=== PATIENT | female | born 2000 | race Caucasian/White ===

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

== ENCOUNTER → 2021-01-04 07:51 | Outpatient (BNVA) | payer OTHER, SELFPAY | PROVIDERS: PCP Family Medicine; Visit Provider Physician Assistant ==

== ENCOUNTER → 2021-01-05 15:22 | Outpatient (BNVA) | payer OTHER, SELFPAY | PROVIDERS: PCP Family Medicine; Visit Provider Surgery | DX: K80.20 Calculus of gallbladder without cholecystitis without obstruction (principal) | CPT/HCPCS: 99202 ==

== ENCOUNTER 2021-01-23 07:25 | Day surgery (SDC) | payer OTHER, SELFPAY ==
[2021-01-17 10:58] VITALS: BMI 26.2
--- NOTE | 2021-01-18 15:05 | P.CONAN_ITS ---
Documented by User: Tati Suresh 01/18/21 15:12 HPI - Anesthesia Eval Consult details Narrative: 20yo F for Cholecystectomy Laparoscopic,poss open PMFSH Active Problems Active Problems: All Active Problems (Updated 01/17/21 @ 11:01 by Patricia Potts) Abdominal pain (Acute) Depression (Acute) Abnormal abdominal ultrasound (Acute) Symptomatic cholelithiasis (Acute) Gastroesophageal reflux disease (Acute) Past Medical History Medical History (Updated 01/23/21 @ 08:08 by Kyra Nunez RN) Anxiety Bilateral congenital whfrhg-zggdmig-kjjll reflux COVID-19 vaccine series completed Depression Gastroesophageal reflux disease TMJ dysfunction Family History Family History Maternal Grandfather Lymphoma Family/Other Lung cancer Family/Other History of kidney cancer Surgical History Surgical History H/O eye surgery [place] teeth removed Social History Social History Household Members: Family Household Members Other:: Patient lives with Grandmother Are you a primary animal care service worker to a significant other at home: No Do you presently have visiting nurse or other home services: No Alcohol intake: never Patient Tobacco Use Status: Never used Tobacco Use of substances other than those prescribed or required for medical reasons: No Have you been hit, kicked, punched, or otherwise hurt by someone within the past year? If so, by whom?: No Are you DNR?: No Advance Directives: No Advance Directives Information Provided: No Advance Directives on File: No Recently lost weight without trying: No Eating poorly because of decreased appetite: No Nutrition Risks: No Nutritional Risk Patient : No FDLMP: 01/16/21 : No Current occupational status: student Meds Allergies Allergy/AdvReac Type Severity Reaction Status Date / Time pantoprazole Allergy Hives Verified 01/23/21 08:03 Home Medications Medication Instructions Recorded Confirmed Last Taken Type clonidine HCl 0.2 mg tablet 0.2 mg PO BEDTIME 10/13/20 01/17/21 Unknown History hydroxyzine pamoate 25 mg capsule 25 mg PO TID PRN 10/13/20 01/17/21 Unknown History sertraline 100 mg tablet 100 mg PO BEDTIME 10/13/20 01/17/21 Unknown History venlafaxine 37.5 mg 37.5 mg PO BID 01/05/21 01/17/21 Unknown History capsule,extended release 24 hr Exam Exam Date and Time: January 18, 2021 1505 Height,Weight and Vital Signs: Height 5 ft 9 in Weight 80.739 kg Pertinent Lab Results Pertinent Lab Results: Laboratory Tests 10/14/20 10/14/20 09:49 09:49 WBC 8.3 Hgb 13.2 Hct 41.9 Plt Count 339 Sodium 140 Potassium 4.4 Chloride 104 Carbon Dioxide 27 BUN 8 L Creatinine 0.79 Assessment and Plan Assessment Anesthesia Assessment: Chart Reviewed Documented by User: Una Sadler 01/23/21 08:53 [facility] Past Medical History Medical History (Updated 01/23/21 @ 08:08 by Kyra Nunez RN) Anxiety Bilateral congenital beaqgi-jrmqvzd-vwpso reflux COVID-19 vaccine series completed Depression Gastroesophageal reflux disease TMJ dysfunction Family History Family History Maternal Grandfather Lymphoma Family/Other Lung cancer Family/Other History of kidney cancer Surgical History Surgical History H/O eye surgery [place] teeth removed Social History Social History Household Members: Family Household Members Other:: Patient lives with Grandmother Are you a primary animal care service worker to a significant other at home: No Do you presently have visiting nurse or other home services: No Alcohol intake: never Patient Tobacco Use Status: Never used Tobacco Use of substances other than those prescribed or required for medical reasons: No Have you been hit, kicked, punched, or otherwise hurt by someone within the past year? If so, by whom?: No Are you DNR?: No Advance Directives: No Advance Directives Information Provided: No Advance Directives on File: No Recently lost weight without trying: No Eating poorly because of decreased appetite: No Nutrition Risks: No Nutritional Risk Patient : No FDLMP: 01/16/21 : No Current occupational status: student Meds Allergies Allergy/AdvReac Type Severity Reaction Status Date / Time pantoprazole Allergy Hives Verified 01/23/21 08:03 Home Medications Medication Instructions Recorded Confirmed Last Taken Type clonidine HCl 0.2 mg tablet 0.2 mg PO BEDTIME 10/13/20 01/17/21 Unknown History hydroxyzine pamoate 25 mg capsule 25 mg PO TID PRN 10/13/20 01/17/21 Unknown History sertraline 100 mg tablet 100 mg PO BEDTIME 10/13/20 01/17/21 Unknown History venlafaxine 37.5 mg 37.5 mg PO BID 01/05/21 01/17/21 Unknown History capsule,extended release 24 hr Exam Airway Mallampati Class: II (Limited mouth open due to tmj) TM Dist: >3cm Neck ROM: Full Heart: rrr Lungs: cta Assessment and Plan Assessment Anesthesia Assessment: Anesthesia Plan Discussed and Chart Reviewed Final Anesthetic Review NPO: Yes ASA Class: II Final Preanesthetic Review: No Changes in Pt Med Stat and Consent Obtained/Reviewed Patient Risk: Intermediate Procedure Risk: Intermediate Anesthetic Plan Anesthetic Plan: GA Disposition: Standard PACU
[2021-01-23] VITALS (15 sets, daily range): BP systolic 97–120; BP diastolic 55–69; PULSE 73–100; RESP 14–18; TEMP 36.1–36.6; O2SAT 94–100
[2021-01-23 08:12] LABS: UPreg QC Valid YES; Urine Pregnancy NEGATIVE (NEGATIVE)
[2021-01-23] MEDS: Acetaminophen 325 MG TABLET 650 MG PO (08:32)
[2021-01-23] MEDS: Lactated Ringers 1,000 ML 100 ML IVCONT (08:42)
--- NOTE | 2021-01-23 09:06 | PC.NURSE ---
AFTER RECEIVING IV INSERTION PATIENT STARTED TO DRY HEAVE AND FELT NAUSEOUS. NO VOMITTING. APPLIED COOL CLOTHS TO HER FOREHEAD. OFFERRED NAUSEA MEDICATION AND REFUSED.
--- NOTE | 2021-01-23 09:11 | MHC.SHP ---
Pre-Procedural Eval Section A The patient is an INPATIENT: No Changes since office visit: Yes Patient answered all questions; No Cold of Flu in the past 2 weeks, No New Medical Problems and No Changes in Medication The History & Physical has been completed within 30 days and I have reviewed it.: Yes Section B Chief Complaint: calculus of gallbladder Allergies: Allergies Allergy/AdvReac Type Severity Reaction Status Date / Time pantoprazole Allergy Hives Verified 01/23/21 08:03 Plan Diagnosis/Plan: Unchanged I have reviewed the history and physical and performed a pertinent physical examination on my patient. No changes have occurred unless specified.
--- NOTE | 2021-01-23 11:06 | P.OP_ITS ---
Operative Note Operative Note Date of Service: 01/23/21 Narrative: Preoperative diagnosis: Symptomatic cholelithiasis Postoperative diagnosis: Same Procedure: Laparoscopic cholecystectomy Surgeon: Rodrick Garcia MD Final Finisher Forging Dies: No physician Anesthesia: General endotracheal Indications for procedure: 20-year-old female patient with complaints of abdominal pain in the epigastrium right upper quadrant associated with nausea and vomiting found to have gallstones within the gallbladder and tenderness palpation of the gallbladder with the ultrasound. Findings suggestive of symptomatic cholelithiasis Operative findings: Multiple adhesions to the gallbladder from the transverse mesocolon with inflamed gallbladder and stone at the neck of the gallbladder. Specimen: Gallbladder Estimated blood loss: 5 mL Complications: None Procedure details: Patient was brought to the OR and placed in a supine position. After administering general anesthesia the patient's abdomen was prepped with ChloraPrep and draped in a sterile fashion. Local anesthesia consisting of 0.25% Sensorcaine with epinephrine was infiltrated in a periumbilical region. A 5 mm incision was made above the umbilicus in a transverse fashion. The Veress needle was then inserted while elevating ab dominal cavity with towel clips. After positive drop test the abdomen was insufflated to a pressure of 15 mm of mercury. The Veress needle was then removed and a 5 mm trocar inserted. The camera was inserted in the abdomen explored. A 12 mm trocar was then placed in the epigastrium and two 5 mm trocars placed in the right upper quadrant. The patient was placed in reverse Trendelenburg positioning and rotated to the left. The gallbladder was grasped with the fundus and retracted cephalad. Adhesions were taken down using the Dolphin dye sector. The infundibulum was then grasped and retracted away from the liver bed. The Dolphin dissected was then used to dissect the peritoneum off the infundibulum to reveal the junction with the cystic duct. Cystic artery was noted slightly medial and posterior to the cystic duct. After obtaining a critical view the cystic duct was doubly clipped and divided. The cystic artery was then doubly clipped and divided. A posterior branch was also identified and doubly clipped and divided. The gallbladder was then dissected off the liver bed using electrocautery with an L hook. Hemostasis was assured all times using the electrocautery. When the gallbladder is completely dissected off the liver bed was placed in an Endo-Catch bag and brought out through the epigastric incision. The gallbladder was sent to pathology for further examination. The abdomen was then re-examined. The liver bed was irrigated and suctioned dry. No bleeding or bile leak could be identified. CO2 was then evacuated and all trocars removed. Fascia was closed at the epigastric incision using a [id number] 0 Polysorb suture. Skin was closed in all incisions using a subcuticular 4 0 Polysorb suture. Sterile dressings consisting of Steri-Strips, 2 x 2 gauze, and Tegaderm were then applied. The patient tolerated the procedure well. Sponge instrument and needle counts reported as correct. The patient was transferred to PACU in stable condition.
[2021-01-23] MEDS: fentaNYL citrate/PF 100 MCG/2 ML VIAL 50 MCG IVPUSH ×3 (11:25→12:35)
[2021-01-23] MEDS: oxyCODONE HCl Immed Release 5 MG TABLET PO (11:30)
== END 2021-01-23 13:45 | disposition home or self-care (01) ==
PROVIDERS: Nurse Practitioner; PCP Family Medicine; Visit Provider Surgery
PROC: 0FT44ZZ Resection of Gallbladder, Percutaneous Endoscopic Approach (ICD-10-PCS; CPT 47562; principal; 2021-01-23 09:30)
DX: K80.10 Calculus of gallbladder with chronic cholecystitis without obstruction (principal); K82.8 Other specified diseases of gallbladder; K21.9 Gastro-esophageal reflux disease without esophagitis; Q62.7 Congenital vesico-uretero-renal reflux; Z90.49 Acquired absence of other specified parts of digestive tract
CPT/HCPCS: 47562; 81025; 88304; J0330; J1100; J2250; J2405; J2765; J3010

== ENCOUNTER → 2021-01-31 09:09 | Outpatient (BNVA) | payer OTHER, SELFPAY | PROVIDERS: PCP Family Medicine; Visit Provider Surgery | DX: Z48.815 Encounter for surgical aftercare following surgery on the digestive system (principal); Z90.49 Acquired absence of other specified parts of digestive tract; Z87.19 Personal history of other diseases of the digestive system | CPT/HCPCS: 99212 ==

== ENCOUNTER → 2021-02-15 08:03 | Outpatient (BNVA) | payer OTHER, SELFPAY | PROVIDERS: PCP Family Medicine; Visit Provider Physician Assistant ==

== ENCOUNTER 2021-02-21 16:13 | Outpatient (REF) | payer OTHER, SELFPAY ==
[2021-02-21 17:22] LABS: MANUAL DIFF FLAG NO
[2021-02-21 17:26] LABS: Basophils Absolute Auto 0.1 X10*3/uL (0.0-0.2); Basophils Percent Auto 0.7 % (0-2); Eosinophils Absolute Auto 0.3 X10*3/uL (0.0-0.4); Eosinophils Percent Auto 3.2 % (0-4); Hematocrit 42.4 % (37-47); Hemoglobin 13.5 g/dl (12.0-16.0); Imm Gran Abs Auto 0.02 X10*3/uL (0.00-0.03); Imm Gran Pct Auto 0.2 % (0.0-0.4); Lymphocytes Absolute Auto 3.7 X10*3/uL (1.2-4.9); Lymphocytes Percent Auto 37.2 % (20-40); Mean Corpuscular HGB Conc 31.8 g/dl (31.0-35.0); Mean Corpuscular Hemoglobin 27.1 pg (27.0-33.0); Mean Corpuscular Volume 85.1 fL (80-98); Mean Platelet Volume 13.1 fL (9.4-12.3); Monocytes Absolute Auto 0.8 X10*3/uL (0.1-1.2); Monocytes Percent Auto 7.6 % (2-11); Neutrophils Absolute Auto 5.1 X10*3/uL (2.0-8.3); Neutrophils Percent Auto 51.1 % (45-73); Platelet Count 303 X10*3/uL (160-400); Red Blood Count 4.98 X10*6/uL (4.20-5.50); Red Cell Distribution Width 14.5 % (11.0-16.0); White Blood Count 9.9 X10*3/uL (4.8-10.8)
[2021-02-21 17:44] LABS: Alanine Aminotransferase 9 U/L (0-31); Albumin Level 4.4 g/dL (3.5-5.0); Alkaline Phosphatase 115 U/L (39-117); Anion Gap 13 (12-20); Aspartate Amino Transferase 17 U/L (5-31); Bilirubin Total 0.2 mg/dL (0.0-1.0); Blood Urea Nitrogen 10 mg/dL (9-16); Calcium 9.4 mg/dL (8.4-10.2); Carbon Dioxide 22 mmol/L (22-29); Chloride 108 mmol/L (96-108); Estimated Glomerular Filt Rate > 60; Glucose Random 96 mg/dL (60-115); Potassium 4.2 mmol/L (3.3-5.1); Sodium 139 mmol/L (135-145); Total Protein 7.7 g/dL (6.5-8.0)
[2021-02-21 18:03] LABS: Ferritin 66 ng/mL (10-122)
== END 2021-02-21 16:14 | disposition home or self-care (01) ==
LOC: HO.LAB 16:13
PROVIDERS: Physician Assistant; PCP Pediatrics; Visit Provider Pediatrics
DX: R10.11 Right upper quadrant pain (principal); R42 Dizziness and giddiness; R74.01 Elevation of levels of liver transaminase levels
CPT/HCPCS: 36415; 80053; 82728; 85025

== ENCOUNTER 2021-02-25 13:31 | Emergency (ER) | payer OTHER, SELFPAY ==
[2021-02-25 13:36] VITALS: BP 128/84; PULSE 103; RESP 18; TEMP 37.3; O2SAT 97; BMI 25.1
--- NOTE | 2021-02-25 14:25 | ED.ABDPAIN ---
HPI - Abdominal Pain General Chief Complaint: Abdominal Pain Stated Complaint: ABD PAIN Time Seen by Provider: 02/25/21 14:25 Source: patient Mode of arrival: ambulatory Limitations: no limitations History of Present Illness HPI narrative: patient with left sided abdominal pain for the past few months. patient with vomiting. patient had her gallbladder removed with no improvement. Patient is followed by GI and supposed to be scoped. Patient denies dysuria, no hematuria MD elicited complaint: abdominal pain Pertinent past history: none Onset (ago): month(s) Pain Consistency: intermittent Location: LUQ Severity: mild Quality: cramping Associated symptoms: nausea and vomiting Related Data Home Medications Medication Instructions Recorded Confirmed clonidine HCl 0.2 mg tablet 0.2 mg PO BEDTIME 10/13/20 02/21/21 hydroxyzine pamoate 25 mg capsule 25 mg PO TID PRN 10/13/20 02/21/21 sertraline 100 mg tablet 100 mg PO BEDTIME 10/13/20 02/21/21 venlafaxine 37.5 mg 37.5 mg PO BID 01/05/21 02/21/21 capsule,extended release 24 hr omeprazole 40 mg capsule,delayed 40 mg PO DAILY 02/15/21 02/21/21 release Previous Rx's Medication Instructions Recorded methylcellulose (laxative) 500 mg 500 mg PO BID #60 tab 11/30/20 tablet barium sulfate 2 % (w/v) oral 450 ml PO DIRECTED 1 Days #900 02/15/21 suspension ml hyoscyamine sulfate [Levsin] 0.25 mg PO QID PRN #20 tab 02/25/21 Allergies Allergy/AdvReac Type Severity Reaction Status Date / Time pantoprazole Allergy Hives Verified 02/15/21 08:04 Review of Systems Constitutional: Reports no additional constitutional complaints Eyes: Reports no additional eye complaints Denies dizziness Cardiovascular: Reports no additional cardiovascular complaints Respiratory: Reports as per HPI Gastrointestinal: Reports no additional gastrointestinal complaints Genitourinary: Reports no additional female genitourinary complaints Musculoskeletal: Reports no additional musculoskeletal complaints Skin/Breast: Denies rash Reports system reviewed and no additional complaints, except as documented, Denies dizziness and Denies Sensory deficit (Neuro) Psychiatric: Denies anxiety Physical Exam Vital Signs: Vital Signs: Last Vital Signs Temp 99.1 F 02/25/21 13:36 Pulse 103 H 02/25/21 13:36 Resp 18 02/25/21 13:36 BP 128/84 02/25/21 13:36 Pulse Ox 97 02/25/21 13:36 Body Mass Index 25.1 Const: Other: young female slightly anxious in no acute distress. Nutritional Appearance: average body habitus Orientation/consciousness: oriented to person and patient oriented x3 Limitations: no limitations HENMT: Head: Yes normal to inspection Ears: external ears normal General nose exam: Normal external nose present Mouth: Normal oral and palatal mucosa present and oropharynx normal Throat: Yes posterior oropharynx normal Eyes: General: appearance normal, both eyes and all related structures Neck: Other: supple Neck: Yes normal visual inspection Chest: Chest palpation & inspection: normal inspection of the chest Resp: Auscultation: clear to auscultation bilaterally Cardio: Jugular venous distension: no JVD Rate: regular rate Rhythm: regular rhythm Heart sounds: S1 normal heart sound present and S2 normal heart sound present GI: Inspection: Yes normal to inspection Palpation (GI): Soft to palpation, nontender and No hepatosplenomegaly present Auscultation: normal bowel sounds : General: Yes no CVA tenderness Back/Spine/Pelvis: Back: no CVA tenderness Skin: General skin exam: no rashes or lesions noted Neuro: General: oriented to person and patient oriented x3 Cranial nerves: Yes CN's II-XII intact bilaterally Motor exam (neuro): 5/5 motor strength present throughout Sensory Exam: No Sensory deficit (Neuro) Extrem: General: Yes normal to inspection Psych: Appearance: grossly normal Course Reevaluation(s) Reevaluation #1: I have reviewed the patients charts. In the past two weeks she has been seen by both her supervisor drying and GI. There appears to be some anxiety overlay to the situation but patient is scheduled for CT scan and scoping. Time: 14:38 Reevaluation #2: labs and urine are negative, patient not acutely ill at this time will dc home Time: 17:40 MDM - Abdominal Pain Lab Data Result diagrams: 02/25/21 14:54 02/25/21 14:54 Labs: Lab Results 02/25/21 02/25/21 02/25/21 Range/Units 14:54 14:54 16:35 WBC 8.7 (4.8-10.8) X10*3/uL RBC 4.61 (4.20-5.50) X10*6/uL Hgb 12.7 (12.0-16.0) g/dl Hct 39.1 (37-47) % MCV 84.8 (80-98) fL MCH 27.5 (27.0-33.0) pg MCHC 32.5 (31.0-35.0) g/dl RDW 14.3 (11.0-16.0) % Plt Count 274 (160-400) X10*3/uL MPV 11.7 (9.4-12.3) fL Immature Gran % (Auto) 0.2 (0.0-0.4) % Neut % (Auto) 66.5 (45-73) % Lymph % (Auto) 24.2 (20-40) % Iron % (Auto) 7.4 (2-11) % Eos % (Auto) 1.2 (0-4) % Baso % (Auto) 0.5 (0-2) % Lymph # (Auto) 2.1 (1.2-4.9) X10*3/uL Iron # (Auto) 0.6 (0.1-1.2) X10*3/uL Eos # (Auto) 0.1 (0.0-0.4) X10*3/uL Baso # (Auto) 0.0 (0.0-0.2) X10*3/uL Abs Immat Gran (auto) 0.02 (0.00-0.03) X10*3/uL Absolute Neuts (auto) 5.8 (2.0-8.3) X10*3/uL Absolute Nucleated RBC 0.000 (0.0-0.012) X10*3/uL Nucleated RBC % (auto) 0.0 (0.0-0.2) /100WBC Sodium 139 (135-145) mmol/L Potassium 4.2 (3.3-5.1) mmol/L Chloride 106 (96-108) mmol/L Carbon Dioxide 22 (22-29) mmol/L Anion Gap 15 (12-20) BUN 6 L (9-16) mg/dL Creatinine 0.74 (0.5-1.4) mg/dL Estim Creat Clear Calc 127.8 Estimated GFR > 60 Random Glucose 76 (60-115) mg/dL Calcium 9.5 (8.4-10.2) mg/dL Total Bilirubin 0.7 (0.0-1.0) mg/dL Direct Bilirubin 0.3 (0.0-0.5) mg/dL AST 17 (5-31) U/L ALT 13 (0-31) U/L Alkaline Phosphatase 104 (39-117) U/L Total Protein 7.3 (6.5-8.0) g/dL Albumin 4.3 (3.5-5.0) g/dL Lipase 12 (8-78) U/L Urine RBC 0 (0) /HPF Urine WBC 1-4 (0-4) /HPF Ur Squamous Epith Cells 4+ /LPF Ur Renal Epithelial Cell TRACE /LPF Urine Bacteria 3+ /LPF Urine Yeast 1+ /HPF Urine Test (NEGATIVE) 02/25/21 Range/Units 16:35 WBC (4.8-10.8) X10*3/uL RBC (4.20-5.50) X10*6/uL Hgb (12.0-16.0) g/dl Hct (37-47) % MCV (80-98) fL MCH (27.0-33.0) pg MCHC (31.0-35.0) g/dl RDW (11.0-16.0) % Plt Count (160-400) X10*3/uL MPV (9.4-12.3) fL Immature Gran % (Auto) (0.0-0.4) % Neut % (Auto) (45-73) % Lymph % (Auto) (20-40) % Iron % (Auto) (2-11) % Eos % (Auto) (0-4) % Baso % (Auto) (0-2) % Lymph # (Auto) (1.2-4.9) X10*3/uL Iron # (Auto) (0.1-1.2) X10*3/uL Eos # (Auto) (0.0-0.4) X10*3/uL Baso # (Auto) (0.0-0.2) X10*3/uL Abs Immat Gran (auto) (0.00-0.03) X10*3/uL Absolute Neuts (auto) (2.0-8.3) X10*3/uL Absolute Nucleated RBC (0.0-0.012) X10*3/uL Nucleated RBC % (auto) (0.0-0.2) /100WBC Sodium (135-145) mmol/L Potassium (3.3-5.1) mmol/L Chloride (96-108) mmol/L Carbon Dioxide (22-29) mmol/L Anion Gap (12-20) BUN (9-16) mg/dL Creatinine (0.5-1.4) mg/dL Estim Creat Clear Calc Estimated GFR Random Glucose (60-115) mg/dL Calcium (8.4-10.2) mg/dL Total Bilirubin (0.0-1.0) mg/dL Direct Bilirubin (0.0-0.5) mg/dL AST (5-31) U/L ALT (0-31) U/L Alkaline Phosphatase (39-117) U/L Total Protein (6.5-8.0) g/dL Albumin (3.5-5.0) g/dL Lipase (8-78) U/L Urine RBC (0) /HPF Urine WBC (0-4) /HPF Ur Squamous Epith Cells /LPF Ur Renal Epithelial Cell /LPF Urine Bacteria /LPF Urine Yeast /HPF Urine Test NEGATIVE (NEGATIVE) Discharge Plan Discharge Clinical Impression: Abdominal pain Qualifiers: Abdominal location: left lower quadrant Qualified Code(s): R10.32 - Left lower quadrant pain Patient Disposition: Home, Self-Care Instructions: Abdominal Pain (ED) Prescriptions: New hyoscyamine sulfate [Levsin] 0.125 mg tablet 0.25 mg PO QID PRN (Reason: dyspepsia) Qty: 20 RF: 0 No Action hydroxyzine pamoate 25 mg capsule 25 mg PO TID PRN (Reason: Anxiety) RF: 0 clonidine HCl 0.2 mg tablet 0.2 mg PO BEDTIME RF: 0 sertraline 100 mg tablet 100 mg PO BEDTIME RF: 0 Citrucel 500 mg tablet 500 mg PO BID Qty: 60 RF: 5 venlafaxine 37.5 mg capsule,extended release 24hr 37.5 mg PO BID RF: 0 omeprazole 40 mg capsule,delayed release(DR/EC) 40 mg PO DAILY RF: 0 Readi-Cat 2 2 % (w/v) suspension 450 ml PO DIRECTED 1 Days Qty: 900 RF: 0 Referrals: Emmanuelle Rosado MD [Primary Care Provider] - 5 days PMFSH Past Medical History Medical History Anxiety Bilateral congenital oqkmmv-anhmpst-ccyle reflux COVID-19 vaccine series completed Depression Gastroesophageal reflux disease TMJ dysfunction Surgical History H/O eye surgery S/P laparoscopic cholecystectomy (01/23/21) [place] teeth removed Family History Family History Maternal Grandfather Lymphoma Family/Other Lung cancer Family/Other History of kidney cancer Social History Social History Household Members: Family Household Members Other:: Patient lives with Grandmother Are you a primary healthcare liaison to a significant other at home: No Do you presently have visiting nurse or other home services: No Alcohol intake: never Patient Tobacco Use Status: Never used Tobacco Advance Directives: No Advance Directives Information Provided: Yes Patient : No Current occupational status: student
[2021-02-25 14:59] LABS: Basophils Percent Auto 0.5 % (0-2); Eosinophils Absolute Auto 0.1 X10*3/uL (0.0-0.4); Eosinophils Percent Auto 1.2 % (0-4); Hematocrit 39.1 % (37-47); Hemoglobin 12.7 g/dl (12.0-16.0); Imm Gran Abs Auto 0.02 X10*3/uL (0.00-0.03); Imm Gran Pct Auto 0.2 % (0.0-0.4); Lymphocytes Absolute Auto 2.1 X10*3/uL (1.2-4.9); Lymphocytes Percent Auto 24.2 % (20-40); Mean Corpuscular HGB Conc 32.5 g/dl (31.0-35.0); Mean Corpuscular Hemoglobin 27.5 pg (27.0-33.0); Mean Corpuscular Volume 84.8 fL (80-98); Mean Platelet Volume 11.7 fL (9.4-12.3); Monocytes Absolute Auto 0.6 X10*3/uL (0.1-1.2); Monocytes Percent Auto 7.4 % (2-11); Neutrophils Absolute Auto 5.8 X10*3/uL (2.0-8.3); Neutrophils Percent Auto 66.5 % (45-73); Platelet Count 274 X10*3/uL (160-400); Red Blood Count 4.61 X10*6/uL (4.20-5.50); Red Cell Distribution Width 14.3 % (11.0-16.0); White Blood Count 8.7 X10*3/uL (4.8-10.8)
[2021-02-25 15:00] LABS: MANUAL DIFF FLAG NO
[2021-02-25 15:41] LABS: Alanine Aminotransferase 13 U/L (0-31); Albumin Level 4.3 g/dL (3.5-5.0); Alkaline Phosphatase 104 U/L (39-117); Anion Gap 15 (12-20); Aspartate Amino Transferase 17 U/L (5-31); Bilirubin Direct 0.3 mg/dL (0.0-0.5); Bilirubin Total 0.7 mg/dL (0.0-1.0); Blood Urea Nitrogen 6 mg/dL (9-16); Calcium 9.5 mg/dL (8.4-10.2); Carbon Dioxide 22 mmol/L (22-29); Chloride 106 mmol/L (96-108); Creatinine Clr Calc Pharmacy 127.8; Estimated Glomerular Filt Rate > 60; Glucose Random 76 mg/dL (60-115); Lipase 12 U/L (8-78); Potassium 4.2 mmol/L (3.3-5.1); Sodium 139 mmol/L (135-145); Total Protein 7.3 g/dL (6.5-8.0)
[2021-02-25 16:58] LABS: Glucose Urine UA NEG (NEG); Leukocyte Esterase Urine TRACE (NEG); Nitrite Urine NEG (NEG); Specific Gravity - Urine >= 1.030 (1.005-1.025); UACC Culture Trigger YES; Urine Blood 2+ (NEG); Urine Ketones >=80 MG/DL (NEG); Urine Protein NEG (NEG-TRACE)
[2021-02-25 17:02] LABS: Appearance Urine HAZY; Color Urine YELLOW
[2021-02-25 17:03] LABS: UPreg QC Valid YES; Urine Pregnancy NEGATIVE (NEGATIVE)
[2021-02-25 17:26] LABS: Bacteria Urine 3+ /LPF; RBC Urine 0 /HPF (0); Renal Epithelial Cells Urine TRACE /LPF; Squamous Epithelial Cell Urine 4+ /LPF; UACC CULT YES
== END 2021-02-25 18:27 | disposition home or self-care (01) ==
PROVIDERS: Emergency Provider Emergency Medicine; PCP Pediatrics
DX: R10.32 Left lower quadrant pain (principal)
CPT/HCPCS: 36415; 80048; 80076; 81001; 81003; 81025; 83690; 85025; 87086; 99283

== ENCOUNTER 2021-03-01 14:08 | Outpatient (REF) | payer OTHER, SELFPAY ==
--- NOTE | ~2021-03-01 | CT_ITS ---
EXAMINATION: CT ABDOMEN AND PELVIS WITH CONTRAST CLINICAL INFORMATION: Abdominal pain. COMPARISON: Ultrasound abdomen 12/14/2020. TECHNIQUE: Multidetector volumetric images were obtained from the superior aspect of the liver through the pubic symphysis following administration 85 mL of Omnipaque 350 intravenous contrast. Sagittal and coronal reformatted images were obtained on the technologist's workstation. Oral contrast: No This CT examination was performed using dose optimization techniques as appropriate, variously including the following: *Automated exposure control *Adjustment of mA and/or kV according to patient size (this includes techniques or standardized protocols for targeted exams where dose is matched to indication/reason for exam; i.e. extremities or head) *Use of iterative reconstruction technique DLP: 396 mGy-cm FINDINGS: LUNG BASES: The visualized lung bases are unremarkable. LIVER, GALLBLADDER, AND BILIARY TREE: The liver is normal in size, shape, and attenuation. No focal hepatic lesion or biliary ductal dilatation is present. The gallbladder has been surgically removed. PANCREAS: Unremarkable. SPLEEN: Unremarkable. ADRENAL GLANDS: Unremarkable. KIDNEYS AND URETERS: The kidneys are normal in size, shape, and attenuation. No hydronephrosis, hydroureter, or calculi seen. No perinephric stranding. BLADDER: Unremarkable. GASTROINTESTINAL TRACT: The small and large bowel are unremarkable. The appendix is unremarkable. ABDOMINAL WALL: No significant hernia is appreciated. There is a linear scar seen in upper abdominal wall from previous intervention. LYMPH NODES: Normal. VASCULAR: Unremarkable. PELVIC VISCERA: The uterus is retroverted and appears unremarkable. No adnexal mass or free fluid seen. OSSEOUS STRUCTURES: There is punctate annular calcification at L5-S1 disc level. CT/CT abdomen pelvis w con IMPRESSION: No acute intra-abdominal process seen. Mild constipation. No obstruction seen. Normal appendix. Retroverted uterus appears unremarkable.
[2021-03-01] MEDS: iohexoL 350 MG/ML 100 ML INFUS..BTL 85 ML IV (14:44)
== END 2021-03-01 14:09 | disposition home or self-care (01) ==
LOC: HO.CT 14:08
PROVIDERS: PCP Physician Assistant; Visit Provider Physician Assistant
DX: R10.9 Unspecified abdominal pain (principal)
CPT/HCPCS: 74177; Q9967

== ENCOUNTER → 2021-03-08 13:52 | Outpatient (BNVA) | payer OTHER, SELFPAY | PROVIDERS: PCP Physician Assistant; Referring Provider Physician Assistant; Visit Provider Physician Assistant | DX: R10.9 Unspecified abdominal pain (principal); K21.9 Gastro-esophageal reflux disease without esophagitis; F32.9 Major depressive disorder, single episode, unspecified | CPT/HCPCS: 99212 ==

== ENCOUNTER 2023-08-07 10:00 | Outpatient (AMB) | payer OTHER, SELFPAY ==
[2023-08-07 11:00] VITALS: BP 118/70; PULSE 77; TEMP 36.7; O2SAT 99; BMI 24.8
--- NOTE | 2023-08-07 11:00 | MHC.OFFWIV ---
Intake Vital Signs 08/07/23 11:00 Height 5 ft 9 in Weight 168 lb BMI 24.8 BP 118/70 Blood Pressure Location Rt brachial Position Sitting Pulse 77 Pulse Source Pulse Oximeter Temp 98.1 F Temp Source Oral Pulse Oximetry (%) 99 Oxygen Delivery Method Room Air Intake Visit Reasons: EST/throwing up (lobby masked) Intake Note: pt is here for c.o throwing up 3x days Patient Tobacco Use Status: Never used Tobacco Allergies No Known Allergies Allergy (Verified 08/07/23 11:05) Do you need a note to return to daycare/school/sports/work: Yes HPI HPI Comments History of Present Illness Details Patient is a 23-year-old female in today for a sick visit. She is accompanied by her grandmother. She developed symptoms of nausea and vomiting x3 days. Denies recent fever, chest pain, diarrhea, constipation, dizziness, shortness of breath, blood in stool, or coffee-ground emesis. Patient has past medical history significant for vomiting and stomach discomfort with unknown etiology. She has a surgical history of cholecystectomy. Over the past 3 days the patient states that most the vomiting has occurred overnight. Has not tried taking any medication. She does also have anxiety which she believes contributes to the problem. Denies anyone else at home is sick. 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 COVID-19 vaccine series completed Anxiety Depression Gastroesophageal reflux disease Surgical History S/P laparoscopic cholecystectomy (01/23/21) [place] teeth removed H/O eye surgery Family History Maternal Grandfather Lymphoma Family/Other Lung cancer Family/Other History of kidney cancer Social History Household Members: Family Household Members Other:: Patient lives with Grandmother Are you a primary furnace caretaker to a significant other at home: No Do you presently have visiting nurse or other home services: No Alcohol intake: never Comment: medicated in pacu Patient Tobacco Use Status: Never used Tobacco Current occupational status: student Review of Systems Const Details: Constitutional : No Weight loss, No Fever, No Chills, No Fatigue, No Malaise ENT/Mouth : No sore throat, No Rhinorrhea Eyes: No Eye Pain, No Swelling, No Redness Cardiovascular : No Chest Pain, No SOB, No Dyspnea on Exertion, No Orthopnea, No Edema, No Palpitations Respiratory : No Cough, No Sputum, No Wheezing Gastrointestinal : Admits Nausea, Admits Vomiting, No Diarrhea, No Constipation, No abdominal Pain, No Hematochezia, No Melena Genitourinary : No Dysuria, No Urinary Frequency, No Hematuria, Musculoskeletal : No joint pain, No Myalgias, No Joint Swelling Skin : No Skin Lesions, No rash Neuro : No Weakness, No Numbness, No Dizziness, No Headache Psych : Admits some Anxiety/Panic Heme/Lymph: No Bruising, No Bleeding,No Lymphadenopathy Endocrine : No Polyuria, No Polydipsia All other systems reviewed and are negative Physical Exam Vital Signs: Last Vital Signs Temp 98.1 F 08/07/23 11:00 Pulse 77 08/07/23 11:00 BP 118/70 08/07/23 11:00 Pulse Ox 99 08/07/23 11:00 Oxygen Delivery Method Room Air 08/07/23 11:00 BMI result Body Mass Index 24.8 Vital signs have been reviewed and are stable Const Other: Appearance: Alert.? Oriented X3.? No acute distress.? ENT: Pharynx normal.? CVS: Normal heart rate and rhythm.? Pulses normal.? Respiratory: No respiratory distress.? Breath sounds normal.? Abdomen: Soft and nontender.?Hypoactive bowel sounds. Skin: Skin warm and dry.? Normal skin color.? Normal skin turgor.? Neuro: Oriented X 3.? No motor deficit.? No sensory deficit. CN 2-12 intact Patient can tolerate liquids. Results Reviewed Results Reviewed: Will call patient with lab results. Assessment & Plan Assessment & Plan (1) Nausea & vomiting: Comment: Patient will be given ondansetron, omeprazole, to be taken as directed. Patient has been educated on side effects of these medications and how to take them properly. The patient has also been educated on the need to drink plenty of fluids especially those with electrolyte, and to try to eat bland foods. She has been educated on signs of worsening symptoms and when to report back to the walk-in or when to report to the emergency room. Code(s): R11.2 - Nausea with vomiting, unspecified Qualifiers: Vomiting type: unspecified Qualified Code(s): R11.2 - Nausea with vomiting, unspecified Plan: Follow-up with PCP Plan Take your medications as prescribed. If you were prescribed antibiotics today, it is important that you take your medication to their entirety, do not skip any doses, do not finish them early. Follow-up with your primary care provider this week. Return to the emergency department with new or worsening symptoms. Such as fevers, chills, chest pain, shortness of breath, nausea, vomiting, dizziness, headache, vision changes, lethargy In case of emergency call 911 Orders: Orders Complete Blood Count Auto Diff Today R11.2 - Nausea with vomiting, unspecified Lipase Today R11.2 - Nausea with vomiting, unspecified Amylase Today R11.2 - Nausea with vomiting, unspecified Erythrocyte Sedimentation Rate Today R11.2 - Nausea with vomiting, unspecified Ur Preg Test Today R11.2 - Nausea with vomiting, unspecified Comprehensive Met. Panel Today R11.2 - Nausea with vomiting, unspecified UA CC w/rflx Micro + Cult Today R11.2 - Nausea with vomiting, unspecified CRP High Sensitivity Today R11.2 - Nausea with vomiting, unspecified Medications: New ondansetron 4 mg PO Q8H PRN 10 tabs 0RF nausea and vomiting omeprazole 20 mg PO DAILY 60 caps 0RF Coding Level of Care Code Est Pt Level 3 (50020) Diagnoses Nausea and vomiting, unspecified vomiting type R11.2 Vomiting type: unspecified Time Spent (min) 25
== END 2023-08-07 11:53 | disposition home or self-care (01) ==
PROVIDERS: PCP Physician Assistant; Visit Provider Nurse Practitioner Primary Care
DX: R11.2 Nausea with vomiting, unspecified (principal)
CPT/HCPCS: 99213

== ENCOUNTER 2023-08-07 11:46 | Outpatient (REF) | payer OTHER, SELFPAY | END 2023-08-07 11:47 | disposition home or self-care (01) | LOC: HO.HMGCLDS 11:46 | PROVIDERS: Visit Provider Nurse Practitioner Primary Care | DX: R11.2 Nausea with vomiting, unspecified (principal) | CPT/HCPCS: 36415; 80053; 82150; 83690; 85025; 85652; 86141 ==

== ENCOUNTER 2023-09-09 09:15 | Outpatient (AMB) | payer OTHER, SELFPAY ==
[2023-09-09 09:16] VITALS: BP 114/66; PULSE 89; O2SAT 99; BMI 24.2
--- NOTE | 2023-09-09 09:16 | MHC.PC.OV ---
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 Intake Note: Patient is a new patient here to establish care Lehr Operator Required: No Allergies No Known Allergies Allergy (Verified 09/09/23 09:34) Medication List - Last Reconciled 09/09/23 by AMANDA Mata clonidine HCl 0.1 mg PO BID escitalopram oxalate 10 mg PO DAILY hydroxyzine pamoate 25 mg PO TID PRN lamotrigine 100 mg PO BID omeprazole 20 mg PO DAILY ondansetron 4 mg PO Q8H PRN Tobacco use date assessed: 09/09/23 Dental Screening Dental Screen Date: 09/09/23 Did you have a dental visit in the last 12 months?: Yes Did you have a dental problem in the last 6 months where you did not have access to dental care?: No Was dental information given to patient?: Patient has dentist HPI HPI Comments History of Present Illness Details 23-year-old female with major depressive disorder, chronic abdominal pain, GERD, bilateral congenital aasbho-ojmcvjg-gdjap reflux, bilat TMJ disorder Status post cholecystectomy Specialists [facility] GI [facility]iat[facility] [place] Wears glasses Health maintenance Pap Immunizations - will get Flu vaccine today Here today for CPE: Really bad periods lately, was on OCP in the past but ran out of refills. Thinks this was helpful for her in the past. Does not smoke, no personal or family hx of bleeding or clotting disorders. Has not had a pap yet. LMP 08/26/2023, denies chance of . Bothered by TMJ on the L side. Went to PT in the past. Would like new referral to ENT for further eval and tx. Was waiting on surgery; referral to plastics or other surgeon group but this did not happen. Also mentions trouble swallowing from time to time. [facility] Medical History Bilateral congenital vduyyi-nnppecq-zpjgh reflux TMJ dysfunction COVID-19 vaccine series completed Anxiety Depression Gastroesophageal reflux disease Surgical History S/P laparoscopic cholecystectomy (01/23/21) [place] teeth removed H/O eye surgery Family History Maternal Grandfather Lymphoma Family/Other Lung cancer Family/Other History of kidney cancer Social History Household Members: Family Household Members Other:: Patient lives with Grandmother Housing: House Are you a primary care team coordinator scheduler to a significant other at home: No Do you presently have visiting nurse or other home services: No Alcohol intake: never Comment: medicated in pacu Patient Tobacco Use Status: Never used Tobacco service: No Current occupational status: student Cognitive needs: No Hearing needs: No Vision needs: No Questionnaire PHQ-9 Over the last 2 weeks, how often have you been bothered by any of the following problems? 1. Little interest or pleasure in doing things: nearly every day 2. Feeling down, depressed, or hopeless: more than half the days 3. Trouble falling or staying asleep, or sleeping too much: several days 4. Feeling tired or having little energy: several days 5. Poor appetite or overeating: several days 6. Feeling bad about yourself - or that you are a failure or have let yourself or your family down: not at all 7. Trouble concentrating on things, such as reading the newspaper or watching television: not at all 8. Moving or speaking so slowly that other people could have noticed. Or the opposite - being so fidgety or restless that you have been moving around a lot more than usual: not at all 9. Thoughts that you would be better off or of hurting yourself in some way: not at all Total score: 8 Depression Screening Interpretation: Positive Depression Screening Follow-up: Existing condition and In treatment Depression Screening Done: Yes 39934 - PHQ-9 Billing: Yes Source: Developed by Drs. Benjamin Villavicencio, Halley Bridges, Roney Thomas and colleagues, with an educational erika from [employer]. Thrive Questionnaire Date Thrive assessed: 09/09/23 I am a: Patient What is your living situation today?: I have a steady place to live Within the past 12 months, did the food you bought not last and you didn't have the money to get more?: Never true Within the past 12 months, did you worry whether your food would run out before you got money to buy more?: Never true Do you have trouble paying for medicines?: No Do you have trouble getting transportation to medical appointments?: No Do you have trouble paying your heating and electricity bill?: No Do you have trouble taking care of your child, family member or friend?: No Do you have trouble with day-to-day activities such as bathing, preparing meals, shopping, managing finances, etc.?: No Are you currently unemployed and looking for a job?: No Are you interested in more education?: No Please select the resources that you would like help with: None THRIVE Score: 0 AUDIT C Alcohol Use Questionnaire (AUDIT-C) 1. How often do you have a drink containing alcohol?: Never 3. How often do you have six or more drinks on one occasion?: Never Total Score: 0 Score Reviewed/Action Taken: Yes SEBASTIEN-7 AMB Questionnaire SEBASTIEN-7 Date SEBASTIEN - 7 assessed: 09/09/23 Feeling nervous, anxious, or on edge: 2 = More than half the days Not being able to stop or control worryin = More than half the days Worrying too much about different things: 2 = More than half the days Trouble relaxin = Not at all Being so restless that it is hard to sit still: 0 = Not at all Becoming easily annoyed or irritable: 0 = Not at all Feeling afraid as if something awful might happen: 0 = Not at all Total SEBASTIEN-7 score (0-4 normal; 5-9 mild; 10-14 moderate; 15-21 severe): 6 Source: Developed by Drs. Benjamin Villavicencio, Halley Bridges, Roney Thomas and colleagues, with an educational erika from [employer]. SEBASTIEN-7 Assessment Billing SEBASTIEN-7 Assessment Tool: SEBASTIEN-7 Assessment 13777 Review of Systems Const Details: Constitutional: Denies fever. Skin: Denies rash. Fungal toenails on the right foot previous treatment without relief Eye: Denies eye pain. ENMT: Denies sore throat and nasal congestion. Complains of occasional trouble swallowing Respiratory: Denies shortness of breath and cough. Gastrointestinal: Denies nausea, vomiting or abdominal pain. Cardiovascular: Denies chest pain and syncope. Genitourinary: Denies dysuria. Musculoskeletal: Denies back pain and extremity pain. Neurologic: Denies headaches, confusion, and weakness. Psychiatric: Denies suicidal thoughts and substance abuse. Allergy/ Immunologic: Denies impaired immunity. All systems reviewed & are unremarkable except as noted in HPI and below Physical exam (Primary Care) Vital Signs: Last Vital Signs Pulse 89 09/09/23 09:16 BP 114/66 09/09/23 09:16 Pulse Ox 99 09/09/23 09:16 Oxygen Delivery Method Room Air 09/09/23 09:16 BMI result Body Mass Index 24.2 Tobacco/Smoking Status: Tobacco use Status Tobacco use date assessed 09/09/23 09/09/23 09:18 Patient Tobacco Use Status Never used Tobacco 09/09/23 09:18 PHQ-9: PHQ-9 Score PHQ-9: Total score 8 09/09/23 10:03 Depression Screening Interpretation: Positive Depression Screening Follow-up: Existing condition and In treatment Thrive Assessment: Date of Thrive Assessment Date Thrive assessed 09/09/23 09/09/23 09:30 Const Other: General: Well developed, well nourished, in no acute distress. Appears stated age. Head: Normocephalic, atraumatic. Eyes: Pupils are equal, round and reactive to light and accommodation. Conjunctivae are clear. Vision grossly normal. Amblyopia affecting the right eye Ears: TMs clear AU, EACS WNL Nose: Patent, without discharge. Mouth: There are no ulcers or lesions noted. No inflammation, no post nasal drip, no plaques nor exudates. Tonsils grade 3 +, no exudate, uvula midline Neck: Supple,no thyromegaly. Shotty mobile anterior cervical adenopathy bilat Lungs: Clear to auscultation bilaterally. No rales, rhonchi or wheeze noted. Good air flow in all zhang. Heart: Regular rate and rhythm. No click, rubs or gallops are noted. Soft systolic murmur heard throughout 08/10 Abdomen: Bowel sounds present in all quadrants. The abdomen is soft, nontender, with no masses or organomegaly noted. No hernias are noted. Musculoskeletal: Joints are nontender, without swelling, redness, or effusions. Range of motion is observed to be normal. Pulses: Peripheral pulses are equal and palpable bilaterally. Extremities: No clubbing, cyanosis nor edema is noted. Neurologic: Gait and station normal. Cranial Nerves 2-12 intact. Motor strength grossly symmetrical and intact. No sensory loss. Balance normal. Skin: No rashes, ulcers, or lesions noted. Turgor is good. Skin color is good. Hair without abnormalities. Psych: Normal eye contact, affect and mood appropriate, and normal interactions. Patient is alert and appropriate to context. Extremities: No clubbing, cyanosis or edema. Office Procedures Flu Questionnaire Does the patient have a severe egg allergy?: No Does the patient have severe life threatening allergies?: No Does the patient have a fever or illness today?: No Has the patient ever had Guillain-[place] Syndrome?: No Has the patient ever had any past reaction to a flu shot?: No Immunizations flu vacc [id number] 6mos up(PF) 60 mcg(15 mcgx4)/0.5 mL IM syringe Performing Provider: ZHAO Mata Performing Location: [facility] Administered by: KAILEY Candelaria on 09/09/23 10:05 Dose Route Admin Location Dispensed Lot Number Expiration Date NDC Wool Hat Flanger 0.5 mL IM Left Deltoid 0.5 mL [id number] 02/02/24 [id number] Zarfo VIS Given Date VIS Provided VIS Publication Date 09/09/23 Single Vaccine 21 Eligibility Eligibility Date Funding Source Not [facility] Eligible 09/09/23 Private Assessment and Plan Assessment & Plan (1) TMJ dysfunction: Comment: Benefited from physical therapy in the past. Refer to ENT Code(s): M26.609 - Unspecified temporomandibular joint disorder, unspecified side (2) Screening for cervical cancer: Code(s): Z12.4 - Encounter for screening for malignant neoplasm of cervix Plan: refer to FOREST SCIENCE PROFESSOR (3) Dysmenorrhea: Code(s): N94.6 - Dysmenorrhea, unspecified Plan: Start OCP. (4) Heart murmur: Comment: echo ordered today Code(s): R01.1 - Cardiac murmur, unspecified (5) Onychomycosis: Code(s): B35.1 - Tinea unguium Plan: topical antifungal RX vinegar and h20 soaks made aware this is a long process to cure (6) Tonsillar enlargement: Code(s): J35.1 - Hypertrophy of tonsils Plan: will have ENT eval this when she goes for TMJ Orders: Orders CA echo transthoracic complete Today R01.1 - Cardiac murmur, unspecified Influenza [id number] Immunization Today Z23 - Encounter for immunization Referrals MENTAL HEALTH CLINICIAN Referral N94.6 - Dysmenorrhea, unspecified, Z12.4 - Encounter for screening for malignant neoplasm of cervix Ear/Nose/Throat Referral J35.1 - Hypertrophy of tonsils, M26.609 - Unspecified temporomandibular joint disorder, unspecified side Medications: New norethindrone ac-eth estradiol 1-20 mg-mcg () 1 tab PO DAILY 63 tabs 2RF clotrimazole 1% (Lotrimin AF (clotrimazole)) apply to toe nails until healed 1 appl topical BID 45 grams 2RF 4 weeks Coding Level of Care Code Est Pt Prev Care 18-39y(55621) Diagnoses TMJ dysfunction M26.609 Screening for cervical cancer Z12.4 Dysmenorrhea N94.6 Heart murmur R01.1 Onychomycosis B35.1 Tonsillar enlargement J35.1 Additional Codes SEBASTIEN-7 Assessment Billing - SEBASTIEN-7 Assessment Tool: SEBASTIEN-7 Assessment 21358 ([id number])
== END 2023-09-09 10:04 | disposition home or self-care (01) ==
PROVIDERS: Visit Provider Nurse Practitioner Family
DX: Z00.00 Encounter for general adult medical examination without abnormal findings (principal); M26.609 Unspecified temporomandibular joint disorder, unspecified side; N94.6 Dysmenorrhea, unspecified; Z23 Encounter for immunization; R01.1 Cardiac murmur, unspecified; B35.1 Tinea unguium; J35.1 Hypertrophy of tonsils
CPT/HCPCS: 90471; 90686; 99395

== ENCOUNTER → 2023-10-15 08:58 | Outpatient (REF) | payer OTHER, SELFPAY ==
--- NOTE | 2023-10-15 09:00 | CA_ITS ---
Transthoracic Echocardiogram Patient (Last, First, Middle): Halle Rg, Gender: Female Date of : 2000 Age: 23 Procedure Date: 10/15/2023 Procedure Type: Transthoracic Echocardiogram Location: OP Height: 175.26 cm Weight: 72.58 kg BSA: 1.88 m2 Heart Rate: 67 bpm BP: 95 / 65 mmHg Compensation/Benefits Specialist: ANJEL Referring MD: Jia Lane [facility] [place] Marker: Craig Matthews MD Symptoms: R01.1 - Cardiac murmur, unspecified Study Quality: Fair ECG Rhythm: Sinus Conclusions: - Normal study Findings Left Ventricle Normal left ventricular size, thickness, and systolic function. The visually estimated ejection fraction is between 60-65%. Diastolic function is normal for age. Peak GLS is -19.5%, within normal limits. Right Ventricle Normal right ventricular cavity size and systolic function. Atria Both atria are normal in size. There is a mobile atrial septum noted. There is no evidence of interatrial shunt. Aortic Valve Normal aortic valve structure and function. There is no aortic valve stenosis. There is no aortic valve regurgitation. Mitral Valve Normal mitral valve structure and function. There is trace mitral valve regurgitation. There is no mitral valve stenosis. Pulmonic Valve The pulmonic valve is likely normal. Tricuspid Valve Normal tricuspid valve structure. There is trace tricuspid valve regurgitation. The right ventricular systolic pressure is normal. The right ventricular systolic pressure is 21 mmHg. Normal right atrial pressure. There is no evidence of pulmonary hypertension. Great Vessels All visible segments of the aorta are normal in size. The visualized portions of the pulmonary artery and branches are normal. Venous The inferior vena cava is normal in size and collapses greater than 50% with inspiration. Pericardium/Pleural There is no evidence of pericardial effusion. Prior Study Comparison No prior study available for comparison. Measurements 2D Linear Measurements IVSd: 0.58 0.6-0.9/0.6-1.0 cm LVIDd: 4.40 3.9-5.3/4.2-5.9 cm LVIDd Index: 2.34 2.4-3.2/2.2-3.1 cm/m2 LVIDs: 2.66 2.0-3.6 cm LVPWd: 0.69 0.7-1.1 cm LA Diam: 2.70 2.7-3.8/3.0-4.0 cm LAIDs Index: 1.44 1.5-2.3 cm/m2 LV Mass: 100.58 67-162/88-224 g LV Mass Index: 53.50 43-95/49-115 g/m2 LVOT Diam: 1.80 3.0+(-)1.3 cm 2D Systolic Function EF 4C: 61.10 >55% EF 2C: 65.50 >55% EF BiP: 64.20 >55% Mitral Valve MV Pk E: 0.99 MV PK A: 0.65 MV Decel Time: 227.00 E/A: 1.50 E'Lateral: 16.80 E'Medial: 12.50 E/E' Med: 7.90 E/E' Lat: 5.90 PHT: 67.00 MVA PHT: 3.28 Decel Gilchrist: 4.35 Aortic Valve AoV Pk Mauricio: 1.18 AoV Mn Mauricio: 0.87 AoV VTI: 0.28 AoV Pk Grad: 6.00 Aov Mn Grad: 3.00 DUANE Cont.VTI: 1.84 LVOT LVOT Pk Mauricio: 0.93 LVOT Mn Mauricio: 0.66 LVOT VTI: 0.20 LVOT Pk Grad: 3.00 LVOT Mn Grad: 2.00 LVOT Diam: 1.80 LVOT Area: 2.54 Diastolic Function MV Pk E: 0.99 MV Pk A: 0.65 E/A: 1.50 E'Medial: 12.50 E/E' Med: 7.90 E' Laterial: 16.80 E/E' Lat: 5.90 Right Ventricle TAPSE (mm): 23.20 TVS' Mauricio: 12.60 Tricuspid Valve TR Pk Mauricio: 2.15 TR Pk Grad: 18.00 RA Press: 3.00 RVSP: 21.00 Great Vessels Aorta Sinus of Valsalva: 3.00 2.0-3.5 cm Ao Asc: 2.80 2.1-3.4 cm Pulmonary Valve PV Pk Mauricio: 0.77 Peak PV Grad: 2.00 Updated in Other Vendor System with Status of Final Craig Matthews MD electronically signed on 10/16/2023 3:42:39 PM with status of Final
== END ==
LOC: HO.CARD 08:58
PROVIDERS: Visit Provider Nurse Practitioner Family
DX: R01.1 Cardiac murmur, unspecified (principal)
CPT/HCPCS: 93306; 93356

== ENCOUNTER → 2023-10-15 09:00 | Outpatient (BNV) | payer OTHER, SELFPAY | PROVIDERS: Visit Provider Internal Medicine Cardiovascular Disease | DX: R01.1 Cardiac murmur, unspecified (principal) | CPT/HCPCS: 93306; 93356 ==

== ENCOUNTER 2023-10-24 13:54 | Outpatient (AMB) | payer OTHER, SELFPAY ==
--- NOTE | 2023-10-24 09:22 | MHC.PC.OV ---
Intake Visit Reasons: follow up echo results Intake Note: Patient is ready for telehealth for echo results Check Totaler Required: No Accompanied by: Self / Same As Patient Allergies No Known Allergies Allergy (Verified 10/24/23 13:53) Tobacco use date assessed: 09/09/23 HPI HPI Comments History of Present Illness Details 23-year-old female with major depressive disorder, chronic abdominal pain, GERD, bilateral congenital vfhmbb-uluzwgq-jrgjq reflux, bilat TMJ disorder Status post cholecystectomy Specialists [facility] GI Psychiatry ENT Health maintenance Pap Immunizations Telehealth visit today to discuss her echo findings: Echo 10/2023 ejection fraction is between 60-65%, There is a mobile atrial septum noted. There is trace tricuspid valve regurgitation. [facility] Medical History Bilateral congenital xasvuv-qmxpnkf-lhvix reflux TMJ dysfunction COVID-19 vaccine series completed Anxiety Depression Gastroesophageal reflux disease Surgical History S/P laparoscopic cholecystectomy (01/23/21) [place] teeth removed H/O eye surgery Family History Maternal Grandfather Lymphoma Family/Other Lung cancer Family/Other History of kidney cancer Social History Household Members: Family Household Members Other:: Patient lives with Grandmother Housing: House Are you a primary youth career specialist to a significant other at home: No Do you presently have visiting nurse or other home services: No Alcohol intake: never Comment: medicated in pacu Patient Tobacco Use Status: Never used Tobacco service: No Current occupational status: student Cognitive needs: No Hearing needs: No Vision needs: No Questionnaire Thrive Questionnaire Date Thrive assessed: 09/09/23 SEBASTIEN-7 AMB Questionnaire SEBASTIEN-7 Date SEBASTIEN - 7 assessed: 09/09/23 Source: Developed by Drs. Benjamin Villavicencio, Halley Bridges, Roney Thomas and colleagues, with an educational erika from [employer]. Physical exam (Primary Care) Tobacco/Smoking Status: Tobacco use Status Tobacco use date assessed 09/09/23 10/24/23 09:22 Patient Tobacco Use Status Never used Tobacco 10/24/23 09:22 Thrive Assessment: Date of Thrive Assessment Date Thrive assessed 09/09/23 10/24/23 09:22 Telehealth Telehealth Location of provider rendering services: practice address Location of patient: address on file Patient Identification confirmed using: Name, : Yes Telehealth method: voice only Patient verbally consented to treatment: Yes Patient verbally consented to billing insurance company: Yes Patient informed of any privacy concerns related to visit: Yes Minutes spent on Phone/Video with Pt.: 7 Assessment and Plan Assessment & Plan (1) Heart murmur: Comment: Echo 10/2023 ejection fraction is between 60-65%, There is a mobile atrial septum noted. There is trace tricuspid valve regurgitation. Bubble study ordered. Will f/u once results are back Code(s): R01.1 - Cardiac murmur, unspecified (2) Tricuspid valve regurgitation: Comment: trace noted on echo 10/2023 Code(s): I07.1 - Rheumatic tricuspid insufficiency Qualifiers: Cardiac valve disease etiology: nonrheumatic Qualified Code(s): I36.1 - Nonrheumatic tricuspid (valve) insufficiency Orders: Orders CA echo limited Today I07.1 - Rheumatic tricuspid insufficiency, R01.1 - Cardiac murmur, unspecified Coding Level of Care Code Tele Est Pt Level 1 (18936) Diagnoses Heart murmur R01.1 Nonrheumatic tricuspid valve regurgitation I36.1 Cardiac valve disease etiology: nonrheumatic
== END 2023-10-24 14:12 | disposition home or self-care (01) ==
LOC: HO.HMGFM 13:55
PROVIDERS: PCP Nurse Practitioner Family; Visit Provider Nurse Practitioner Family
DX: R01.1 Cardiac murmur, unspecified (principal); I36.1 Nonrheumatic tricuspid (valve) insufficiency
CPT/HCPCS: 99211

== ENCOUNTER → 2023-10-30 09:58 | Outpatient (REF) | payer OTHER, SELFPAY ==
--- NOTE | 2023-10-30 10:01 | CA_ITS ---
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 There is no evidence of a patent foramen ovale. Negative bubble study. Prior Study Comparison No significant change compared to prior study dated: 10/15/2023. Updated in Other Vendor System with Status of Final Craig Matthews MD electronically signed on 10/30/2023 2:25:52 PM with status of Final
== END ==
LOC: HO.CARD 09:58
PROVIDERS: Visit Provider Nurse Practitioner Family
DX: I07.1 Rheumatic tricuspid insufficiency (principal); R01.1 Cardiac murmur, unspecified
CPT/HCPCS: 93308

== ENCOUNTER → 2023-10-30 10:01 | Outpatient (BNV) | payer OTHER, SELFPAY | PROVIDERS: Visit Provider Internal Medicine Cardiovascular Disease | DX: I07.1 Rheumatic tricuspid insufficiency (principal) | CPT/HCPCS: 93308 ==

== ENCOUNTER 2023-12-13 10:20 | Outpatient (AMB) | payer OTHER, SELFPAY ==
[2023-12-13 10:25] VITALS: BP 100/60; BMI 24.7
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
== END 2023-12-13 11:01 | disposition home or self-care (01) ==
PROVIDERS: Visit Provider Advanced Practice Midwife
DX: Z30.09 Encounter for other general counseling and advice on contraception (principal)
CPT/HCPCS: 99203

== ENCOUNTER → 2023-12-13 10:20 | Outpatient (BNVA) | payer OTHER, SELFPAY | PROVIDERS: Visit Provider Advanced Practice Midwife | DX: Z30.09 Encounter for other general counseling and advice on contraception (principal) | CPT/HCPCS: 99202 ==

== ENCOUNTER 2024-01-04 06:54 | Emergency (ER) | payer OTHER, SELFPAY ==
[2024-01-04] VITALS (7 sets, daily range): BP systolic 89–105; BP diastolic 49–66; PULSE 53–70; RESP 16–18; TEMP 36.6–36.9; O2SAT 98–99; BMI 24.4
--- NOTE | 2024-01-04 07:35 | ECG_ITS ---
Test Reason : DIZZINESS Blood Pressure : / mmHG Vent. Rate : 058 BPM Atrial Rate : 058 BPM P-R Int : 132 ms QRS Dur : 076 ms QT Int : 446 ms P-R-T Axes : 043 -04 018 degrees QTc Int : 437 ms Sinus bradycardia Otherwise normal ECG When compared with ECG of 14-MAY-2018 11:04, No significant change was found Referred By: Kaya Antoine Electronically Signed By:JULISSA KWONG
--- NOTE | 2024-01-04 07:52 | ED.GENADULT ---
HPI - General Adult General Chief complaint: Nausea/Vomiting/Diarrhea Stated complaint: vomiting Time Seen by Provider: 01/04/24 07:29 Source: patient, family (mom), RN notes reviewed and old records reviewed Mode of arrival: ambulatory Limitations: no limitations History of Present Illness ED Provider: JUVENAL LOYA PA-C HPI narrative: 23 year old female with pmhx significant for tricuspid valve regurgitation, GERD, anxiety, depression presents to the ED today with grandma for evaluation of nausea, vomiting, and dizziness which began acutely at midnight (8 hours ago). States that upon lying down to go to bed, she suddenly felt dizzy which made her feel naseous. Reports 3 episodes of vomiting. Her dizziness if exacerbated by head movements and on lying down. She states she was seen by her PCP for these same symptoms 2 years ago with unremarkable work up. Admits to recent diagnosis of heart murmur found incidentally. Following with PCP for this. Grandmother at bedside does state that the patient has had numerous episodes of nausea/ dizziness similar to this with unremarkable work ups. Reports history of low blood pressure. Currently on menstrual period. Denies fever, chills, vision changes, neck pain, chest pain, sob, syncope, dyspnea, hemoptysis. Admits she was ill with COVID 2 weeks ago. Currently on control patch however used to take OCPs. Onset (ago): hour(s) Location: head Radiation: non-radiation Severity: moderate Relieving factors: immobilization Exacerbating factors: movement Associated symptoms: nausea/vomiting Treatments prior to arrival: none Related Data Home Medications ?Medication ?Instructions ?Recorded ?Confirmed clonidine HCl 0.1 mg tablet 0.1 mg PO BID PRN Sleep 09/09/23 01/05/24 lamotrigine 100 mg tablet 100 mg PO BID 09/09/23 01/05/24 acetaminophen 325 mg tablet 650 mg PO Q6H PRN Pain 01/05/24 01/05/24 (Tylenol) bismuth subsalicylate 525 mg/15 mL 525 mg PO Q30M PRN Stomach Upset 01/05/24 01/05/24 oral suspension norelgestromin 150 mcg-e.estradiol 1 patch transdermal MO@0900 01/05/24 01/05/24 35 mcg/24 hr weekly transderm patch (Xulanradha) Previous Rx's ?Medication ?Instructions ?Recorded ondansetron 4 mg disintegrating 4 mg PO Q8H PRN nausea and 08/07/23 tablet vomiting #10 tabs clotrimazole 1 % topical cream 1 appl topical BID 4 weeks #45 09/09/23 (Lotrimin AF (clotrimazole)) grams meclizine 25 mg tablet 25 mg PO BID PRN dizziness #14 tabs 01/04/24 ondansetron HCl 4 mg tablet 4 mg PO Q8H PRN nausea and 01/06/24 vomiting #10 tabs Allergies Allergy/AdvReac Type Severity Reaction Status Date / Time No Known Allergies Allergy Verified 01/05/24 01:24 Review of Systems Review of Systems: Constitutional: No fever, chills, fatigue, night sweats, weight changes ENT/Mouth: No ear pain, hearing loss, nasal congestion, sinus pain, rhinorrhea, sore throat Eyes: No eye pain, swelling, redness, vision changes, discharge Cardio: No chest pain, palpitations, HERNANDEZ, orthopnea, peripheral edema Pulm: No SOB, cough, sputum, wheezing, dyspnea, hemoptysis GI: No hematemesis, abdominal pain, diarrhea, constipation, hematochezia, melena, +nausea, +vomiting : No irregular bleeding, dysuria, frequency, urgency, hesitancy, hematuria, flank pain, urinary flow changes, urinary incontinence or retention MSK: No back pain, neck pain, joint pain, myalgias Skin: No lesions, rashes Neuro: No weakness, numbness, paresthesias, LOC, headache, +dizziness Psych: No anxiety/panic, depression, SI/HI, AH/VH All other systems reviewed and are negative. [facility] Past Medical History Attestation statement: The following information was validated with the patient. Source: old records reviewed and nursing notes reviewed Medical History Bilateral congenital jymjbk-zeotaoc-ejthh reflux TMJ dysfunction COVID-19 vaccine series completed Anxiety Depression Gastroesophageal reflux disease Surgical History S/P laparoscopic cholecystectomy (01/23/21) [place] teeth removed H/O eye surgery Family History Family History Maternal Grandfather Lymphoma Family/Other Lung cancer Family/Other History of kidney cancer Social History Social History Household Members: Family Household Members Other:: Patient lives with Grandmother Housing: House Are you a primary care support representative to a significant other at home: No Do you presently have visiting nurse or other home services: No Alcohol intake: never Comment: medicated in pacu Patient Tobacco Use Status: Never used Tobacco service: No Cognitive needs: No Hearing needs: No Vision needs: No Physical Exam ED Vital Signs: Vital Signs - 24 hr 01/04/24 06:55 01/04/24 07:50 01/04/24 07:50 Temperature 98 F Pulse Rate 69 53 59 Respiratory Rate 16 Blood Pressure 100/54 L 90/49 L 101/55 L Pulse Oximetry 99 Oxygen Delivery Method Room Air 01/04/24 07:51 01/04/24 10:40 01/04/24 12:32 Temperature 98.5 F Pulse Rate 70 60 64 Respiratory Rate 18 16 Blood Pressure 98/59 L 93/55 L 105/55 L Pulse Oximetry 99 99 Oxygen Delivery Method Room Air Room Air 01/04/24 14:11 Temperature 98.1 F Pulse Rate 54 Respiratory Rate 16 Blood Pressure 89/50 L Pulse Oximetry 99 Oxygen Delivery Method Room Air BMI result Body Mass Index 24.4 vital signs stable Const General: cooperative, healthy appearing, comfortable and no acute distress Orientation/consciousness: patient oriented x3 Limitations: no limitations HENMT Head: Yes normal to inspection, Yes No palpable skull fracture present, Yes normocephalic and Yes atraumatic Mouth: Normal oral and palatal mucosa present Eyes General: appearance normal, both eyes and all related structures Conjunctivae: conjunctivae normal Sclerae: sclerae normal Pupils: Equal, round and reactive pupils present Neck Neck: Yes normal visual inspection, Yes full ROM, Yes no lymphadenopathy, Yes no meningeal signs and Yes no JVD Chest Chest palpation & inspection: normal inspection of the chest and normal palpation of entire chest wall Resp Effort & Inspection: normal respiratory effort and able to speak in complete sentences Auscultation: clear to auscultation bilaterally Cardio Other: + soft systolic heart murmur Jugular venous distension: no JVD Rate: regular rate Rhythm: regular rhythm GI Inspection: Yes normal to inspection Palpation (GI): Soft to palpation and nontender General: Yes no CVA tenderness Back/Spine/Pelvis Back: no CVA tenderness Skin General skin exam: no rashes or lesions noted Neuro General: patient oriented x3, gait normal, tone normal, no meningeal signs and no focal motor deficits Cranial nerves: Yes Equal, round and reactive pupils present Coordination: [id number] test normal, [id number] test normal and Normal rapid alternating movements of the distal upper extremity present (Neuro) Pupils: Normal pupillary reactivity/response: bilateral Extrem General: Yes normal to inspection Course Course Course Narrative: 0916-- CBC with leukocytosis to 14.2 with left shift. This may be due to recent vomiting. H&H stable. No anemia. There is thrombocytosis to 443. EKG showing sinus bradycardia with a rate of 58 beats per minute, QT 446, QTC 437, no acute ischemic changes or ST elevations. EKG compared to EKG performed on 05/14/2018 without significant change. > given PERC score of 1 with OCP use along with thrombocytosis, D-dimer ordered to rule out PE. 0959-- ddimer negative - no VTE. 1040-- repeat BP 93/55. patient continues to report dizziness and nausea without active vomiting, although improved since meclazine and zofran administration. discussed with my attending Dr. Diez who recommends one more liter of fluids and re-evaluation. > On review of chart, patient's blood pressure tends to run soft. SBP anywhere between 100-110. She was evaluated by her OBGYN one week ago when she had BC patch placed. She was noted to have soft blood pressure at that appointment as well and has followed up visit scheduled to continue following BP. orthostatic vitals negative. patient also on clonidine which may be causing her dizziness. 1535-- UA without infection. It does show blood consistent with current menstrual period. > After 3L of fluid, patient reports improvement in symptoms. She is ambulating with steady gait to the bathroom and tolerating PO intake in ED. I did reach out to hospitalist Dr. Hawley regarding. Hospitalist THERESA then came down to the ED to discuss observation/ admisson with patient however patient is declining admission at this time and states she would like to be discharged home which I feel is reasonable. She has follow up appointments scheduled with PCP, psychiatrist, and OBGYN this week. symptoms today consistent with vertigo vs medication SE. I have discussed worrisome signs and symptoms and when to return to the ED. All questions answered at this time. Patient is agreeable with disposition and stable for discharge. Medications Administered Discontinued Medications Generic Name Dose Route Start Last Admin Trade Name Freq PRN Reason Stop Dose Admin Sodium Chloride 1,000 mls @ 999 mls/hr 01/04/24 07:45 01/04/24 09:16 Ns IV 01/04/24 08:45 Infused .Q1H1M FRANCISCO Infusion Sodium Chloride 1,000 mls @ 999 mls/hr 01/04/24 09:15 01/04/24 09:26 Ns IV 01/04/24 10:15 999 mls/hr .Q1H1M FRANCISCO Administration Sodium Chloride 1,000 mls @ 999 mls/hr 01/04/24 11:00 01/04/24 11:10 Ns IV 01/04/24 12:00 999 mls/hr .Q1H1M RFANCISCO Administration Meclizine HCl 25 mg 01/04/24 08:02 01/04/24 09:26 Meclizine Hcl 25 Mg Tablet PO 01/04/24 08:03 25 mg ONCE ONE Administration Ondansetron HCl 4 mg 01/04/24 07:35 01/04/24 08:14 Ondansetron Hcl 4 Mg/2 Ml Vial IVPUSH 01/04/24 07:36 4 mg ONCE ONE Administration Ondansetron HCl 4 mg 01/04/24 10:49 01/04/24 11:10 Ondansetron Odt 4 Mg Tab.Rapdis TRANSLINGU 01/04/24 10:50 4 mg ONCE ONE Administration Medical Decision Making Medical Decision Making MDM Narrative: 23 year old female with pmhx significant for tricuspid valve regurgitation, GERD, anxiety, depression presents to the ED today with grandut for evaluation of nausea, vomiting, and dizziness which began acutely at midnight (8 hours ago). BP soft at 100/54. She has well-appearing. no acute distress. Regular rate and rhythm with soft systolic murmur. Lungs are CTA bilaterally. No JVD or peripheral edema. No calf tenderness or swelling. Ambulating with steady gait. cerebellum intact. exam nonfocal. aox3. abd soft, ND/NT. Differential diagnosis includes anemia, electrolyte abnormality, dehydration, orthostatic hypotension, cardiac murmur, arrhythmia, UTI, IUP. Unlikely ACS, pulmonary embolism, pleural effusion CVA/TIA, cerebellar stroke. Plan for labs, EKG, orthostatic vital signs, IV fluids, antiemetic, re-evaluation. Differential Diagnosis Differential Diagnoses: The differential diagnosis associated with the presentation includes as above. Admission/Observation not indicated. Lab Data MDM Lab Attestation statement: I reviewed the patient's lab results. As above 01/04/24 08:11 01/04/24 08:11 Labs: Lab Results 01/04/24 01/04/24 Range/Units 08:11 13:24 WBC 14.2 H (4.8-10.8) X10*3/uL RBC 4.58 (4.20-5.50) X10*6/uL Hgb 12.9 (12.0-16.0) g/dl Hct 39.8 (37.0-47.0) % MCV 86.9 (80.0-98.0) fL MCH 28.2 (27.0-33.0) pg MCHC 32.4 (31.0-35.0) g/dl RDW 11.9 (11.0-16.0) % Plt Count 443 H D (160-400) X10*3/uL MPV 10.8 (9.4-12.3) fL Immature Gran % (Auto) 0.4 (0.0-0.4) % Neut % (Auto) 87.4 H (45-73) % Lymph % (Auto) 9.7 L (20-40) % [place] % (Auto) 2.3 (2-11) % Eos % (Auto) 0.0 (0-4) % Baso % (Auto) 0.2 (0-2) % Lymph # (Auto) 1.4 (1.2-4.9) X10*3/uL [place] # (Auto) 0.3 (0.1-1.2) X10*3/uL Eos # (Auto) 0.0 (0.0-0.4) X10*3/uL Baso # (Auto) 0.0 (0.0-0.2) X10*3/uL Abs Immat Gran (auto) 0.05 H (0.00-0.03) X10*3/uL Absolute Neuts (auto) 12.4 H (2.0-8.3) x10*3/uL Absolute Nucleated RBC 0.000 (0.0-0.012) X10*3/uL Nucleated RBC % (auto) 0.0 (0.0-0.2) /100WBC PT 12.3 (11.1-13.3) SEC INR 1.0 (0.9-1.1) D-Dimer High Sensitivty < 150 NG/ML Sodium 138 (135-145) mmol/L Potassium 4.5 (3.3-5.1) mmol/L Chloride 104 (96-108) mmol/L Carbon Dioxide 25 (22-29) mmol/L Anion Gap 14 (12-20) BUN 10 (9-16) mg/dL Creatinine 0.76 (0.5-1.4) mg/dL Estim Creat Clear Calc 121.3 Estimated GFR > 60 Random Glucose 117 H (60-115) mg/dL Calcium 9.6 (8.4-10.2) mg/dL Magnesium 2.4 (1.6-2.6) mg/dL Total Bilirubin 0.5 (0.0-1.0) mg/dL AST 17 (5-31) U/L ALT 13 (0-31) U/L Alkaline Phosphatase 94 (39-117) U/L Troponin I High Sens < 2.7 (<3.5-17.0) ng/L Total Protein 7.8 (6.5-8.0) g/dL Albumin 4.2 (3.5-5.0) g/dL Lipase 13 (8-78) U/L Beta HCG, Quant < 2 mIU/mL Urine Color [place] A Urine Appearance Hazy Urine pH 6.5 (5.0-9.0) Ur Specific [place] 1.020 (1.005-1.025) Urine Protein 30 (1+) H (Neg-Trace) mg/dL Urine Glucose (UA) Negative (Negative) mg/dL Urine Ketones 40 (Negative) mg/dL Urine Blood Large (3+) H (Negative) Urine Nitrite Negative (Negative) Ur Leukocyte Esterase Small (1+) H (Negative) Urine RBC >20 H (0-2) /HPF Urine WBC 0-5 (0-5) /HPF Ur Squamous Epith Cells 0-2 (0-2) /HPF Urine Bacteria None Seen (None Seen) Hyaline Casts 0-2 (0-2) /LPF Independent Interpretation I performed an independent interpretation of an: EKG Interpretation: EKG showing sinus bradycardia with a rate of 58 beats per minute, QT 446, QTC 437, no acute ischemic changes or ST elevations. EKG compared to EKG performed on 05/14/2018 without significant change. Independent Historian Clinical information obtained from an independent historian. History obtained from or confirmed by: Other (grandparent) External Record Review External record reviewed: Inpatient record, Office record, Outpatient record, Prior outpatient labs, Prior outpatient radiology, Primary care record and Outside ED record Prescription Management I considered prescription management with: Other (meclizine) Social Determinants Patient?s care significantly limited by Social Determinants of Health including: Other Social Determinant of Health Critical Care Time Critical Care Time Critical Care Time: No Discharge Plan Discharge Clinical Impression: Dizziness, Hypotension Patient Disposition: Home, Self-Care Instructions: Vertigo (ED), Hypotension (ED), Dizziness (ED) Additional Instructions: Your labs today are reassuring. Your blood is negative for clots. Your urine is negative for infection. Your blood pressure was noted to be on the lower side. You were treated with 3L of IV fluids. As discussed, this may be a side affect of your medications. Keep your follow up appointments with OBGYN, PCP, and psychiatrist. They may need to make changes to your current medication regimen. Make sure you are staying hydrated during the day. vitamin b6 has been sent to your pharmacy for nausea. Meclizine has been sent to your pharmacy to help with dizziness. Return with new or worsening symptoms. In the case of an emergency call 911. Prescriptions: New meclizine 25 mg tablet 25 mg PO BID PRN (Reason: dizziness) Qty: 14 0RF No Action acetaminophen [Tylenol] 325 mg Tablet 650 mg PO Q6H PRN (Reason: Pain) bismuth subsalicylate 525 mg/15 mL Suspension 525 mg PO Q30M PRN (Reason: Stomach Upset) Rx Instructions: do not exceed 8 doses in a 24 hour period norelgestromin-ethin.estradiol [Xulane] 150-35 mcg/24 hr patch weekly 1 patch transdermal MO@0900 Rx Instructions: Start the patch in the first five days of the menstrual cycle, where one patch a week, then one week is patch free (off for one week). If discontinuing control may start as usual at the take same time frequent you would start a pill. control pill will be discontinued ondansetron HCl 4 mg tablet 4 mg PO Q8H PRN (Reason: nausea and vomiting) Qty: 10 0RF ondansetron 4 mg tablet,disintegrating 4 mg PO Q8H PRN (Reason: nausea and vomiting) Qty: 10 0RF lamotrigine 100 mg tablet 100 mg PO BID clonidine HCl 0.1 mg tablet 0.1 mg PO BID PRN (Reason: Sleep) clotrimazole [Lotrimin AF (clotrimazole)] 1 % cream 1 appl topical BID 28 Days Qty: 45 2RF Rx Instructions: apply to toe nails until healed Interventions: ED Discharge Assessment Last Done: 01/04/24 15:59 Discharge Date/Time: 01/04/24 16:02 Print Language: Irish
[2024-01-04] MEDS: ondansetron HCL 4 MG/2 ML VIAL IVPUSH (08:14)
[2024-01-04] MEDS: 0.9 % Sodium Chloride 1,000 ML 999 ML IV ×3 (08:15→11:10)
[2024-01-04 08:20] LABS: MANUAL DIFF FLAG NO
[2024-01-04 08:35] LABS: Basophils Percent Auto 0.2 % (0-2); Hematocrit 39.8 % (37.0-47.0); Hemoglobin 12.9 g/dl (12.0-16.0); Imm Gran Abs Auto 0.05 X10*3/uL (0.00-0.03); Imm Gran Pct Auto 0.4 % (0.0-0.4); Lymphocytes Absolute Auto 1.4 X10*3/uL (1.2-4.9); Lymphocytes Percent Auto 9.7 % (20-40); Mean Corpuscular HGB Conc 32.4 g/dl (31.0-35.0); Mean Corpuscular Hemoglobin 28.2 pg (27.0-33.0); Mean Corpuscular Volume 86.9 fL (80.0-98.0); Mean Platelet Volume 10.8 fL (9.4-12.3); Monocytes Absolute Auto 0.3 X10*3/uL (0.1-1.2); Monocytes Percent Auto 2.3 % (2-11); Neutrophils Absolute Auto 12.4 x10*3/uL (2.0-8.3); Neutrophils Percent Auto 87.4 % (45-73); Platelet Count 443 X10*3/uL (160-400); Red Blood Count 4.58 X10*6/uL (4.20-5.50); Red Cell Distribution Width 11.9 % (11.0-16.0); White Blood Count 14.2 X10*3/uL (4.8-10.8)
[2024-01-04 08:38] LABS: Prothrombin Time 12.3 SEC (11.1-13.3)
[2024-01-04 08:41] LABS: Alanine Aminotransferase 13 U/L (0-31); Albumin Level 4.2 g/dL (3.5-5.0); Alkaline Phosphatase 94 U/L (39-117); Anion Gap 14 (12-20); Aspartate Amino Transferase 17 U/L (5-31); Bilirubin Total 0.5 mg/dL (0.0-1.0); Blood Urea Nitrogen 10 mg/dL (9-16); Calcium 9.6 mg/dL (8.4-10.2); Carbon Dioxide 25 mmol/L (22-29); Chloride 104 mmol/L (96-108); Creatinine Clr Calc Pharmacy 121.3; Estimated Glomerular Filt Rate > 60; Glucose Random 117 mg/dL (60-115); Lipase 13 U/L (8-78); Magnesium 2.4 mg/dL (1.6-2.6); Potassium 4.5 mmol/L (3.3-5.1); Sodium 138 mmol/L (135-145); Total Protein 7.8 g/dL (6.5-8.0)
[2024-01-04 08:48] LABS: HCG Quantitative < 2 mIU/mL; Troponin-I High Sensitivity < 2.7 ng/L (<3.5-17.0)
[2024-01-04] MEDS: Meclizine HCl 25 MG TABLET PO (09:26)
[2024-01-04 09:54] LABS: D Dimer High Sensitivity < 150 NG/ML
[2024-01-04] MEDS: Ondansetron ODT 4 MG TAB.RAPDIS TRANSLINGU (11:10)
[2024-01-04 13:47] LABS: Appearance Urine Hazy; Color Urine Orange; PH 6.5 (5.0-9.0)
[2024-01-04 13:48] LABS: Glucose Urine UA Negative (Negative); Leukocyte Esterase Urine Small (1+) (Negative); Nitrite Urine Negative (Negative); UMIC TRIGGER UACC YES; Urine Blood Large (3+) (Negative); Urine Ketones 40 mg/dL (Negative); Urine Protein 30 (1+) mg/dL (Neg-Trace)
[2024-01-04 13:49] LABS: Bacteria Urine None Seen (None Seen); Hyaline Casts Urine 0-2 /LPF (0-2); RBC Urine >20 /HPF (0-2); Squamous Epithelial Cell Urine 0-2 /HPF (0-2); UACC Culture Trigger YES; WBC Urine 0-5 /HPF (0-5)
== END 2024-01-04 16:02 | disposition home or self-care (01) ==
PROVIDERS: Physician Assistant Medical; Emergency Provider Emergency Medicine
DX: R42 Dizziness and giddiness (principal); I95.9 Hypotension, unspecified; R11.2 Nausea with vomiting, unspecified; I07.1 Rheumatic tricuspid insufficiency; Z79.899 Other long term (current) drug therapy
CPT/HCPCS: 36415; 80053; 81001; 83690; 83735; 84484; 84702; 85025; 85379; 85610; 87086; 93005; 96361; 96374; 99284; J2405

== ENCOUNTER → 2024-01-04 07:35 | Outpatient (BNV) | payer OTHER, SELFPAY | PROVIDERS: Emergency Provider Emergency Medicine; Visit Provider Internal Medicine | DX: R00.1 Bradycardia, unspecified (principal) | CPT/HCPCS: 93010 ==

== ENCOUNTER 2024-01-05 01:05 | Observation (INO) | payer OTHER, SELFPAY ==
[2024-01-05] VITALS (9 sets, daily range): BP systolic 93–105; BP diastolic 52–68; PULSE 46–67; RESP 15–18; TEMP 36.4–36.7; O2SAT 95–99; BMI 23.6
--- NOTE | ~2024-01-05 | CT_ITS ---
EXAMINATION: CT HEAD WITHOUT CONTRAST CLINICAL INFORMATION: Vertigo and vomiting COMPARISON: None available. TECHNIQUE: Contiguous axial imaging was performed from the skull base to vertex without intravenous administration of contrast. This CT examination was performed using dose optimization techniques as appropriate, variously including the following: *Automated exposure control *Adjustment of mA and/or kV according to patient size (this includes techniques or standardized protocols for targeted exams where dose is matched to indication/reason for exam; i.e. extremities or head) *Use of iterative reconstruction technique DLP: 596 mGy-cm FINDINGS: There is no evidence for an extra-axial collection. There is no evidence for intra-or extra-axial hemorrhage. The ventricles and extra-axial CSF spaces are appropriate. Blount-white matter differentiation is normal. No mass, mass effect or infarct is seen. No skull fracture. Partial soft tissue opacification of the left frontal sinus. Visualized paranasal sinuses, mastoid air cells and middle ears are otherwise clear. CT/CT head/brain wo IV con Impression: Normal nonenhanced head CT IMPRESSION: Left frontal sinus disease otherwise unremarkable exam.
--- NOTE | ~2024-01-05 | CT_ITS ---
EXAMINATION: CT ABDOMEN AND PELVIS WITHOUT CONTRAST CLINICAL INFORMATION: Vomiting and abdominal pain COMPARISON: Previous CT of the abdomen and pelvis from 2020 TECHNIQUE: Multidetector volumetric imaging was performed from the superior aspect of the liver through the pubic symphysis. Sagittal and coronal reformatted images were obtained on the technologist's workstation. This CT examination was performed using dose optimization techniques as appropriate, variously including the following: *Automated exposure control *Adjustment of mA and/or kV according to patient size (this includes techniques or standardized protocols for targeted exams where dose is matched to indication/reason for exam; i.e. extremities or head) *Use of iterative reconstruction technique DLP: 591 mGy-cm FINDINGS: LUNG BASES: The visualized lung bases are unremarkable. LIVER, GALLBLADDER, AND BILIARY TREE: The liver is normal in size, shape, and attenuation. No focal hepatic lesion or biliary ductal dilatation is present. The gallbladder has been removed. PANCREAS: Unremarkable. SPLEEN: Unremarkable. ADRENAL GLANDS: Unremarkable. KIDNEYS AND URETERS: The kidneys are normal in size, shape, and attenuation. No hydronephrosis, hydroureter, or calculi seen. No perinephric stranding. Stable left pelvic calcification probably representing a calcified phlebolith. BLADDER: Unremarkable. GASTROINTESTINAL TRACT: The small and large bowel are unremarkable. The appendix is unremarkable. ABDOMINAL WALL: No significant hernia is appreciated. LYMPH NODES: Normal. VASCULAR: Unremarkable. PELVIC VISCERA: Trace fluid in the pelvis. Uterus and adnexa are unremarkable. OSSEOUS STRUCTURES: Unremarkable. CT/CT abdomen pelvis wo IV con IMPRESSION: No acute findings. Fleischner guidelines were followed.
[2024-01-05 01:44] LABS: MANUAL DIFF FLAG NO
[2024-01-05 01:48] LABS: Basophils Percent Auto 0.3 % (0-2); Eosinophils Percent Auto 0.3 % (0-4); Hemoglobin 11.8 g/dl (12.0-16.0); Imm Gran Abs Auto 0.04 X10*3/uL (0.00-0.03); Imm Gran Pct Auto 0.3 % (0.0-0.4); Lymphocytes Percent Auto 22.3 % (20-40); Mean Corpuscular HGB Conc 32.8 g/dl (31.0-35.0); Mean Corpuscular Hemoglobin 28.6 pg (27.0-33.0); Mean Corpuscular Volume 87.2 fL (80.0-98.0); Mean Platelet Volume 10.7 fL (9.4-12.3); Monocytes Absolute Auto 0.9 X10*3/uL (0.1-1.2); Monocytes Percent Auto 6.6 % (2-11); Neutrophils Absolute Auto 9.4 x10*3/uL (2.0-8.3); Neutrophils Percent Auto 70.2 % (45-73); Platelet Count 382 X10*3/uL (160-400); Red Blood Count 4.13 X10*6/uL (4.20-5.50); White Blood Count 13.4 X10*3/uL (4.8-10.8)
[2024-01-05 02:06] LABS: Alanine Aminotransferase 13 U/L (0-31); Albumin Level 3.8 g/dL (3.5-5.0); Alkaline Phosphatase 84 U/L (39-117); Anion Gap 12 (12-20); Aspartate Amino Transferase 15 U/L (5-31); Bilirubin Total 0.4 mg/dL (0.0-1.0); Blood Urea Nitrogen 8 mg/dL (9-16); Calcium 9.3 mg/dL (8.4-10.2); Carbon Dioxide 23 mmol/L (22-29); Chloride 108 mmol/L (96-108); Creatinine Clr Calc Pharmacy 113.8; Estimated Glomerular Filt Rate > 60; Glucose Random 110 mg/dL (60-115); Sodium 139 mmol/L (135-145)
--- NOTE | 2024-01-05 07:17 | PC.NURSE ---
pt is alert and oriented, skin pwd, respirations even and unlabored, pt reports that for the last few weeks having lower abd pain-abd soft and non-tender, and bowel sounds in all 4 quadrants, with dizziness- swaying worse with laying down and closing eyes and position changes and vomiting, pain at 6/10 at this time. pt reports being seen in the ed last yesterday but could not control the vomiting at home, bp slightly on the lower side and hr will vary on the monitor from mid 40's-60
--- NOTE | 2024-01-05 08:24 | ED_ITS ---
HPI - General Adult General Chief complaint: Abdominal Pain Stated complaint: n/v low blood pressure Time Seen by Provider: 01/05/24 08:13 Source: patient and family ( mother) Mode of arrival: ambulatory Limitations: no limitations History of Present Illness ED Provider: DR. Diez HPI narrative: 23-year-old female with past medical history significant for tricuspid valve regurgitation, GERD, anxiety, depression presented to the emergency department with dizziness and feeling of room spinning around her with nausea and vomiting, patient's symptoms is worsening by moving her head to any direction, no history of marijuana use or drug use. Patient was seen yesterday in our emergency department and patient declined hospitalization. No blood in the stool, no vomiting blood. Patient declined using any drugs in particular do not smoke marijuana. Declined pain currently having her menstrual cycle. Related Data Home Medications ?Medication ?Instructions ?Recorded ?Confirmed hydroxyzine pamoate 25 mg capsule 25 mg PO TID PRN Anxiety 10/13/20 09/09/23 clonidine HCl 0.1 mg tablet 0.1 mg PO BID 09/09/23 09/09/23 escitalopram oxalate 10 mg tablet 10 mg PO DAILY 09/09/23 09/09/23 lamotrigine 100 mg tablet 100 mg PO BID 09/09/23 09/09/23 Previous Rx's ?Medication ?Instructions ?Recorded omeprazole 20 mg capsule,delayed 20 mg PO DAILY #60 caps 08/07/23 release ondansetron 4 mg disintegrating 4 mg PO Q8H PRN nausea and 08/07/23 tablet vomiting #10 tabs clotrimazole 1 % topical cream 1 appl topical BID 4 weeks #45 09/09/23 (Lotrimin AF (clotrimazole)) grams norelgestromin 150 mcg-e.estradiol 1 patch transdermal Q7D 3 weeks #3 12/13/23 35 mcg/24 hr weekly transderm ea patch (Xulane) meclizine 25 mg tablet 25 mg PO BID PRN dizziness #14 tabs 01/04/24 pyridoxine (vitamin B6) 25 mg 25 mg PO TID PRN nausea and 01/04/24 tablet vomiting #20 tabs Allergies Allergy/AdvReac Type Severity Reaction Status Date / Time No Known Allergies Allergy Verified 01/05/24 01:24 Review of Systems 2 Review of Systems: All other systems are reviewed and are negative Constitutional: Reports as per HPI and Reports no additional constitutional complaints Eyes: Reports as per HPI and Reports no additional eye complaints Reports system reviewed and no additional complaints, except as documented Cardiovascular: Reports as per HPI and Reports no additional cardiovascular complaints Respiratory: Reports as per HPI and Reports no additional respiratory complaints Gastrointestinal: Reports as per HPI and Reports no additional gastrointestinal complaints Genitourinary: Reports no additional female genitourinary complaints Musculoskeletal: Reports no additional musculoskeletal complaints Skin/Breast: Reports system reviewed and no additional complaints, except as docu Psychiatric: Reports no additional psychiatric complaints Endocrine: Reports no additional endocrine complaints Hematologic/Lymphatic: Reports no additional hematologic/lymphatic complaints Allergic/Immunologic: Reports no additional allergic/immunologic complaints Reports system reviewed and no additional complaints, except as documented and Reports Abnormal speech present [facility] Past Medical History Medical History 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 COVID-19 vaccine series completed Anxiety Depression Gastroesophageal reflux disease Surgical History S/P laparoscopic cholecystectomy (01/23/21) [place] teeth removed H/O eye surgery Family History Family History Maternal Grandfather Lymphoma Family/Other Lung cancer Family/Other History of kidney cancer Social History Social History Household Members: Family Household Members Other:: Patient lives with Grandmother Housing: House Are you a primary palliative care coordinator to a significant other at home: No Do you presently have visiting nurse or other home services: No Alcohol intake: never Comment: medicated in pacu Patient Tobacco Use Status: Never used Tobacco Smoked in Last 30 Days: No Use of substances other than those prescribed or required for medical reasons: No Advance Directives: No Advance Directives Information Provided: Yes Do you have a plan to hurt others: No Plan Patient : No service: No Cognitive needs: No Hearing needs: No Vision needs: No Physical Exam ED Vital Signs: Vital Signs - 24 hr 01/05/24 01:23 01/05/24 07:07 01/05/24 08:30 Temperature 97.5 F 98.0 F Pulse Rate 64 59 50 Respiratory Rate 17 18 Blood Pressure 93/55 L 101/60 96/52 L Pulse Oximetry 99 99 Oxygen Delivery Method Room Air Room Air 01/05/24 08:31 01/05/24 08:31 01/05/24 09:23 Temperature Pulse Rate 57 61 46 L Respiratory Rate 18 Blood Pressure 102/63 102/64 102/66 Pulse Oximetry Oxygen Delivery Method 01/05/24 12:58 Temperature 97.6 F Pulse Rate 53 Respiratory Rate 15 Blood Pressure 102/64 Pulse Oximetry 97 Oxygen Delivery Method Room Air BMI result Body Mass Index 23.6 Vital signs have been reviewed and appear to be correct. Blood pressure elevated. Heart rate normal. Respiratory rate normal. Temperature normal. Oxygen saturation normal. Appearance: Alert. Oriented X3. No acute distress. Head: Normal external exam. Normocephalic. Atraumatic. No Baird signs noted. No raccoon eyes noted Eyes: PERRLA. EOMI. Conjunctiva and sclera normal. Eyelids normal. ENT: TM's Normal. Pharynx normal. Uvula midline. Moist mucous membranes. No trismus noted. No drooling noted. No muffled voice noted. Neck: Normal inspection. Neck supple. FROM. No adenopathy. Thyroid Normal. No meningeal signs. No neck mass noted. CVS: Normal heart rate and rhythm. Heart sound normal. No murmurs noted. Pulses normal throughout. Respiratory: No respiratory distress. Painless inspiration. Breath sounds normal. No wheezes/rales/rhonchi noted. Chest nontender. No accessory muscle usage noted or decreased air movement noted. Abdomen: Soft and nontender. Bowel sounds normal in all 4 quadrants. No distention noted. No organomegaly noted. No visible injury noted. Back: No CVA tenderness. Full range of motion noted. Skin: Skin warm and dry. Normal skin color. Normal skin turgor. No rashes/lesions/lacerations noted. Extremities: No lower extremity edema. Extremities exhibit normal range of motion. Extremities nontender. Neuro: Oriented X 3. Cranial nerve exam: II-XII are grossly intact No motor deficit. No sensory deficit. Reflexes normal. Course Reevaluation(s) Reevaluation #1: patient felt better while she has in the ED had a nap the patient woke up feeling dizzy and started to throw up again. CT head showing no acute intra cranial pathology, abdominal CT is unremarkable for acute pathology. Time: 14:23 Medications Administered Discontinued Medications Generic Name Dose Route Start Last Admin Trade Name Freq PRN Reason Stop Dose Admin Sodium Chloride 1,000 mls @ 999 mls/hr 01/05/24 08:18 01/05/24 10:15 Ns IV 01/05/24 09:18 Infused .Q1H1M ONE Infusion Lorazepam 1 mg 01/05/24 08:23 01/05/24 08:38 Lorazepam 2 Mg/Ml Vial IVPUSH 01/05/24 08:24 1 mg ONCE ONE Administration Meclizine HCl 50 mg 01/05/24 08:21 01/05/24 08:37 Meclizine Hcl 25 Mg Tablet PO 01/05/24 08:22 50 mg ONCE ONE Administration Ondansetron HCl 4 mg 01/05/24 08:21 01/05/24 08:37 Ondansetron Hcl 4 Mg/2 Ml Vial IVPUSH 01/05/24 08:22 4 mg ONCE ONE Administration Medical Decision Making Differential Diagnosis Differential Diagnoses: The differential diagnosis associated with the presentation includes ( Peripheral vertigo, central vertigo, intracranial bleed, small-bowel obstruction, acute appendicitis, acute cholecystitis, acute pancreatitis, acute diverticulitis, acute colitis, , electrolyte derangement, severe Anemia.) Admission/Observation Consideration of admission/observation: Escalation of care including admission/observation considered Consult Healthcare Provider Management of the patient was discussed with: Hospitalist ( Dr. Sainz) Lab Data MDM Lab Attestation statement: I reviewed the patient's lab results. 01/05/24 01:39 01/05/24 01:39 Labs: Lab Results 01/05/24 Range/Units 01:39 WBC 13.4 H (4.8-10.8) X10*3/uL RBC 4.13 L (4.20-5.50) X10*6/uL Hgb 11.8 L (12.0-16.0) g/dl Hct 36.0 L (37.0-47.0) % MCV 87.2 (80.0-98.0) fL MCH 28.6 (27.0-33.0) pg MCHC 32.8 (31.0-35.0) g/dl RDW 12.0 (11.0-16.0) % Plt Count 382 (160-400) X10*3/uL MPV 10.7 (9.4-12.3) fL Immature Gran % (Auto) 0.3 (0.0-0.4) % Neut % (Auto) 70.2 (45-73) % Lymph % (Auto) 22.3 (20-40) % [place] % (Auto) 6.6 (2-11) % Eos % (Auto) 0.3 (0-4) % Baso % (Auto) 0.3 (0-2) % Lymph # (Auto) 3.0 (1.2-4.9) X10*3/uL [place] # (Auto) 0.9 (0.1-1.2) X10*3/uL Eos # (Auto) 0.0 (0.0-0.4) X10*3/uL Baso # (Auto) 0.0 (0.0-0.2) X10*3/uL Abs Immat Gran (auto) 0.04 H (0.00-0.03) X10*3/uL Absolute Neuts (auto) 9.4 H (2.0-8.3) x10*3/uL Absolute Nucleated RBC 0.000 (0.0-0.012) X10*3/uL Nucleated RBC % (auto) 0.0 (0.0-0.2) /100WBC Sodium 139 (135-145) mmol/L Potassium 4.0 (3.3-5.1) mmol/L Chloride 108 (96-108) mmol/L Carbon Dioxide 23 (22-29) mmol/L Anion Gap 12 (12-20) BUN 8 L (9-16) mg/dL Creatinine 0.81 (0.5-1.4) mg/dL Estim Creat Clear Calc 113.8 Estimated GFR > 60 Random Glucose 110 (60-115) mg/dL Calcium 9.3 (8.4-10.2) mg/dL Total Bilirubin 0.4 (0.0-1.0) mg/dL AST 15 (5-31) U/L ALT 13 (0-31) U/L Alkaline Phosphatase 84 (39-117) U/L Total Protein 7.0 (6.5-8.0) g/dL Albumin 3.8 (3.5-5.0) g/dL Beta HCG, Quant < 2 mIU/mL Independent Interpretation I performed an independent interpretation of an: CT Scan ( head/abdomen / pelvis CT: No acute pathology.) Radiology Impression Discussion of test interpretation with radiology: I have reviewed the radiologist's reading. Discharge Plan Discharge Clinical Impression: Peripheral vertigo, Intractable vomiting Patient Disposition: Admitted As Inpatient Print Language: Omani
[2024-01-05] MEDS: ondansetron HCL 4 MG/2 ML VIAL IVPUSH ×2 (08:37→14:24)
[2024-01-05] MEDS: 0.9 % Sodium Chloride 1,000 ML 999 ML IV ×2 (08:37→14:30)
[2024-01-05] MEDS: Meclizine HCl 25 MG TABLET 50 MG PO (08:37)
[2024-01-05] MEDS: LORazepam 2 MG/ML VIAL 1 MG IVPUSH ×2 (08:38→14:24)
--- NOTE | 2024-01-05 09:24 | PC.NURSE ---
pt is resting with her eyes shut, pt reports not feeling much better after the medication, still having nausea and still feeling dizzy, pt appears quite pale at this time, sinus alessandro on the monitor 50-40's
--- NOTE | 2024-01-05 11:15 | PC.NURSE ---
pt is currently sleeping respirations even and unlabored
--- NOTE | 2024-01-05 13:23 | PC.NURSE ---
pt just woke up and started to vomit again
[2024-01-05 13:37] LABS: HCG Quantitative < 2 mIU/mL
[2024-01-05] MEDS: Pantoprazole Sodium 40 MG/10 ML VIAL IVPUSH (14:24)
--- NOTE | 2024-01-05 15:23 | PM.IMHP ---
History of Present Illness Date of Service: 01/05/24 Attending physician on admission: Soraya He Chief Complaint: Nausea, vomiting, abdominal pain Pt is a 23-year-old female with a PMH significant for?anxiety and depression who presents to the ED for evaluation of intractable nausea, vomiting, and dizziness. Patient initially presented to the ED yesterday evening. Patient has been experiencing dizziness that she describes as both the room and herself spinning, along with associated nausea and vomiting the past two days. Dizziness worsened with head movements. States she has been experiencing these dizzy spells for the past 2+ years. Episodes usually last a couple of days, occur roughly every 4-6 weeks, and render patient mostly bed-bound for the duration. Is unable to either go to school or work until symptoms subside. Has spoken to PCP about this but sees no specialist and has not undergone any significant workup evaluation. He has not on any home medications for symptoms. Patient presented to the ED yesterday as symptoms were worse than normal. Patient was treated IVF, meclizine, and ondansetron. Patient initially felt somewhat better and declined admission at that time. Went home and reports was feeling better until lays down to go to bed and dizziness, nausea, and vomiting returned. Patient does know she had COVID approximately 2 weeks ago. Has experienced some shortness of breath and my or abdominal pain with episodes. No acute hearing changes. No chest pain/pressure, palpitations. Denies fever or chills. No cough. Currently no headache or acute vision changes. In the ED pt was Labs were significant for leukocytosis 13.4 and H&H 11.8/36.0, otherwise grossly unremarkable. No significant electrolyte abnormalities. Renal function baseline. Hepatic function WNL. test negative. CT?of head negative for acute intracranial pathology, though did show left frontal sinus disease. CT of abdomen and pelvis with no acute findings. Pt was treated with IVF, meclizine 50 mg p.o., ondansetron, lorazepam, and pantoprazole. Pt will be admitted to the hospital under observation for treatment and further evaluation of intractable nausea, vomiting, dizziness. Review of Systems Review of Systems: Nausea, vomiting, dizziness x2 days Minor abdominal pain Shortness of breath Denies acute hearing changes No fever, chills Denies chest pain/pressure, palpitations No headache or acute vision changes [facility] Medical History Bilateral congenital gpgguh-hbrwqqm-dtban reflux TMJ dysfunction COVID-19 vaccine series completed Anxiety Depression Gastroesophageal reflux disease Family History Maternal Grandfather Lymphoma Family/Other Lung cancer Family/Other History of kidney cancer Surgical History S/P laparoscopic cholecystectomy (01/23/21) [place] teeth removed H/O eye surgery Social History Household Members: Family Household Members Other:: Patient lives with Grandmother Housing: House Are you a primary director of health care marketing to a significant other at home: No Do you presently have visiting nurse or other home services: No Alcohol intake: never Comment: medicated in pacu Patient Tobacco Use Status: Never used Tobacco Smoked in Last 30 Days: No Use of substances other than those prescribed or required for medical reasons: No Advance Directives: No Advance Directives Information Provided: Yes Do you have a plan to hurt others: No Plan Patient : No service: No Cognitive needs: No Hearing needs: No Vision needs: No Meds Allergies Allergy/AdvReac Type Severity Reaction Status Date / Time No Known Allergies Allergy Verified 01/05/24 01:24 Active Medications: Current Medications Sodium Chloride (Ns) 1,000 mls @ 999 mls/hr IV .Q1H1M ONE Stop: 01/05/24 15:29 Last Admin: 01/05/24 14:30 Dose: 999 mls/hr Home Medications ?Medication ?Instructions ?Recorded ?Confirmed ?Last Taken ?Type hydroxyzine pamoate 25 mg capsule 25 mg PO TID PRN Anxiety 10/13/20 09/09/23 Unknown History clonidine HCl 0.1 mg tablet 0.1 mg PO BID 09/09/23 09/09/23 Unknown History escitalopram oxalate 10 mg tablet 10 mg PO DAILY 09/09/23 09/09/23 Unknown History lamotrigine 100 mg tablet 100 mg PO BID 09/09/23 09/09/23 Unknown History Physical Exam Vital Signs and Narrative: Vital Signs: Last Vital Signs Temp 97.6 F 01/05/24 12:58 Pulse 63 01/05/24 14:26 Resp 18 01/05/24 14:26 BP 105/68 01/05/24 14:26 Pulse Ox 97 01/05/24 12:58 O2 Del Method Room Air 01/05/24 12:58 BMI result Body Mass Index 23.6 Constitutional: Alert but somnolent, in no acute distress. Mental Status: Oriented to person, place, and time. Eyes: Pupils are equal, round, and reactive to light. Ear, Nose, and Throat: Oropharynx clear, mucous membranes moist. Ears and nose without deformities. Trachea midline. Respiratory: Clear to auscultation bilaterally. No wheezing, rales, or rhonchi. Cardiovascular: S1, S2 regular. No murmurs, rubs, or gallops. Gastrointestinal: Abdomen soft, non-tender, non-distended. Normal bowel sounds. Neurologic: Cranial nerves II-XII are grossly intact bilaterally. No focal neurological deficits. Moves all extremities spontaneously. Skin: Warm, dry. Musculoskeletal: No cyanosis or clubbing. Extremities: No edema. Psychiatric: Normal mood and affect.. Results Labs 01/05/24 01:39 01/05/24 01:39 Labs: Laboratory Results - last 24 hr 01/05/24 01:39 MCV 87.2 MCH 28.6 MCHC 32.8 RDW 12.0 Plt Count 382 MPV 10.7 Immature Gran % (Auto) 0.3 Neut % (Auto) 70.2 Lymph % (Auto) 22.3 [place] % (Auto) 6.6 Eos % (Auto) 0.3 Baso % (Auto) 0.3 Lymph # (Auto) 3.0 [place] # (Auto) 0.9 Eos # (Auto) 0.0 Baso # (Auto) 0.0 Abs Immat Gran (auto) 0.04 H Absolute Neuts (auto) 9.4 H Absolute Nucleated RBC 0.000 Nucleated RBC % (auto) 0.0 Anion Gap 12 Estim Creat Clear Calc 113.8 Estimated GFR > 60 Random Glucose 110 Calcium 9.3 Total Bilirubin 0.4 AST 15 ALT 13 Alkaline Phosphatase 84 Total Protein 7.0 Albumin 3.8 Beta HCG, Quant < 2 Imaging Radiologist's Impressions: Impressions Abdomen/Pelvis CT 01/05/24 12:47 IMPRESSION: No acute findings. Fleischner guidelines were followed. Head CT 01/05/24 12:47 Impression: Normal nonenhanced head CT IMPRESSION: Left frontal sinus disease otherwise unremarkable exam. Assessment and Plan (1) Intractable vomiting: Status: Acute (2) Dizziness: Status: Acute Plan Pt is a 23-year-old female with a PMH significant for?anxiety and depression who presents to the ED for evaluation of intractable nausea, vomiting, and dizziness. Pt will be admitted to the hospital under observation for treatment and further evaluation of intractable nausea, vomiting, dizziness. Intractable nausea, vomiting, dizziness Ongoing x2 days, though pt reports similar episodes nearly monthly x2+ years Unclear etiology: BPPV vs Meniere disease, vestubluar neuritis less likely Will treat with compazine x1 dose, ondansetron prn, and scheduled meclizine 25mg p.o. q6 OT evaluation for possible Karen maneuver Follow BMP for lytes and kidney function Anxiety and depression Continue home mood stabilizers Full Code Attending:?Dr. He DVT [facility] Patient will be admitted to the hospital under observation for treatment and further evaluation of intractable nausea, vomiting, and dizziness. As this is the patient's 2nd presentation to the ED in as many days, she will require hospitalization due to intractable nature of her symptoms Quality Stroke Does the patient have a stroke diagnosis?: No VTE Prior VTE?: No VTE Risk Level:: Medical - moderate - high VTE Device Contraindication: Treatment Not Indicated VTE Drug Contraindication: N/A - Med Ordered
[2024-01-05] MEDS: Prochlorperazine Edisylate 10 MG/2 ML VIAL 5 MG IVPUSH (16:25)
--- NOTE | 2024-01-05 17:14 | PHA.MEDREC ---
Pharmacy Consult ? Medication Reconciliation Pharmacy has completed the medication reconciliation.
[2024-01-05] MEDS: Meclizine HCl 25 MG TABLET PO (18:19)
[2024-01-05] MEDS: Enoxaparin Sodium 40 MG/0.4 ML SYRINGE SUBCUT (18:19)
--- NOTE | 2024-01-05 18:20 | PC.NURSE ---
pt reports feeling a little better, nausea has improved slightly but still feeling dizzy
--- NOTE | 2024-01-05 20:00 | PC.NURSE ---
Assumed care of pt. Pt lying on stretcher, no acute distress at this time. Pending admission bed availability.
[2024-01-06] VITALS: BP 112/75; PULSE 66; RESP 18; TEMP 36.2; O2SAT 99
[2024-01-06] MEDS: 0.9 % Sodium Chloride Flush 3 ML SYRINGE IVFLUSH (01:07)
[2024-01-06] MEDS: Meclizine HCl 25 MG TABLET PO ×3 (01:07→11:46)
[2024-01-06 03:45] VITALS: BP 105/60; PULSE 77; RESP 20; TEMP 36.3; O2SAT 97
[2024-01-06 06:10] LABS: Hematocrit 35.4 % (37.0-47.0); Hemoglobin 11.7 g/dl (12.0-16.0); Mean Corpuscular HGB Conc 33.1 g/dl (31.0-35.0); Mean Corpuscular Hemoglobin 28.7 pg (27.0-33.0); Mean Platelet Volume 11.1 fL (9.4-12.3); Platelet Count 327 X10*3/uL (160-400); Red Blood Count 4.07 X10*6/uL (4.20-5.50); White Blood Count 8.8 X10*3/uL (4.8-10.8)
[2024-01-06 06:29] LABS: Anion Gap 13 (12-20); Blood Urea Nitrogen 5 mg/dL (9-16); Calcium 8.9 mg/dL (8.4-10.2); Carbon Dioxide 23 mmol/L (22-29); Chloride 108 mmol/L (96-108); Creatinine Clr Calc Pharmacy 121.3; Estimated Glomerular Filt Rate > 60; Glucose Random 90 mg/dL (60-115); Potassium 3.6 mmol/L (3.3-5.1); Sodium 140 mmol/L (135-145)
--- NOTE | 2024-01-06 06:43 | PC.NURSE ---
Patient in bathroom, made aware of need for urine specimen. Cup in bathroom. Patient prefers to give sample next time...
[2024-01-06 06:51] VITALS: BP 101/61; PULSE 76; RESP 16; TEMP 36.7; O2SAT 99
--- NOTE | 2024-01-06 10:30 | MHC.CM.PN ---
JAMISON 01/06/24, EMR REVIEWED, PT ADMITTED W/INTRACTABLE N/V & DIZZINESS, CM MET W/PT WHO REPORTS SHE LIVES W/HER GRANDPARENTS IS FULLY INDEP W/CARE, DENIES USE OF DME/SERVICES, PT VERIFIES PCP IS [facility] [place], PT REPORTS HER GRANDMOTHER IS HER HCP, DOES NOT KNOW WHERE SHE DID IT OR IF SHE HAS COPY HOWEVER DECLINES TO COMPLETE A NEW HCP.
[2024-01-06] MEDS: Clotrimazole 1 % Cream 15 GM TUBE 1 APPL TOPICAL (11:46)
[2024-01-06 12:07] LABS: Appearance Urine Cloudy; Color Urine Yellow; Glucose Urine UA Negative (Negative); Leukocyte Esterase Urine Small (1+) (Negative); Nitrite Urine Positive (Negative); UMIC TRIGGER UACC YES; Urine Blood Large (3+) (Negative); Urine Ketones 15 mg/dL (Negative); Urine Protein Negative (Neg-Trace)
[2024-01-06 12:10] LABS: Bacteria Urine 4+ (None Seen); Hyaline Casts Urine 0-2 /LPF (0-2); RBC Urine >20 /HPF (0-2); Squamous Epithelial Cell Urine 0-2 /HPF (0-2); UACC Culture Trigger YES; WBC Urine 21-50 /HPF (0-5)
[2024-01-06 12:18] LABS: Amphetamine Screen Urine Not Detected (Not Detect); Barbiturates, Urine Not Detected (Not Detect); Benzodiazepines Screen Urine Not Detected (Not Detect); Buprenorphine Scr Not Detected (Not Detect); Cannabinoid Screen Urine Not Detected (Not Detect); Cocaine Screen Urine Not Detected (Not Detect); Fentanyl, urine Not Detected (Not Detect); Methadone Screen, Urine Not Detected (Not Detect); Opiate Screen Urine Not Detected (Not Detect); Oxycodone Screen Urine Not Detected (Not Detect); Phencyclidine Screen Urine Not Detected (Not Detect)
[2024-01-06 13:58] LABS: Adenovirus PCR Not Detected (Not Detect.); Bordetella parapertussis PCR Not Detected (Not Detect.); Bordetella pertussis PCR Not Detected (Not Detect.); Chlamydia pneumoniae PCR Not Detected (Not Detect.); Coronavirus 229E PCR Not Detected (Not Detect.); Coronavirus HKU1 PCR Not Detected (Not Detect.); Coronavirus NL63 PCR Not Detected (Not Detect.); Coronavirus OC43 PCR Not Detected (Not Detect.); Human metapneumovirus PCR Not Detected (Not Detect.); Influenza A PCR Not Detected (Not Detect.); Influenza B PCR Not Detected (Not Detect.); Mycoplasma pneumoniae PCR Not Detected (Not Detect.); Parainfluenza 1 PCR Not Detected (Not Detect.); Parainfluenza 2 PCR Not Detected (Not Detect.); Parainfluenza 3 PCR Not Detected (Not Detect.); Parainfluenza 4 PCR Not Detected (Not Detect.); RSV PCR Not Detected (Not Detect.); Rhino/Enterovirus PCR Not Detected (Not Detect.)
[2024-01-06 14:02] LABS: SARS-CoV-2 PCR Detected (Not Detect.)
--- NOTE | 2024-01-06 15:17 | P.DS_ITS ---
DS: Providers Provider Date of Service: 01/06/24 Date of admission: 01/05/24 16:02 Date of discharge: 01/06/24 Primary care physician: Unknown Physician Attending physician on discharge: Soraya He Discharging clinician: Soraya He DS: Diagnosis Discharge Diagnosis (1) Intractable vomiting: Status: Acute (2) Dizziness: Status: Acute DS: Summary Hospital Course Hospital Course: 23-year-old female with a PMH significant for?anxiety and depression who presents to the ED for evaluation of intractable nausea, vomiting, and dizziness. Patient initially presented to the ED yesterday evening. Patient has been experiencing dizziness that she describes as both the room and herself spinning, along with associated nausea and vomiting the past two days. Dizziness worsened with head movements. States she has been experiencing these dizzy spells for the past 2+ years. Episodes usually last a couple of days, occur roughly every 4-6 weeks, and render patient mostly bed-bound for the duration. Is unable to either go to school or work until symptoms subside. Has spoken to PCP about this but sees no specialist and has not undergone any signi ficant workup evaluation. He has not on any home medications for symptoms. Patient presented to the ED yesterday as symptoms were worse than normal. Patient was treated IVF, meclizine, and ondansetron. Patient initially felt somewhat better and declined admission at that time. Went home and reports was feeling better until lays down to go to bed and dizziness, nausea, and vomiting returned. Patient does know she had COVID approximately 2 weeks ago. Has experienced some shortness of breath and my or abdominal pain with episodes. No acute hearing changes. No chest pain/pressure, palpitations. Denies fever or chills. No cough. Currently no headache or acute vision changes. In the ED pt was Labs were significant for leukocytosis 13.4 and H&H 11.8/36.0, otherwise grossly unremarkable. No significant electrolyte abnormalities. Renal function baseline. Hepatic function WNL. test negative. CT?of head negative for acute intracranial pathology, though did show left frontal sinus disease. CT of abdomen and pelvis with no acute findings. Pt was treated with IVF, meclizine 50 mg p.o., ondansetron, lorazepam, and pantoprazole. Pt will be admitted to the hospital under observation for treatment and further evaluation of intractable nausea, vomiting, dizziness. Hospital course: Patient came with intractable nausea vomiting, UR I would like symptoms, she also had some dizziness: Patient has background vertigo symptoms from 2-3 years-possible BPPV . started on meclizine, also hydration, her COVID testing positive for SARS 2 (COVID) , CT head and CT abdomen negative-which might also be contributed to above symptoms. Patient also seen by PT and [facility] for bppv done -patient's symptoms seems to be improved significantly. Patient will be going home with her meclizine, also Zofran ordered p.r.n.. Patient was strongly advised for hydration, also advise self isolation for 7 days as possible. Follow-up with PCP outpatient. Above management discussed with the patient detail length she understand and in agreement with the above plan, time spent 40 min. Time Attestation Total time managing care of this patient today: 40 mintues. Discharge Coordination Time (in mins): 40 min Quality: Safe Use of Opioids Does Pt have an Active Cancer Diagnosis on the Problem List?: No Quality: Stroke Does the patient have a stroke diagnosis?: No Physical Exam Vital Signs: Vital Signs: Last Vital Signs Temp 98.1 F 01/06/24 06:51 Pulse 76 01/06/24 06:51 Resp 16 01/06/24 06:51 BP 101/61 01/06/24 06:51 Pulse Ox 99 01/06/24 06:51 O2 Del Method Room Air 01/06/24 06:51 BMI result Body Mass Index 23.6 Appearance: Alert.? Oriented X3.? cvs: rrr, [id number] , no murmur res: clear to auscultation ,no rhonchii or wheezing abd: no rebound or guarding ,nt, bs present. ext pulses present , no cyanosis . neuro: axo3 , nonfocal. DS: Data Data Completed and Pending Labs on day of discharge: Laboratory Results - last 24 hr 01/05/24 01/06/24 01/06/24 16:32 05:34 11:50 WBC 8.8 RBC 4.07 L Hgb 11.7 L Hct 35.4 L MCV 87.0 MCH 28.7 MCHC 33.1 RDW 12.0 Plt Count 327 MPV 11.1 Absolute Nucleated RBC 0.000 Nucleated RBC % (auto) 0.0 Sodium 140 Potassium 3.6 Chloride 108 Carbon Dioxide 23 Anion Gap 13 BUN 5 L Creatinine 0.76 Estim Creat Clear Calc 121.3 Estimated GFR > 60 Random Glucose 90 Calcium 8.9 Urine Color Yellow Urine Appearance Cloudy Urine pH 6.0 Ur Specific Shushan 1.010 Urine Protein Negative Urine Glucose (UA) Negative Urine Ketones 15 Urine Blood Large (3+) H Urine Nitrite Positive H Ur Leukocyte Esterase Small (1+) H Urine RBC >20 H Urine WBC 21-50 H Ur Squamous Epith Cells 0-2 Urine Bacteria 4+ Hyaline Casts 0-2 Urine Opiates Screen Not Detected Ur Buprenorphine Scrn Not Detected Ur Oxycodone Screen Not Detected Urine Methadone Screen Not Detected Urine Fentanyl Screen Not Detected Ur Barbiturates Screen Not Detected Ur Phencyclidine Scrn Not Detected Ur Amphetamines Screen Not Detected U Benzodiazepines Scrn Not Detected Urine Cocaine Screen Not Detected U Marijuana (THC) Screen Not Detected Respiratory Panel Dobbs See Note Adenovirus (Rapid PCR) Not Detected B.pert (TEM-PCR) Not Detected B.parapertussis DNA PCR Not Detected C. pneumoniae DNA (PCR) Not Detected Coronavirus OC43 (PCR) Not Detected Coronavirus HKU1 (PCR) Not Detected Coronavirus 229E (PCR) Not Detected Coronavirus NL63 (PCR) Not Detected Human Metapneumovir PCR Not Detected Influenza A (RT-PCR) Not Detected Influenza B (RT-PCR) Not Detected M. pneumoniae (PCR) Not Detected Parainfluenza 1 (PCR) Not Detected Parainfluenza 2 (PCR) Not Detected Parainfluenza 3 (PCR) Not Detected Parainfluenza 4 (PCR) Not Detected RSV (PCR) Not Detected Entero/Rhino (PCR) Not Detected SARS-CoV-2 RNA (RT-PCR) Detected A Imaging Chest x-ray: Radiologist's impression: ITS Impressions Abdomen/Pelvis CT 01/05/24 12:47 IMPRESSION: No acute findings. Fleischner guidelines were followed. Head CT 01/05/24 12:47 Impression: Normal nonenhanced head CT IMPRESSION: Left frontal sinus disease otherwise unremarkable exam. Discharge Plan Discharge Anticipated Discharge Date/Time: 01/06/24 14:57 Patient Disposition: Home, Self-Care Discharge Diagnosis: possible bppv vs due to covid . Referrals: Physician,Unknown J [Primary Care Provider] - 1 Week Discharge Medications: New ondansetron HCl 4 mg tablet 4 mg PO Q8H PRN (Reason: nausea and vomiting) Qty: 10 0RF Continued acetaminophen [Tylenol] 325 mg Tablet 650 mg PO Q6H PRN (Reason: Pain) bismuth subsalicylate 525 mg/15 mL Suspension 525 mg PO Q30M PRN (Reason: Stomach Upset) Rx Instructions: do not exceed 8 doses in a 24 hour period norelgestromin-ethin.estradiol [Xulane] 150-35 mcg/24 hr patch weekly 1 patch transdermal MO@0900 Rx Instructions: Start the patch in the first five days of the menstrual cycle, where one patch a week, then one week is patch free (off for one week). If discontinuing control may start as usual at the take same time frequent you would start a pill. control pill will be discontinued meclizine 25 mg tablet 25 mg PO BID PRN (Reason: dizziness) Qty: 14 0RF ondansetron 4 mg tablet,disintegrating 4 mg PO Q8H PRN (Reason: nausea and vomiting) Qty: 10 0RF lamotrigine 100 mg tablet 100 mg PO BID clonidine HCl 0.1 mg tablet 0.1 mg PO BID PRN (Reason: Sleep) clotrimazole [Lotrimin AF (clotrimazole)] 1 % cream 1 appl topical BID 28 Days Qty: 45 2RF Rx Instructions: apply to toe nails until healed Discharge Orders: Discharge Order (Routine); Ordered 01/06/24 Ordered By: Soraya He Diet: Advance to usual diet Activity on Discharge: As tolerated Stand Alone Forms: Patient Portal Discharge page Print Language: Omani Care Plan Goals: Patient came with intractable nausea vomiting, UR I would like symptoms, she also had some dizziness: Patient has background vertigo symptoms from 2-3 years-possible BPPV . started on meclizine, also hydration, her COVID testing positive for SARS 2 (COVID) , CT head and CT abdomen negative-which might also be contributed to above symptoms. Patient also seen by PT and duy for bppv done -patient's symptoms seems to be improved significantly. Patient will be going home with her meclizine, also Zofran ordered p.r.n.. Patient was strongly advised for hydration, also advise self isolation for 7 days as possible. Follow-up with PCP outpatient. Health Concerns: As above. Plan of Treatment: As above. Assessment: As above.
--- NOTE | 2024-01-06 16:00 | MHC.CM.PN ---
PT MEDICALLY CLEARED FOR DC HOME SELF CARE, PT WILL ARRANGE TRANSPORT
== END 2024-01-06 16:23 | disposition home or self-care (01) ==
LOC: HO.ED 14:20 → HO.EDOVER 16:13 → HO.S3 01-06 00:15
PROVIDERS: Internal Medicine; Admitting Provider Student in an Organized Health Care Education/Training Program; Emergency Provider Emergency Medicine; Visit Provider Internal Medicine
DX: U07.1 COVID-19 (principal); R11.2 Nausea with vomiting, unspecified; R42 Dizziness and giddiness; D72.829 Elevated white blood cell count, unspecified
CPT/HCPCS: 36415; 70450; 74176; 80048; 80053; 80307; 81001; 84702; 85025; 85027; 87633; 96361; 96372; 96374; 96375; 96376; 97161; 99221; 99285; C9113; J0737; J1650; J2060; J2405

== ENCOUNTER → 2024-01-05 16:02 | Outpatient (BNV) | payer OTHER, SELFPAY | PROVIDERS: Admitting Provider Student in an Organized Health Care Education/Training Program; Emergency Provider Emergency Medicine; Visit Provider Student in an Organized Health Care Education/Training Program | DX: R11.10 Vomiting, unspecified (principal); R42 Dizziness and giddiness | CPT/HCPCS: 99222; 99239 ==

== ENCOUNTER 2024-03-03 15:26 | Outpatient (AMB) | payer OTHER, SELFPAY ==
--- NOTE | 2024-03-03 15:27 | A.OFFVIS_ITS ---
Vital Signs 03/03/24 15:30 BP 100/66 Intake Visit Reasons: BP Check/Patch follow up Cloth Mercerizing Supervisor: Cloth Mercerizing Supervisor Present Allergies No Known Allergies Allergy (Verified 03/03/24 15:29) Medication List - Last Reconciled 03/03/24 by Sofi Tadeo CNM acetaminophen (Tylenol) 650 mg PO Q6H PRN lamotrigine 100 mg PO BID meclizine 25 mg PO BID PRN norelgestromin-ethin.estradiol 150-35 mcg/24 hr (Xulane) 1 patch transdermal MO@0900 ondansetron 4 mg PO Q8H PRN trazodone 50 mg PO BEDTIME PRN Is last menstrual period known: Yes Last menstrual period: 02/18/24 HPI Comments Details: Patient is here today for a follow up on her control. She started Xulane 3 months ago. She was having some breakthrough bleeding in the last month, admi ts she was hospitalized briefly. She denies any other symptoms. She is currently never sexually active. She wishes to continue with the patch. She denies any contraindications to control such as: migraines with aura, history of DVT or pulmonary emboli, high blood pressure, liver disease, thrombolic disorders, Lupus, +SANDEEP, breast cancer, or smoking. 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 COVID-19 vaccine series completed Anxiety Depression Gastroesophageal reflux disease Surgical History S/P laparoscopic cholecystectomy (01/23/21) [place] teeth removed H/O eye surgery Family History Maternal Grandfather Lymphoma Family/Other Lung cancer Family/Other History of kidney cancer Social History Household Members: Family Household Members Other:: Patient lives with Grandmother Housing: House Are you a primary before and after school daycare worker to a significant other at home: No Do you presently have visiting nurse or other home services: No Alcohol intake: never Comment: medicated in pacu Patient Tobacco Use Status: Never used Tobacco service: No Cognitive needs: No Hearing needs: No Vision needs: No Female Reproductive History Menstrual Age of Menarche: 17 Duration of menses: 6-7 days Date of last menstrual period: 02/18/24 control method: patch Review of Systems Const All systems reviewed & are unremarkable except as noted in HPI and below Endo Reports no additional complaints Physical Exam Vital Signs: Last Vital Signs BP 100/66 03/03/24 15:30 Const General: cooperative, healthy appearing and no acute distress Psych Appearance: well kempt Attitude: cooperative Thought process: Normal thought process present Assessment & Plan Assessment & Plan (1) Contraceptive surveillance, unspecified: Code(s): Z30.40 - Encounter for surveillance of contraceptives, unspecified Qualifiers: Contraceptive type: transdermal patch Qualified Code(s): Z30.45 - Encounter for surveillance of transdermal patch hormonal contraceptive device Plan Reviewed the patch use. control hormone use warnings: go to ER if and loss of vision, blindness, severe headache, chest pain or difficulty breathing, severe abdominal pain, or any pain or swelling in an extremity. If breakthrough bleeding persists beyond 3-4 months then to follow up sooner than 6 month medication check appointment. All of her questions and concerns were addressed to the best of my ability and shared decision making. She is agreeable to the plan of care. This note is constructed using voice recognition software. While every effort has been made to ensure accuracy, pipeline systems operator errors may have been included. Medications: New norelgestromin-ethin.estradiol 150-35 mcg/24 hr (Xulane) wear one patch a week, for 3 weeks, then one week is patch free (off for one week). 1 patch transdermal QWEEK 3 weeks 9 ea 2RF Coding Level of Care Code Est Pt Level 3 (49601) Diagnoses Encounter for surveillance of transdermal patch hormonal contraceptive device Z30.45 Contraceptive type: transdermal patch
[2024-03-03 15:30] VITALS: BP 100/66
== END 2024-03-03 15:56 | disposition home or self-care (01) ==
PROVIDERS: Visit Provider Advanced Practice Midwife
DX: Z30.45 Encounter for surveillance of transdermal patch hormonal contraceptive device (principal)
CPT/HCPCS: 99213

== ENCOUNTER → 2024-03-03 15:26 | Outpatient (BNVA) | payer OTHER, SELFPAY | PROVIDERS: Visit Provider Advanced Practice Midwife | DX: Z30.45 Encounter for surveillance of transdermal patch hormonal contraceptive device (principal) | CPT/HCPCS: 99212 ==

== ENCOUNTER 2024-03-17 12:37 | Outpatient (AMB) | payer OTHER, SELFPAY ==
--- NOTE | 2024-03-17 12:58 | AM.OFFWIN_ITS ---
Intake Vital Signs 03/17/24 12:59 Height 5 ft 9 in Weight 163 lb BMI 24.1 BP 90/60 Blood Pressure Location Rt brachial Position Sitting Pulse 77 Pulse Source Pulse Oximeter Temp 98.5 F Temp Source Oral Pulse Oximetry (%) 98 Oxygen Delivery Method Room Air Intake Visit Reasons: EP- 4 days non stop throwing up Intake Note: pt c/o vomiting x 4 days, unable to keep food down Patient Tobacco Use Status: Never used Tobacco Allergies No Known Allergies Allergy (Verified 03/17/24 12:59) Do you need a note to return to daycare/school/sports/work: No HPI EP- 4 days non stop throwing up HPI Details This is a 23 year old female patient who presents to the [place] clinic today with c/o vomiting for the last 4 days. Denies any recent travel or consumption of undercooked or questionable foods. Denies any diarrhea. Denies abdominal pain, fever, or chills. History cholecystectomy with Dr. Box at [facility]. Reports vomiting started Saturday with around 4 episodes of vomiting Saturday and Saturday, 1 episode Saturday, and another 4 episodes today. Has tried an otc antacid without relief. Has taken PO zofran but feels she vomits it up prior to it being effective. Denies any chance of . Has period now. Denies any dizziness. Has been able to tolerate some food and fluids. [facility] Medical History Bilateral congenital uzeemj-uwcnruc-firgh reflux TMJ dysfunction COVID-19 vaccine series completed Anxiety Depression Gastroesophageal reflux disease Surgical History S/P laparoscopic cholecystectomy (01/23/21) [place] teeth removed H/O eye surgery Family History Maternal Grandfather Lymphoma Family/Other Lung cancer Family/Other History of kidney cancer Social History Household Members: Family Household Members Other:: Patient lives with Grandmother Housing: House Are you a primary career and guidance counselor to a significant other at home: No Do you presently have visiting nurse or other home services: No Alcohol intake: never Comment: medicated in pacu Patient Tobacco Use Status: Never used Tobacco service: No Cognitive needs: No Hearing needs: No Vision needs: No Female Reproductive History Menstrual Age of Menarche: 17 Review of Systems Const All systems reviewed & are unremarkable except as noted in HPI and below Physical Exam Vital Signs: Last Vital Signs Temp 98.5 F 03/17/24 12:59 Pulse 77 03/17/24 12:59 BP 88/60 L 03/17/24 12:59 Pulse Ox 98 03/17/24 12:59 Oxygen Delivery Method Room Air 03/17/24 12:59 BMI result Body Mass Index 24.1 Const General: cooperative and no acute distress Nutritional Appearance: average body habitus HEENT Head: Yes normal to inspection Neck Neck: Yes no lymphadenopathy Resp Effort & Inspection: normal respiratory effort Auscultation: clear to auscultation bilaterally Cardio Rate: regular rate Rhythm: regular rhythm GI Inspection: Yes normal to inspection Palpation (GI): Soft to palpation (non-tender, no guarding, no rebound ttp) and No hepatosplenomegaly present Auscultation: Hypoactive bowel sounds present General: Yes bladder normal to palpation and Yes no CVA tenderness Bimanual exam- vagina & uterus: bladder normal to palpation Back/Spine/Pelvis Back: no CVA tenderness Skin General skin exam: no rashes or lesions noted Extrem General: Yes capillary refill normal and Yes no clubbing, cyanosis or edema Psych Appearance: grossly normal Mental Status: mental status grossly normal Speech and movement: Normal speech and movement present Assessment & Plan Assessment & Plan (1) Vomiting alone: Code(s): R11.10 - Vomiting, unspecified Plan: Patient has had multiple episodes of vomiting for the last 4 days. She has been tolerating small amounts of food/fluids. She is not experiencing any weakness or dizziness. Abdominal assessment is normal. I have suggested she try to steadily increase food and fluid intake as tolerated, starting with bland foods. Advised she avoid anything harsh such as citrus, caffeine, spicy at this time. Patient states she has had several episodes of this vomiting over the last year, each of which last several days. She has seen Dr. Box at [facility] and I recommended she f/u with him. I am going to prescribe disintegrating Ondansetron as patient is fearful of vomiting up PO dose. We discussed at length that if she starts to not tolerate PO intake, or if she develops any dizziness, weakness, abdominal pain, fever/chills, she should go to the ED for evaluation and IVF. She and mother present at visit verbalize understanding and agree to plan. Medications: New ondansetron 4 mg PO Q8H PRN 14 tabs 0RF nausea and vomiting R11.10 - Vomiting, unspecified Coding Level of Care Code Est Pt Level 4 (36081) Diagnoses Vomiting alone R11.10
[2024-03-17 12:59] VITALS: BP 90/60; PULSE 77; TEMP 36.9; O2SAT 98; BMI 24.1
== END 2024-03-17 13:57 | disposition home or self-care (01) ==
PROVIDERS: Visit Provider Nurse Practitioner Family
DX: R11.10 Vomiting, unspecified (principal)
CPT/HCPCS: 99214

== ENCOUNTER 2024-05-09 09:48 | Emergency (ER) | payer OTHER, SELFPAY ==
[2024-05-09 09:56] VITALS: BP 111/59; PULSE 70; RESP 18; TEMP 36.6; O2SAT 98; BMI 24.2
[2024-05-09 10:31] LABS: MANUAL DIFF FLAG NO
[2024-05-09 10:33] LABS: Basophils Percent Auto 0.3 % (0-2); Hematocrit 37.4 % (37.0-47.0); Hemoglobin 12.3 g/dl (12.0-16.0); Imm Gran Abs Auto 0.04 X10*3/uL (0.00-0.03); Imm Gran Pct Auto 0.3 % (0.0-0.4); Lymphocytes Absolute Auto 1.3 X10*3/uL (1.2-4.9); Lymphocytes Percent Auto 11.1 % (20-40); Mean Corpuscular HGB Conc 32.9 g/dl (31.0-35.0); Mean Corpuscular Hemoglobin 28.4 pg (27.0-33.0); Mean Corpuscular Volume 86.4 fL (80.0-98.0); Monocytes Absolute Auto 0.4 X10*3/uL (0.1-1.2); Monocytes Percent Auto 3.5 % (2-11); Neutrophils Absolute Auto 9.8 x10*3/uL (2.0-8.3); Neutrophils Percent Auto 84.8 % (45-73); Platelet Count 330 X10*3/uL (160-400); Red Blood Count 4.33 X10*6/uL (4.20-5.50); Red Cell Distribution Width 11.9 % (11.0-16.0); White Blood Count 11.5 X10*3/uL (4.8-10.8)
[2024-05-09 10:54] LABS: Alanine Aminotransferase 11 U/L (0-31); Albumin Level 4.1 g/dL (3.5-5.0); Alkaline Phosphatase 84 U/L (39-117); Anion Gap 13 (12-20); Aspartate Amino Transferase 16 U/L (5-31); Bilirubin Direct 0.2 mg/dL (0.0-0.5); Bilirubin Total 0.4 mg/dL (0.0-1.0); Blood Urea Nitrogen 8 mg/dL (9-16); Calcium 9.3 mg/dL (8.4-10.2); Carbon Dioxide 24 mmol/L (22-29); Chloride 104 mmol/L (96-108); Creatinine Clr Calc Pharmacy 114.2; Estimated Glomerular Filt Rate > 60; Glucose Random 124 mg/dL (60-115); Lipase 10 U/L (8-78); Potassium 4.2 mmol/L (3.3-5.1); Sodium 137 mmol/L (135-145); Total Protein 7.6 g/dL (6.5-8.0)
[2024-05-09 10:57] LABS: Appearance Urine Clear; Color Urine Yellow; Glucose Urine UA Negative (Negative); Leukocyte Esterase Urine Trace (Negative); Nitrite Urine Negative (Negative); PH 7.5 (5.0-9.0); Specific Gravity - Urine >= 1.030 (1.005-1.025); UMIC TRIGGER UACC YES; Urine Blood Negative (Negative); Urine Ketones Trace mg/dL (Negative); Urine Protein 30 (1+) mg/dL (Neg-Trace)
[2024-05-09 11:03] LABS: UPreg QC Valid YES; Urine Pregnancy NEGATIVE (NEGATIVE)
--- NOTE | 2024-05-09 11:05 | ED_ITS ---
HPI - General Adult General Chief complaint: Abdominal Pain Stated complaint: vomiting Time Seen by Provider: 05/09/24 11:05 Source: patient and family (patient's mother) Mode of arrival: ambulatory Limitations: no limitations History of Present Illness ED Provider: Claudia Valenzuela PA-C HPI narrative: Patient is a 24 year old assigned female at with a history of anxiety, depression, tricuspid valve regurgitation, and GERD presenting to the emergency department today with nausea, vomiting, and epigastric pain. Patient states that at 11pm on 05/08/2024 she began having epigastric pain and vomiting. Patient's mother states that this has happened before and when the patient starts vomiting she is unable to stop. Patient denies any marijuana use. Patient states that she has never seen a GI doctor. Patient denies any dizziness, lightheadedness, fever, chills, blurry vision, double vision, loss of vision, chest pain, difficulty breathing, shortness of breath, back pain, night sweats, pain with urination, increased urinary frequency, increased urinary urgency, blood in her urine or stool, syncope or a near syncopal episode, recent trauma or falls, bowel incontinence, bladder incontinence, or any other complaints at this time. Onset (ago): hour(s) Relieving factors: none Exacerbating factors: none Associated symptoms: nausea/vomiting Treatments prior to arrival: none Related Data Home Medications ?Medication ?Instructions ?Recorded ?Confirmed acetaminophen 325 mg tablet 650 mg PO Q6H PRN Pain 01/05/24 03/03/24 (Tylenol) trazodone 50 mg tablet 50 mg PO BEDTIME PRN 03/03/24 03/03/24 lamotrigine 150 mg tablet 150 mg PO DAILY 03/17/24 pyridoxine (vitamin B6) 25 mg 25 mg PO TID PRN nausea/vomiting 03/17/24 tablet (Vitamin B-6) Previous Rx's ?Medication ?Instructions ?Recorded ondansetron 4 mg disintegrating 4 mg PO Q8H PRN nausea and 08/07/23 tablet vomiting #10 tabs meclizine 25 mg tablet 25 mg PO BID PRN dizziness #14 tabs 01/04/24 norelgestromin 150 mcg-e.estradiol 1 patch transdermal QWEEK 3 weeks 03/03/24 35 mcg/24 hr weekly transderm #9 ea patch (Xulane) ondansetron 4 mg disintegrating 4 mg PO Q8H PRN nausea and 03/17/24 tablet vomiting #14 tabs promethazine 12.5 mg rectal 12.5 mg LA Q6H PRN nausea and 05/09/24 suppository vomiting #12 ea Allergies Allergy/AdvReac Type Severity Reaction Status Date / Time No Known Allergies Allergy Verified 05/09/24 09:59 Review of Systems 2 Constitutional: Constitutional: Reports no additional constitutional complaints, Denies chills, Denies fever(s) and Denies night sweats Eyes: Eyes: Reports no additional eye complaints, Denies blurry vision, Denies change in vision, Denies diplopia, Denies eye discharge, Denies loss of vision and Denies eye pain ENT: Denies dizziness Cardiovascular: Cardiovascular: Reports no additional cardiovascular complaints, Denies chest pain, Denies lightheadedness, Denies Loss of Consciousness and Denies dyspnea Respiratory: Respiratory: Reports no additional respiratory complaints and Denies dyspnea Gastrointestinal: Gastrointestinal: Reports no additional gastrointestinal complaints, Reports abdominal pain, Denies melena, Denies hematochezia, Denies change in bowel habits, Denies change in stool character, Reports nausea and Reports vomiting Genitourinary: Genitourinary: Denies hematuria, Denies urinary frequency, Denies dysuria, Denies urinary incontinence, Denies urinary hesitancy and Denies urinary urgency Musculoskeletal: Musculoskeletal: Reports no additional musculoskeletal complaints, Denies numbness and Denies tingling Neurologic: Denies dizziness, Denies loss of vision, Denies numbness and Denies tingling Psychiatric: Psychiatric: Reports no additional psychiatric complaints Endocrine: Endocrine: Reports no additional endocrine complaints Hematologic/Lymphatic: Hematologic/Lymphatic: Reports no additional hematologic/lymphatic complaints Allergic/Immunologic: Allergic/Immunologic: Reports no additional allergic/immunologic complaints PMFSH Past Medical History Attestation statement: The following information was validated with the patient. 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 COVID-19 vaccine series completed Anxiety Depression Gastroesophageal reflux disease Surgical History S/P laparoscopic cholecystectomy (01/23/21) [place] teeth removed H/O eye surgery Family History Family History Maternal Grandfather Lymphoma Family/Other Lung cancer Family/Other History of kidney cancer Social History Social History Household Members: Family Household Members Other:: Patient lives with Grandmother Housing: House Are you a primary pediatric acute care unit nurse to a significant other at home: No Do you presently have visiting nurse or other home services: No Alcohol intake: never Comment: medicated in pacu Patient Tobacco Use Status: Never used Tobacco Advance Directives: No Do you have a plan to hurt others: No Plan service: No Cognitive needs: No Hearing needs: No Vision needs: No Physical Exam ED Vital Signs: Vital Signs - 24 hr 05/09/24 09:56 05/09/24 13:32 Temperature 97.8 F 97.8 F Pulse Rate 70 70 Respiratory Rate 18 18 Blood Pressure 111/59 L 111/59 L Pulse Oximetry 98 98 Oxygen Delivery Method Room Air Room Air BMI result Body Mass Index 24.2 Const General: cooperative, no acute distress, alert and awake Nutritional Appearance: well nourished Orientation/consciousness: patient oriented x3 Limitations: no limitations HENMT Head: Yes normal to inspection and Yes atraumatic Ears: hearing grossly normal bilaterally and external ears normal General nose exam: Normal external nose present, no nasal discharge noted and no epistaxis Face and sinus: Yes normal facial exam, No abrasion and No laceration Mouth: Normal oral and palatal mucosa present, no drooling and no muffled voice Eyes General: appearance normal, both eyes and all related structures Periorbital: periorbital findings normal Eyelids: Yes eyelids normal Conjunctivae: conjunctivae normal Pupils: Equal, round and reactive pupils present EOM: EOMs intact bilaterally Neck Neck: Yes normal visual inspection, Yes full ROM and Yes no lymphadenopathy Chest Chest palpation & inspection: normal inspection of the chest Resp Effort & Inspection: normal respiratory effort and able to speak in complete sentences GI Inspection: Yes normal to inspection Neuro General: patient oriented x3 and moves all extremities Cranial nerves: Yes Equal, round and reactive pupils present Cognition (Neuro): normal cognition Extrem General: Yes normal to inspection, Yes full ROM and Yes capillary refill normal Psych Appearance: grossly normal Mental Status: mental status grossly normal Affect: normal affect Attitude: cooperative Thought process: Normal thought process present Thought content: Normal thought content present Insight: Good insight present (Psych) Medications Administered Discontinued Medications Generic Name Dose Route Start Last Admin Trade Name Lamonte PRN Reason Stop Dose Admin Sodium Chloride 1,000 mls @ 999 mls/hr 05/09/24 11:15 05/09/24 12:21 Ns IV 05/09/24 12:15 Infused .Q1H1M FRANCISCO Infusion Metoclopramide HCl 10 mg 05/09/24 12:55 05/09/24 13:04 Metoclopramide Hcl 10 Mg/2 Ml Vial IVPUSH 05/09/24 12:56 10 mg ONCE ONE Administration Ondansetron HCl 4 mg 05/09/24 11:08 05/09/24 11:19 Ondansetron Hcl 4 Mg/2 Ml Vial IVPUSH 05/09/24 11:09 4 mg ONCE ONE Administration Pantoprazole Sodium 40 mg 05/09/24 11:09 05/09/24 11:19 Pantoprazole Sodium 40 Mg/10 Ml Vial IVPUSH 05/09/24 11:10 40 mg ONCE ONE Administration Medical Decision Making Medical Decision Making MDM Narrative: Patient is a 24 year old assigned female at with a history of anxiety, depression, tricuspid valve regurgitation, and GERD presenting to the emergency department today with nausea, vomiting, and epigastric pain. Patient's physical exam was unremarkable. Patient's blood work was unremarkable. Patient's urine showed no acute process. I explained my physical exam findings as well as all test results to the patient and the patient's mother. I answered all questions asked by the patient and the patient's mother. Patient received IV fluids, Zofran, and Reglan which upon re-evaluation she stated it helped her symptoms significantly. I stressed the importance of the patient taking her medication as directed (either prescribed or as the over the counter packaging recommends). I stressed the importance of the patient following up with her primary care provider and a GI specialist. I stressed the importance of the patient returning to the emergency department immediately if her symptoms were to worsen or if she were to develop any dizziness, shortness of breath, difficulty breathing, chest pain, blurry vision, loss of vision, nausea, vomiting, abdominal pain, fever, chills, back pain, or any other complaints. Patient and the patient's mother verbalized agreement and understanding with this treatment plan and discharge. Differential Diagnosis Differential Diagnoses: The differential diagnosis associated with the presentation includes GERD Nausea Vomiting Cyclic vomiting Anxiety Admission/Observation Consideration of admission/observation: Escalation of care including admission/observation considered Patient would have been admitted to the hospital had her work up had any findings where hospital admission was appropriate and her clinical presentation warranted hospital admission. Lab Data [facility] Lab Attestation statement: I reviewed the patient's lab results. My interpretation of these results are in the [facility] Rationale portion of this note. 05/09/24 10:24 05/09/24 10:24 Labs: Lab Results 05/09/24 05/09/24 Range/Units 10:24 11:28 WBC 11.5 H (4.8-10.8) X10*3/uL RBC 4.33 (4.20-5.50) X10*6/uL Hgb 12.3 (12.0-16.0) g/dl Hct 37.4 (37.0-47.0) % MCV 86.4 (80.0-98.0) fL MCH 28.4 (27.0-33.0) pg MCHC 32.9 (31.0-35.0) g/dl RDW 11.9 (11.0-16.0) % Plt Count 330 (160-400) X10*3/uL MPV 11.0 (9.4-12.3) fL Immature Gran % (Auto) 0.3 (0.0-0.4) % Neut % (Auto) 84.8 H (45-73) % Lymph % (Auto) 11.1 L (20-40) % Blair % (Auto) 3.5 (2-11) % Eos % (Auto) 0.0 (0-4) % Baso % (Auto) 0.3 (0-2) % Lymph # (Auto) 1.3 (1.2-4.9) X10*3/uL Blair # (Auto) 0.4 (0.1-1.2) X10*3/uL Eos # (Auto) 0.0 (0.0-0.4) X10*3/uL Baso # (Auto) 0.0 (0.0-0.2) X10*3/uL Abs Immat Gran (auto) 0.04 H (0.00-0.03) X10*3/uL Absolute Neuts (auto) 9.8 H (2.0-8.3) x10*3/uL Absolute Nucleated RBC 0.000 (0.0-0.012) X10*3/uL Nucleated RBC % (auto) 0.0 (0.0-0.2) /100WBC Sodium 137 (135-145) mmol/L Potassium 4.2 (3.3-5.1) mmol/L Chloride 104 (96-108) mmol/L Carbon Dioxide 24 (22-29) mmol/L Anion Gap 13 (12-20) BUN 8 L (9-16) mg/dL Creatinine 0.80 (0.5-1.4) mg/dL Estim Creat Clear Calc 114.2 Estimated GFR > 60 Random Glucose 124 H (60-115) mg/dL Calcium 9.3 (8.4-10.2) mg/dL Total Bilirubin 0.4 (0.0-1.0) mg/dL Direct Bilirubin 0.2 (0.0-0.5) mg/dL AST 16 (5-31) U/L ALT 11 (0-31) U/L Alkaline Phosphatase 84 (39-117) U/L Total Protein 7.6 (6.5-8.0) g/dL Albumin 4.1 (3.5-5.0) g/dL Lipase 10 (8-78) U/L Urine Color Yellow Urine Appearance Clear Urine pH 7.5 (5.0-9.0) Ur Specific [place] >= 1.030 H (1.005-1.025) Urine Protein 30 (1+) H (Neg-Trace) mg/dL Urine Glucose (UA) Negative (Negative) mg/dL Urine Ketones Trace (Negative) mg/dL Urine Blood Negative (Negative) Urine Nitrite Negative (Negative) Ur Leukocyte Esterase Trace H (Negative) Urine RBC 0-2 (0-2) /HPF Urine WBC 0-5 (0-5) /HPF Ur Squamous Epith Cells 3-5 (0-2) /HPF Urine Bacteria None Seen (None Seen) Hyaline Casts 0-2 (0-2) /LPF Urine Test NEGATIVE (NEGATIVE) Influenza Type A (PCR) NEGATIVE (Negative) Influenza Type B (PCR) NEGATIVE (Negative) RSV RNA Qual (PCR) NEGATIVE (Negative) SARS-CoV-2 RNA (RT-PCR) NEGATIVE (Negative) Independent Historian Clinical information obtained from an independent historian. History obtained from or confirmed by: Parent (patient's mother provided additional history and confirmed the history provided by the patient.) Tests considered The following testing was considered but not selected: I considered obtaining a CT scan of the abdomen/pelvis however, the patient's current clinical presentation and work up did not warrant this. I discussed this with the patient and her mother who verbalized understanding and agreement. Discharge Plan Discharge Clinical Impression: Nausea & vomiting, Abdominal pain Patient Disposition: Home, Self-Care Instructions: Acute Nausea and Vomiting (ED), Abdominal Pain (ED) Additional Instructions: Follow up with your primary care provider. Return to the emergency department immediately if your symptoms worsen or if you develop any dizziness, shortness of breath, difficulty breathing, chest pain, blurry vision, loss of vision, nausea, vomiting, abdominal pain, fever, chills, back pain, or any other complaints. Prescriptions: New promethazine 12.5 mg suppository 12.5 mg LA Q6H PRN (Reason: nausea and vomiting) Qty: 12 0RF No Action acetaminophen [Tylenol] 325 mg Tablet 650 mg PO Q6H PRN (Reason: Pain) meclizine 25 mg tablet 25 mg PO BID PRN (Reason: dizziness) Qty: 14 0RF lamotrigine 150 mg tablet 150 mg PO DAILY pyridoxine (vitamin B6) [Vitamin B-6] 25 mg tablet 25 mg PO TID PRN (Reason: nausea/vomiting) ondansetron 4 mg tablet,disintegrating 4 mg PO Q8H PRN (Reason: nausea and vomiting) Qty: 14 0RF ondansetron 4 mg tablet,disintegrating 4 mg PO Q8H PRN (Reason: nausea and vomiting) Qty: 10 0RF trazodone 50 mg tablet 50 mg PO BEDTIME PRN norelgestromin-ethin.estradiol [Xulane] 150-35 mcg/24 hr patch weekly 1 patch transdermal QWEEK 21 Days Qty: 9 2RF Rx Instructions: wear one patch a week, for 3 weeks, then one week is patch free (off for one week). Referrals: [facility] Gastroenterology Services [Provider Group] (Call to establish and follow up with a GI specialist. ) Jia Lane, T[facility] ACQUISITION SPECIALIST-BC [Primary Care Provider] - Interventions: ED Discharge Assessment Last Done: 05/09/24 13:32 Discharge Date/Time: 05/09/24 13:33 Print Language: Stateless
[2024-05-09] MEDS: ondansetron HCL 4 MG/2 ML VIAL IVPUSH (11:19)
[2024-05-09] MEDS: Pantoprazole Sodium 40 MG/10 ML VIAL IVPUSH (11:19)
[2024-05-09] MEDS: 0.9 % Sodium Chloride 1,000 ML 999 ML IV (11:20)
[2024-05-09 11:36] LABS: Bacteria Urine None Seen (None Seen); Hyaline Casts Urine 0-2 /LPF (0-2); RBC Urine 0-2 /HPF (0-2); WBC Urine 0-5 /HPF (0-5)
[2024-05-09 12:49] LABS: Influenza A PCR NEGATIVE (Negative); Influenza B PCR NEGATIVE (Negative); Resp Syncy Virus RNA Qual PCR NEGATIVE (Negative); SARS COV2 PCR INHOUSE NEGATIVE (Negative)
--- NOTE | 2024-05-09 12:57 | PC.NURSE ---
per THERESA Valenzuela, admin reglan 10mg in 50ml NS
[2024-05-09] MEDS: Metoclopramide HCl 10 MG/2 ML VIAL IVPUSH (13:04)
[2024-05-09 13:32] VITALS: BP 111/59; PULSE 70; RESP 18; TEMP 36.6; O2SAT 98
== END 2024-05-09 13:33 | disposition home or self-care (01) ==
PROVIDERS: Physician Assistant Medical; Emergency Provider Internal Medicine; PCP Nurse Practitioner Family
DX: R11.2 Nausea with vomiting, unspecified (principal); R10.9 Unspecified abdominal pain; Z03.818 Encounter for observation for suspected exposure to other biological agents ruled out; K21.9 Gastro-esophageal reflux disease without esophagitis; Z79.899 Other long term (current) drug therapy
CPT/HCPCS: 0241U; 36415; 80048; 80076; 81001; 81003; 81025; 83690; 85025; 96361; 96374; 96375; 99283; 99284; J2405; J2470; J2765

== ENCOUNTER 2024-05-18 16:02 | Outpatient (AMB) | payer OTHER, SELFPAY ==
--- NOTE | 2024-05-18 16:19 | MHC.PC.OV ---
Intake Visit Reasons: ED Follow up Allergies No Known Allergies Allergy (Verified 05/18/24 16:20) Medication List - Last Reconciled 05/18/[address], [facility]- acetaminophen (Tylenol) 650 mg PO Q6H PRN lamotrigine 150 mg PO DAILY meclizine 25 mg PO BID PRN norelgestromin-ethin.estradiol 150-35 mcg/24 hr (Xulane) 1 patch transdermal QWEEK 3 weeks ondansetron 4 mg PO Q8H PRN promethazine 12.5 mg LA Q6H PRN pyridoxine (vitamin B6) (Vitamin B-6) 25 mg PO TID PRN trazodone 50 mg PO BEDTIME PRN Tobacco use date assessed: 09/09/23 Dental Screening Dental Screen Date: 09/09/23 HPI HPI Comments History of Present Illness Details Telehealth visit today: Emergency room f/u, 05/08/24, [facility] Patient is a 24 year old assigned female at with a history of anxiety, depression, tricuspid valve regurgitation, and GERD presenting to the emergency department with nausea, vomiting, and epigastric pain. Patient's physical exam was unremarkable. Patient's blood work was unremarkable. Patient's urine showed no acute process. I explained my physical exam findings as well as all test results to the patient and the patient's mother. I answered all questions asked by the patient and the patient's mother. Patient received IV fluids, Zofran, and Reglan which upon re-evaluation she stated it helped her symptoms significantly. I stressed the importance of the patient taking her medication as directed (either prescribed or as the over the counter packaging recommends). New promethazine 12.5 mg suppository 12.5 mg LA Q6H PRN (Reason: nausea and vomiting) Qty: 12 0RF Referrals: [facility] [Provider Group] (Call to establish and follow up with a GI specialist. Since this time, denies any n/v/d. Admits this happened 1 month ago and in January 2024. Denies any anxiety, told it could be related to this. Does not correlate sx with her period. Has not had to use the Supps. but does have on hand As of this time eating, drinking, elimination normal. First appt w/ GI 08/19/24 Plan advised to use the promethazine supps immediatley as needed for future sx w a goal of reducing ED visits FU with GI as scheduled FU with me as scheduled for routine visits, sooner PRN This note is constructed using voice recognition software. While every effort has been made to ensure accuracy in life skills trainer, still errors may have been included Sometimes, these errors may affect the content or meaning of the given sentence . Total time spent caring for the patient today was 22minutes. This includes time spent before the visit reviewing the chart, time spent during the visit, and time spent after the visit on documentation [facility] Medical History Bilateral congenital iawtaw-hhfzsqj-jnfom reflux TMJ dysfunction COVID-19 vaccine series completed Anxiety Depression Gastroesophageal reflux disease Surgical History S/P laparoscopic cholecystectomy (01/23/21) [place] teeth removed H/O eye surgery Family History Maternal Grandfather Lymphoma Family/Other Lung cancer Family/Other History of kidney cancer Social History Household Members: Family Household Members Other:: Patient lives with Grandmother Housing: House Are you a primary wild animal caretaker to a significant other at home: No Do you presently have visiting nurse or other home services: No Alcohol intake: never Comment: medicated in pacu Patient Tobacco Use Status: Never used Tobacco service: No Cognitive needs: No Hearing needs: No Vision needs: No Female Reproductive History Menstrual Age of Menarche: 17 Questionnaire Thrive Questionnaire Date Thrive assessed: 01/06/24 SEBASTIEN-7 AMB Questionnaire SEBASTIEN-7 Date SEBASTIEN - 7 assessed: 09/09/23 Source: Developed by Drs. Benjamin Villavicencio, Halley Bridges, Roney Thomas and colleagues, with an educational erika from [employer]. Physical exam (Primary Care) Tobacco/Smoking Status: Tobacco use Status Tobacco use date assessed 09/09/23 03/17/24 12:34 Patient Tobacco Use Status Never used Tobacco 03/17/24 13:00 Thrive Assessment: Date of Thrive Assessment Date Thrive assessed 01/06/24 03/17/24 12:34 Telehealth Telehealth Telehealth Platform: Telephone Location of provider rendering services: practice address Location of patient: address on file Patient Identification confirmed using: Name, : Yes Telehealth method: voice only Patient verbally consented to treatment: Yes Patient verbally consented to billing insurance company: Yes Patient informed of any privacy concerns related to visit: Yes Minutes spent on Phone/Video with Pt.: 15 Coding Level of Care Code Tele Est Pt Level 3 (19692) Complex EM visit Add On G2211 Diagnoses Hospital discharge follow-up Z09 Intractable vomiting R11.10 Gastroesophageal reflux disease without esophagitis K21.9 Esophagitis presence: without esophagitis Generalized abdominal pain R10.84 Abdominal location: generalized Assessment & Plan Assessment & Plan (1) Hospital discharge follow-up: Code(s): Z09 - Encounter for follow-up examination after completed treatment for conditions other than malignant neoplasm Plan: . (2) Intractable vomiting: Code(s): R11.10 - Vomiting, unspecified Category: Medical Plan: . (3) Gastroesophageal reflux disease: Comment: Continue ppi- avoid culprits had declined EGD Has consult with GI in place Code(s): K21.9 - Gastro-esophageal reflux disease without esophagitis Category: Medical Qualifiers: Esophagitis presence: without esophagitis Qualified Code(s): K21.9 - Gastro-esophageal reflux disease without esophagitis Plan: . (4) Abdominal pain: Comment: e s/p nichole-, abdominal pain, depression Likely functional component playing a role however -must be further evaluated. CT abdomen pelvis IV and oral contrast- no findings to account for symptoms in the past Code(s): R10.9 - Unspecified abdominal pain Category: Medical Qualifiers: Abdominal location: generalized Qualified Code(s): R10.84 - Generalized abdominal pain Plan: .
== END 2024-05-18 16:31 | disposition home or self-care (01) ==
LOC: HO.HMCFM 16:02
PROVIDERS: PCP Nurse Practitioner Family; Visit Provider Nurse Practitioner Family
DX: Z09 Encounter for follow-up examination after completed treatment for conditions other than malignant neoplasm (principal); R11.10 Vomiting, unspecified; K21.9 Gastro-esophageal reflux disease without esophagitis; R10.84 Generalized abdominal pain

== ENCOUNTER → 2024-05-18 16:02 | Outpatient (BNVA) | payer OTHER, SELFPAY | PROVIDERS: PCP Nurse Practitioner Family; Visit Provider Nurse Practitioner Family ==

== ENCOUNTER 2024-09-03 15:30 | Outpatient (AMB) | payer OTHER, SELFPAY ==
--- NOTE | 2024-09-03 15:37 | A.OFFVIS_ITS ---
Vital Signs 09/03/24 15:44 Height 5 ft 9 in Weight 163 lb BMI 24.1 BP 100/62 Intake Visit Reasons: 6 month control follow up Cane Flume Feeding Machine Operator: Cane Flume Feeding Machine Operator Present Allergies No Known Allergies Allergy (Verified 09/03/24 15:37) Is last menstrual period known: Yes Last menstrual period: 08/07/24 HPI Comments Details: Patient is here today for a follow up control. Previously on OCPs ordered by her primary care and entered care here to telephone exchange operator to the patch method. She has declined physical exam due to trauma history. She is currently using the Xulane patch and doing well needs a refill. She denies any contraindications to control such as: migraines with aura, history of DVT or pulmonary emboli, high blood pressure, liver disease, thrombolic disorders, Lupus, +SANDEEP, breast cancer, or smoking. [facility] Medical History Bilateral congenital mibdxe-skinost-zvnyy reflux TMJ dysfunction COVID-19 vaccine series completed Anxiety Depression Gastroesophageal reflux disease Surgical History S/P laparoscopic cholecystectomy (01/23/21) [place] teeth removed H/O eye surgery Family History Maternal Grandfather Lymphoma Family/Other Lung cancer Family/Other History of kidney cancer Social History Household Members: Family Household Members Other:: Patient lives with Grandmother Housing: House Are you a primary wound care rn to a significant other at home: No Do you presently have visiting nurse or other home services: No Alcohol intake: never Comment: medicated in pacu Patient Tobacco Use Status: Never used Tobacco service: No Cognitive needs: No Hearing needs: No Vision needs: No Female Reproductive History Menstrual Age of Menarche: 17 Date of last menstrual period: 08/07/24 Review of Systems Const All systems reviewed & are unremarkable except as noted in HPI and below Endo Reports no additional complaints Physical Exam Vital Signs: Last Vital Signs BP 100/62 09/03/24 15:44 BMI result Body Mass Index 24.1 Const General: cooperative, healthy appearing and no acute distress Psych Appearance: well kempt Attitude: cooperative Thought process: Normal thought process present Assessment & Plan Assessment & Plan (1) Contraceptive surveillance: Code(s): Z30.40 - Encounter for surveillance of contraceptives, unspecified Qualifiers: Contraceptive type: transdermal patch Qualified Code(s): Z30.45 - Encounter for surveillance of transdermal patch hormonal contraceptive device Plan Discussed: Continuing with the patch, refills sent in. control hormone use warnings: go to ER if and loss of vision, blindness, severe headache, chest pain or difficulty breathing, severe abdominal pain, or any pain or swelling in an extremity. Schedule annual exam and Pap-patient has history of trauma is unable to complete a pelvic exam in the past, reviewed possibly doing a transabdominal ultrasound if unable to complete at next visit. To be discussed at next visit. The patient expressed understanding and agreement with the plan of care. All of her questions and concerns were addressed to the best of my ability. Send request for medical records for cardiology results. This note is constructed using voice recognition software. While every effort has been made to ensure accuracy, entrepreneurship program director errors may have been included. Medications: Refilled norelgestromin-ethin.estradiol 150-35 mcg/24 hr (Xulane) wear one patch a week, for 3 weeks, then one week is patch free (off for one week). 1 patch transdermal QWEEK 3 weeks 9 ea 2RF Coding Level of Care Code Est Pt Level 3 (91592) Diagnoses Encounter for surveillance of transdermal patch hormonal contraceptive device Z30.45 Contraceptive type: transdermal patch
[2024-09-03 15:44] VITALS: BP 100/62; BMI 24.1
== END 2024-09-03 15:55 | disposition home or self-care (01) ==
PROVIDERS: Visit Provider Advanced Practice Midwife
DX: Z30.45 Encounter for surveillance of transdermal patch hormonal contraceptive device (principal)
CPT/HCPCS: 99213

== ENCOUNTER → 2024-09-03 15:30 | Outpatient (BNVA) | payer OTHER, SELFPAY | PROVIDERS: Visit Provider Advanced Practice Midwife | DX: Z30.45 Encounter for surveillance of transdermal patch hormonal contraceptive device (principal) | CPT/HCPCS: 99212 ==

== ENCOUNTER 2024-11-04 11:55 | Outpatient (AMB) | payer OTHER, SELFPAY ==
--- NOTE | 2024-11-04 11:59 | A.OFFPC_ITS ---
Vital Signs 3 11/04/24 12:11 Height 5 ft 9 in Weight 160 lb 4 oz BMI 23.7 BP 108/72 Blood Pressure Location Rt brachial Position Sitting Respiration 16 Pulse 86 Pulse Source Pulse Oximeter Temp 98.6 F Temp Source Oral Pulse Oximetry (%) 96 Oxygen Delivery Method Room Air Intake Visit Reasons: CPE Intake Note: patient here for CPE [employer] Sales Assistant Required: No Is last menstrual period known: Yes Last menstrual period: 11/04/24 Post menopausal: No Patient : No Allergies No Known Allergies Allergy (Verified 11/04/24 12:23) Medication List - Last Reconciled 11/04/[address], GEOSPATIAL SYSTEMS INTEGRATOR- lamotrigine 150 mg PO DAILY norelgestromin-ethin.estradiol 150-35 mcg/24 hr (Xulane) 1 patch transdermal QWEEK 3 weeks trazodone 50 mg PO BEDTIME PRN Tobacco use date assessed: 11/04/24 Dental Screening Dental Screen Date: 11/04/24 Did you have a dental visit in the last 12 months?: Yes Did you have a dental problem in the last 6 months where you did not have access to dental care?: No Was dental information given to patient?: Patient has dentist HPI HPI Comments 2 History of Present Illness0 Details 24-year-old female with major depressive disorder, chronic abdominal pain, GERD, bilateral congenital pldbsh-tcmmytc-zqoct reflux, bilat TMJ disorder, mild tricuspid regurg, mobile atrial septum noted w/o interarterial shunting (echo and bubble study 10/2023) Status post cholecystectomy Family medical hx: no changes Social: lives w/ Grandparents, sister & cat. Drives. In [employer] Specialists [facility] GI Psychiatry ENT BALANCE TRUING INSPECTOR Health maintenance Pap hx of trauma, unable to complete; managed by BALANCE TRUING INSPECTOR 08/2024 Immunizations Flu and Tdap today Here today for CPE & chronic mgmt Needs letter sent to [facility] client services director that it is ok for her to use Xulane patch Still has some vertigo and dizziness. Recommended Vestibular therapy in the past; referral was not accepted. Interested in update referral. Cont to have chronic GI sx. [facility] GI appt from Aug to January. sx are not as often. Last time Sep 2024. Left sided abd pain; general; nonspecific. Chronic. Wonders about EGD and Colon. R TMJ did not go to ENT, as could not remember what she was being referred for. Palpitations: occasional. Feels SOB when it occurs. Wonders if anxiety is contributing. But unsure. Denies pain in chest. Denies swelling in legs. Echo 10/2023 ejection fraction is between 60-65%, There is a mobile atrial septum noted. There is trace tricuspid valve regurgitation. Optho - wears glasses, next exam on Saturday Skin: No issues Plan: Message sent to BALANCE TRUING INSPECTOR ok to use Xulane Refer to [facility] CORE for vestibular therapy Referral to ENT updated; info provided at time of visit. She should call Check labs to eval palpitations, could consider Holter. ? anxiety. Tdap and flu today. She will be sent lab results on the portal. If any abnormal will set up telehealth to review RTO 1 year CPE sooner PRN An additional 30 minutes was spent addressing the problem(s) noted at todays visit. This includes time spent before the visit reviewing the chart, time spent during the visit, and time spent after the visit on documentation reviewing laboratory results, diagnostic imaging, medications, performing a medically necessary evaluation, counseling on diagnoses, care coordination, ordering appropriate tests, ordering appropriate medications, review of tests performed by other providers, reporting test results with the patient, communication with other healthcare providers. After the visit I was called to the lab by the project executive, the patient syncopized in the lab chair. The laboratory assistant states that she asked for a glass of water took 1 sip and then fainted. She was seated and did not hit her head. I responded immediately she was pale and diaphoretic however she was able to speak. She reports that she did not feel well. An ice pack was placed on the back of her neck. She was sat forward to increase her blood pressure. She was alert and oriented. Her grandmother Dee was asked to come inside from her car to come and sit with her while we continued to monitor her. The patient was given a sip of water per her request and then started to vomit a small amount of bilious fluid. Santino garcia reports that she has severe anxiety and that she has been worried about this appointment since last night. The patient reports that she does not like needles or blood work and that she received her flu and tetanus shot prior to getting the labs and this was just too much for her. She wishes to defer the labs. She was given a sublingual dose of Zofran to help with the nausea and she was laid down in an exam room on a table until she fully recovered and was able to leave accompanied by her Grandmother This took an additional 35 minutes COUNT INCLUDES THE [facility] Medical History Bilateral congenital ajzvpc-tbxkldt-fghsh reflux TMJ dysfunction COVID-19 vaccine series completed Anxiety Depression Gastroesophageal reflux disease Surgical History S/P laparoscopic cholecystectomy (01/23/21) [place] teeth removed H/O eye surgery Family History Maternal Grandfather Lymphoma Family/Other Lung cancer Family/Other History of kidney cancer Sister Anxiety Depression Maternal Grandmother Depression Social History Household Members: Family Household Members Other:: Patient lives with Grandmother Housing: House Are you a primary acute care nursing assistant to a significant other at home: No Do you presently have visiting nurse or other home services: No Alcohol intake: never Comment: medicated in pacu Patient Tobacco Use Status: Never used Tobacco e-Cigarette/Vaping Use: Never Used Second Hand Smoke Exposure: No service: No Current occupational status: unemployed Current occupational exposures/hazards: No Cognitive needs: No Hearing needs: No Vision needs: No Female Reproductive History Menstrual Age of Menarche: 17 Date of last menstrual period: 11/04/24 Questionnaire PHQ-9 Over the last 2 weeks, how often have you been bothered by any of the following problems? 1. Little interest or pleasure in doing things: several days 2. Feeling down, depressed, or hopeless: several days 3. Trouble falling or staying asleep, or sleeping too much: not at all 4. Feeling tired or having little energy: several days 5. Poor appetite or overeating: not at all 6. Feeling bad about yourself - or that you are a failure or have let yourself or your family down: not at all 7. Trouble concentrating on things, such as reading the newspaper or watching television: not at all 8. Moving or speaking so slowly that other people could have noticed. Or the opposite - being so fidgety or restless that you have been moving around a lot more than usual: not at all 9. Thoughts that you would be better off or of hurting yourself in some way: not at all Total score: 3 Depression Screening Interpretation: Negative Depression Screening Done: Yes 89583 - PHQ-9 Billing: Yes Source: Developed by Drs. Benjamin Villavicencio, Halley Bridges, Roney Thomas and colleagues, with an educational erika from [employer]. Thrive Questionnaire Date Thrive assessed: 11/04/24 I am a: Patient What is your living situation today?: I have a steady place to live Within the past 12 months, did the food you bought not last and you didn't have the money to get more?: Sometimes True Within the past 12 months, did you worry whether your food would run out before you got money to buy more?: Never true Do you have trouble paying for medicines?: No Do you have trouble getting transportation to medical appointments?: No Do you have trouble paying your heating and electricity bill?: I choose not to answer this question Do you have trouble taking care of your child, family member or friend?: I choose not to answer this question Do you have trouble with day-to-day activities such as bathing, preparing meals, shopping, managing finances, etc.?: No Are you currently unemployed and looking for a job?: Yes Are you interested in more education?: I choose not to answer this question Please select the resources that you would like help with: None Currently or been in a relationship where the following occur: No concerns reported THRIVE Score: 1 AUDIT C Alcohol Use Questionnaire (AUDIT-C) 1. How often do you have a drink containing alcohol?: Never Total Score: 0 Score Reviewed/Action Taken: Yes SEBASTIEN-7 AMB Questionnaire SEBASTIEN-7 Date SEBASTIEN - 7 assessed: 11/04/24 Feeling nervous, anxious, or on edge: 1 = Several days Not being able to stop or control worryin = Several days Worrying too much about different things: 1 = Several days Trouble relaxin = Several days Being so restless that it is hard to sit still: 0 = Not at all Becoming easily annoyed or irritable: 1 = Several days Feeling afraid as if something awful might happen: 0 = Not at all Total SEBASTIEN-7 score (0-4 normal; 5-9 mild; 10-14 moderate; 15-21 severe): 5 Source: Developed by Drs. Benjamin Villavicencio, Halley Bridges, Roney Thomas and colleagues, with an educational erika from [employer]. SEBASTIEN-7 Assessment Billing SEBASTIEN-7 Assessment Tool: SEBASTIEN-7 Assessment 81937 Review of Systems Const Details: Cardiovascular: - Reports palpitations. - Reports accompanying mild shortness of breath with palpitations. Respiratory: - Denies any chest pain. Gastrointestinal: - Reports less frequent vomiting episodes compared to last year. Neurological: - Reports dizziness persisting since hospitalization for vertigo. Physical exam (Primary Care) Vital Signs: Last Vital Signs Temp 98.6 F 11/04/24 12:11 Pulse 86 11/04/24 12:11 Resp 16 11/04/24 12:11 BP 108/72 11/04/24 12:11 Pulse Ox 96 11/04/24 12:11 Oxygen Delivery Method Room Air 11/04/24 12:11 BMI result Body Mass Index 23.7 Tobacco/Smoking Status: Tobacco use Status Tobacco use date assessed 11/04/24 11/04/24 12:06 Patient Tobacco Use Status Never used Tobacco 11/04/24 12:03 e-Cigarette/Vaping Use Never Used 11/04/24 12:06 PHQ-9: PHQ-9 Score PHQ-9: Total score 3 11/04/24 13:11 Depression Screening Interpretation: Negative Thrive Assessment: Date of Thrive Assessment Date Thrive assessed 11/04/24 11/04/24 12:03 Currently or been in a relationship where the following occur: No concerns reported Const Other: General: Well developed, well nourished, in no acute distress. Appears stated age. Head: Normocephalic, atraumatic. Eyes: Pupils are equal, round and reactive to light and accommodation. Conjunctivae are clear. Vision grossly normal. Amblyopia affecting the right eye Ears: TMs clear AU, EACS WNL Nose: Patent, without discharge. Mouth: There are no ulcers or lesions noted. No inflammation, no post nasal drip, no plaques nor exudates. Tonsils grade 3 +, no exudate, uvula midline Neck: Supple,no thyromegaly. Shotty mobile anterior cervical adenopathy bilat Lungs: Clear to auscultation bilaterally. No rales, rhonchi or wheeze noted. Good air flow in all zhang. Heart: Regular rate and rhythm. No click, rubs or gallops are noted. Soft systolic murmur heard throughout 08/10 Abdomen: Bowel sounds present in all quadrants. The abdomen is soft, nontender, with no masses or organomegaly noted. No hernias are noted. Musculoskeletal: Joints are nontender, without swelling, redness, or effusions. Range of motion is observed to be normal. Pulses: Peripheral pulses are equal and palpable bilaterally. Extremities: No clubbing, cyanosis nor edema is noted. Neurologic: Gait and station normal. Cranial Nerves 2-12 intact. Motor strength grossly symmetrical and intact. No sensory loss. Balance normal. Skin: No rashes, ulcers, or lesions noted. Turgor is good. Skin color is good. Hair without abnormalities. Psych: Normal eye contact, affect and mood appropriate, and normal interactions. Patient is alert and appropriate to context. Extremities: No clubbing, cyanosis or edema. Office Procedures Flu Questionnaire Does the patient have a severe egg allergy?: No Does the patient have severe life threatening allergies?: No Does the patient have a fever or illness today?: No Has the patient ever had Guillain-[place] Syndrome?: No Has the patient ever had any past reaction to a flu shot?: No Office Meds ondansetron 4 mg disintegrating tablet Performing Provider: AMANDA Mata Performing Location: [facility] Family [facility] Administered by: AMANDA Mata on 11/04/24 13:16 2 Dose Route Admin Location Dispensed Lot Number Expiration Date [facility] Senior Media Buyer 4 mg translingual LAB 4 mg 03/05/25 31098-926-73 [facility] Immunizations Fluarix Triv [id number] (PF) 45 mcg (15 mcg x 3)/0.5 mL IM syringe Performing Provider: AMANDA Mata Performing Location: [facility] Family [facility] Administered by: Rodrick Arambula RN on 11/04/24 13:11 2 Dose Route Admin Location Dispensed Lot Number Expiration Date [facility] Senior Media Buyer 0.5 mL IM Left Deltoid 0.5 mL [id number] 02/01/25 [id number] [employer] 2 VIS Given Date VIS Provided VIS Publication Date 11/04/24 Single Vaccine 21 Eligibility Eligibility Date Funding Source Not VFC Eligible 11/04/24 Private Boostrix Tdap 2.5 Lf unit-8 mcg-5 Lf/0.5 mL intramuscular syringe Performing Provider: AMANDA Mata Performing Location: [facility] Family Medicine Administered by: Rodrick Arambula RN on 11/04/24 13:11 2 Dose Route Admin Location Dispensed Lot Number Expiration Date [facility] Senior [employer] Buy[employer] 0.5 mL IM Left Deltoid 0.5 mL [id number] 08/14/26 [id number] [employer] 2 VIS Given Date VIS Provided VIS Publication Date 11/04/24 Single Vaccine 21 Eligibility Eligibility Date Funding Source Not VFC Eligible 11/04/24 Private Coding Level of Care Code Est Pt Level 5 (62581) Est Pt Prev Care 18-39y(01850) Diagnoses Encounter for general adult medical examination with abnormal findings Z00.01 Mild episode of recurrent major depressive disorder F33.0 Active/Remission status: currently active Depression Type: major depressive disorder Major depression episode severity: mild Major depression recurrence: recurrent Gastroesophageal reflux disease without esophagitis K21.9 Esophagitis presence: without esophagitis Heart murmur R01.1 Nonrheumatic tricuspid valve regurgitation I36.1 Cardiac valve disease etiology: nonrheumatic Dizziness R42 Peripheral vertigo of both ears H81.393 Laterality: bilateral Palpitations R00.2 Influenza vaccination administered at current visit Z23 Need for Tdap vaccination Z23 Nausea and vomiting, unspecified vomiting type R11.2 Vomiting type: unspecified CPT Codes PROLONG OUTPT/OFFICE VIS - G2212 syncope Additional Codes SEBASTIEN-7 Assessment Billing - SEBASTIEN-7 Assessment Tool: SEBASTIEN-7 Assessment 84862 ([id number]) PHQ-9 - 60797 - PHQ-9 Billing: Yes ([id number]) Assessment & Plan Assessment & Plan (1) Encounter for general adult medical examination with abnormal findings: Code(s): Z00.01 - Encounter for general adult medical examination with abnormal findings (2) Depression: Code(s): F32.9 - Major depressive disorder, single episode, unspecified Category: Medical Qualifiers: Active/Remission status: currently active Depression Type: major depressive disorder Major depression episode severity: mild Major depression recurrence: recurrent Qualified Code(s): F33.0 - Major depressive disorder, recurrent, mild (3) Gastroesophageal reflux disease: Code(s): K21.9 - Gastro-esophageal reflux disease without esophagitis Category: Medical Qualifiers: Esophagitis presence: without esophagitis Qualified Code(s): K21.9 - Gastro-esophageal reflux disease without esophagitis (4) Heart murmur: Comment: Echo 10/2023 ejection fraction is between 60-65%, There is a mobile atrial septum noted. There is trace tricuspid valve regurgitation. Bubble study 10/2023 WNL Code(s): R01.1 - Cardiac murmur, unspecified Category: Medical (5) Tricuspid valve regurgitation: Comment: trace noted on echo 10/2023 Code(s): I07.1 - Rheumatic tricuspid insufficiency Category: Medical Qualifiers: Cardiac valve disease etiology: nonrheumatic Qualified Code(s): I36.1 - Nonrheumatic tricuspid (valve) insufficiency (6) Dizziness: Code(s): R42 - Dizziness and giddiness Category: Medical (7) Peripheral vertigo: Code(s): H81.399 - Other peripheral vertigo, unspecified ear Category: Medical Qualifiers: Laterality: bilateral Qualified Code(s): H81.393 - Other peripheral vertigo, bilateral (8) Palpitations: Code(s): R00.2 - Palpitations Category: Medical (9) Influenza vaccination administered at current visit: Code(s): Z23 - Encounter for immunization Category: Medical (10) Need for Tdap vaccination: Code(s): Z23 - Encounter for immunization Category: Medical (11) Nausea & vomiting: Code(s): R11.2 - Nausea with vomiting, unspecified Category: Medical Qualifiers: Vomiting type: unspecified Qualified Code(s): R11.2 - Nausea with vomiting, unspecified Plan . Orders: Orders 2 PT Evaluation and Treatment Today H81.399 - Other peripheral vertigo, unspecified ear, R42 - Dizziness and giddiness Complete Blood Count no Diff Today R00.2 - Palpitations Comprehensive Met. Panel Today R00.2 - Palpitations Lipid Panel Today R00.2 - Palpitations Microalbumin, Random (w Creat) Today R00.2 - Palpitations TSH reflex Free T4 Today R00.2 - Palpitations Vitamin D 25-OH Total Today R00.2 - Palpitations Ferritin Today R00.2 - Palpitations Magnesium Today R00.2 - Palpitations Influenza [id number] Immunization Today Z23 - Encounter for immunization AMB Ondansetron Adult Dose Today R11.2 - Nausea with vomiting, unspecified Hemoglobin A1c Today R00.2 - Palpitations IRON PROFILE Today R00.2 - Palpitations Vitamin B12 and Folate Today R00.2 - Palpitations Phosphorus Today R00.2 - Palpitations TDaP Immunization Today Z23 - Encounter for immunization Medications: New 2 ondansetron 4 mg translingual ONCE 1 tab 0RF R11.2 - Nausea with vomiting, unspecified Patient Instructions: Health screenings for women You should visit your health care provider from time to time, even if you are healthy. The purpose of these visits is to: Screen for medical issues Assess your risk for future medical problems Encourage a healthy lifestyle Update vaccinations and other preventive care services Help you get to know your provider in case of an illness Information Even if you feel fine, you should still see your provider for regular checkups. These visits can help you avoid problems in the future. For example, the only way to find out if you have high blood pressure is to have it checked regularly. High blood sugar and high cholesterol levels also may not have any symptoms in the early stages. A simple blood test can check for these conditions. There are specific times when you should see your provider or receive specific health screenings. The [place] Preventive Services Task Force publishes a list of recommended screenings. Below are screening guidelines for women ages 18 to 39. BLOOD PRESSURE SCREENING Your blood pressure should be checked at least once every 3 to 5 years if: Your blood pressure is in the normal range (top number less than 120 mm Hg and bottom number less than 80 mm Hg) You don't have risk factors for high blood pressure Ask your provider if you need your blood pressure checked more often if: The top number is 120 to 129 mm Hg or the bottom number is 70 to 79 mm Hg You have diabetes, heart disease, kidney problems, are overweight, or have certain other health conditions You have a first-degree relative with high blood pressure You are Black You had high blood pressure during a If the top number is 130 mm Hg or greater or the bottom number is 80 mm Hg or greater, this is considered stage 1 hypertension. Schedule an appointment with your provider to learn how you can reduce your blood pressure. Watch for blood pressure screenings in your area. Ask your provider if you can stop in to have your blood pressure checked. BREAST CANCER SCREENING Experts do not agree about the benefits of breast self-exams in finding breast cancer or saving lives. Talk to your provider about what is best for you. A screening mammogram is not recommended for most women under age 40. Your provider may discuss and recommend mammograms, MRI scans, or ultrasounds if you have an increased risk for breast cancer, such as: A mother or sister who had breast cancer at a young age (most often starting screening earlier than the age the close relative was diagnosed) You carry a high-risk genetic marker CERVICAL CANCER SCREENING Cervical cancer screening should start at age 21 years unless your provider advises otherwise. After the first test: Women ages 21 through 29 should have a Pap test every 3 years. Exoprts do not agree on whether HPV testing is recommended for this age group. Women ages 30 through 65 should be screened with either a Pap test every 3 years or the HPV test every 5 years or both tests every 5 years (called cotesting ). Women who have been treated for precancer (cervical dysplasia) should continue to have Pap tests for 20 years after treatment or until age 65, whichever is longer. If you have had your uterus and cervix removed (total hysterectomy), and you have not been diagnosed with cervical cancer or precancer (high grade cervical neoplasia), you do not need cervical cancer screening. CHOLESTEROL SCREENING Cholesterol screening should begin at: Age 45 for women with no known risk factors for coronary heart disease Age 20 for women with known risk factors for coronary heart disease Repeat cholesterol screening should take place: Every 5 years for women with normal cholesterol levels More often if changes occur in lifestyle (including weight gain and diet) More often if you have diabetes, heart disease, kidney problems, or certain other conditions DIABETES SCREENING You should be screened for diabetes starting at age 35 and then repeated every 3 years if you have no risk factors for diabetes. Screening may need to start earlier and be repeated more often if you have other risk factors for diabetes, such as: You have a first degree relative with diabetes. You are overweight or have obesity. You have high blood pressure, prediabetes, or a history of heart disease. Screening for diabetes should be done if you are planning to become and you are overweight and have other risk factors such as high blood pressure. DENTAL EXAM Go to the dentist once or twice every year for an exam and cleaning. Your dentist will evaluate if you need more frequent visits. EYE EXAM Have an eye exam every 5 to 10 years before age 40. If you have vision problems, have an eye exam every 2 years or more often if recommended by your provider. You should have an eye exam that includes an examination of your retina (back of your eye) at least every year if you have diabetes. IMMUNIZATIONS Commonly needed vaccines include: Flu shot: get one every year. COVID-19 vaccine: ask your provider what is best for you. Tetanus-diphtheria and acellular pertussis (Tdap) vaccine: have one at or after age 19 as one of your tetanus-diphtheria vaccines if you did not receive it as an adolescent. Tetanus-diphtheria: have a booster (or Tdap) every 10 years. Varicella vaccine: receive 2 doses if you never had chickenpox or the varicella vaccine. Hepatitis B vaccine: receive 2, 3, or 4 doses, depending on your exact circumstances. Measles, mumps, and rubella (MMR) vaccine: receive 1 to 2 doses if you are not already immune to MMR. Your provider can tell you if you are immune. Ask your provider about the human papillomavirus (HPV) vaccine if: You have not received the HPV vaccine in the past You have not completed the full vaccine series (you should catch up on this shot) Ask your provider if you should receive other immunizations if you have certain health problems that increase your risk for some diseases such as pneumonia. INFECTIOUS DISEASE SCREENING Women who are sexually active should be screened for chlamydia and gonorrhea up until age 25. Women 25 years and older should be screened for chlamydia and gonorrhea if at high risk. Screening for hepatitis C: All adults ages 18 to 79 should get a one-time test for hepatitis C. people should be screened at every . Screening for human immunodeficiency virus (HIV): All people ages 15 to 65 should get a one-time test for HIV. Depending on your lifestyle and medical history, you may also need to be screened for infections such as syphilis and HIV, as well as other infections. PHYSICAL EXAM All adults should visit their provider from time to time, even if they are healthy. The purpose of these visits is to: Screen for disease Assess your risk of future medical problems Encourage a healthy lifestyle Update your vaccinations and other preventive care services Maintain a relationship with a provider in case of an illness Your height, weight, and BMI should be checked at every exam. During your exam, your provider may ask you about: Depression and anxiety Diet and exercise Alcohol and tobacco use Safety issues, such as using seat belts, smoke detectors, and intimate partner violence Your medicines and risk for interactions SKIN SELF-EXAM Your provider may check your skin for signs of skin cancer, especially if you're at high risk, such as if you: Have had skin cancer before Have close relatives with skin cancer Have a weakened immune system OTHER SCREENING Talk with your provider about colon cancer screening if you have a strong family history of colon cancer or polyps, or if you have had inflammatory bowel disease or polyps yourself. Routine bone density screening of women under 40 is not recommended.
[2024-11-04 12:11] VITALS: BP 108/72; PULSE 86; RESP 16; TEMP 37; O2SAT 96; BMI 23.7
== END 2024-11-04 13:34 | disposition home or self-care (01) ==
LOC: HO.HMCFM 11:56
PROVIDERS: PCP Nurse Practitioner Family; Visit Provider Nurse Practitioner Family
DX: Z00.01 Encounter for general adult medical examination with abnormal findings (principal); F33.0 Major depressive disorder, recurrent, mild; K21.9 Gastro-esophageal reflux disease without esophagitis; R01.1 Cardiac murmur, unspecified; I36.1 Nonrheumatic tricuspid (valve) insufficiency; R42 Dizziness and giddiness; H81.393 Other peripheral vertigo, bilateral; R00.2 Palpitations; Z23 Encounter for immunization; R11.2 Nausea with vomiting, unspecified; R55 Syncope and collapse

== ENCOUNTER → 2024-11-04 11:55 | Outpatient (BNVA) | payer OTHER, SELFPAY | PROVIDERS: PCP Nurse Practitioner Family; Visit Provider Nurse Practitioner Family ==

== ENCOUNTER 2024-11-04 13:10 | Outpatient (REF) | payer OTHER, SELFPAY | END 2024-11-04 13:11 | disposition home or self-care (01) | LOC: HO.WFDLDS 13:10 | PROVIDERS: Visit Provider Nurse Practitioner Family | DX: Z00.01 Encounter for general adult medical examination with abnormal findings (principal); Z23 Encounter for immunization; F33.0 Major depressive disorder, recurrent, mild; K21.9 Gastro-esophageal reflux disease without esophagitis; R01.1 Cardiac murmur, unspecified; I36.1 Nonrheumatic tricuspid (valve) insufficiency; H81.393 Other peripheral vertigo, bilateral; R00.2 Palpitations; R11.2 Nausea with vomiting, unspecified | CPT/HCPCS: 90471; 90472; 90656; 90715; 96127; 99212; 99395 ==

== ENCOUNTER 2024-11-07 05:50 | Emergency (ER) | payer OTHER, SELFPAY ==
--- NOTE | 2024-11-07 | ECG_ITS ---
Test Reason : CP Blood Pressure : */* mmHG Vent. Rate : 69 BPM Atrial Rate : 69 BPM P-R Int : 124 ms QRS Dur : 82 ms QT Int : 430 ms P-R-T Axes : 67 17 39 degrees QTcB Int : 460 ms Normal sinus rhythm with sinus arrhythmia Normal ECG When compared with ECG of 04-Jan-2024 07:43, No significant change was found Referred By: Generic ED Physician Electronically Signed By: JULISSA KWONG
[2024-11-07 06:14] VITALS: BP 104/59; PULSE 71; RESP 18; TEMP 36.7; O2SAT 100; BMI 23.6
[2024-11-07 06:37] VITALS: BP 113/72; PULSE 63; RESP 13; TEMP 36.8; O2SAT 98
[2024-11-07 06:41] LABS: MANUAL DIFF FLAG NO
[2024-11-07 06:45] LABS: Basophils Absolute Auto 0.1 X10*3/uL (0.0-0.2); Basophils Percent Auto 0.4 % (0-2); Eosinophils Percent Auto 0.2 % (0-4); Hematocrit 37.5 % (37.0-47.0); Hemoglobin 12.6 g/dl (12.0-16.0); Imm Gran Abs Auto 0.03 X10*3/uL (0.00-0.03); Imm Gran Pct Auto 0.2 % (0.0-0.4); Lymphocytes Absolute Auto 1.7 X10*3/uL (1.2-4.9); Lymphocytes Percent Auto 14.1 % (20-40); Mean Corpuscular HGB Conc 33.6 g/dl (31.0-35.0); Mean Corpuscular Hemoglobin 28.4 pg (27.0-33.0); Mean Corpuscular Volume 84.7 fL (80.0-98.0); Mean Platelet Volume 10.9 fL (9.4-12.3); Monocytes Absolute Auto 0.6 X10*3/uL (0.1-1.2); Monocytes Percent Auto 4.6 % (2-11); Neutrophils Absolute Auto 9.8 x10*3/uL (2.0-8.3); Neutrophils Percent Auto 80.5 % (45-73); Platelet Count 312 X10*3/uL (160-400); Red Blood Count 4.43 X10*6/uL (4.20-5.50); Red Cell Distribution Width 12.2 % (11.0-16.0); White Blood Count 12.1 X10*3/uL (4.8-10.8)
[2024-11-07 07:00] LABS: Alanine Aminotransferase 13 U/L (0-31); Albumin Level 4.2 g/dL (3.5-5.0); Alkaline Phosphatase 82 U/L (39-117); Anion Gap 14 (12-20); Aspartate Amino Transferase 22 U/L (5-31); Bilirubin Total 0.4 mg/dL (0.0-1.0); Blood Urea Nitrogen 6 mg/dL (9-16); Calcium 9.1 mg/dL (8.4-10.2); Carbon Dioxide 23 mmol/L (22-29); Chloride 107 mmol/L (96-108); Creatinine Clr Calc Pharmacy 123.5; Estimated Glomerular Filt Rate > 60; Glucose Random 111 mg/dL (60-115); Potassium 4.2 mmol/L (3.3-5.1); Sodium 140 mmol/L (135-145); Total Protein 7.2 g/dL (6.5-8.0)
--- NOTE | 2024-11-07 07:31 | PC.NURSE ---
Pt is alert and oriented. Vomiting small amount of bile on first contact with pt. This RN and Dr Dash at bedside and plan for IV fluids and antiemetic. Mother at bedside who states pt has these episodes every few months and has yet to see specialist at this time. Reports mild abd pain and chest pain, denies cough but reports some SOB. Denies marijuana use or chance of . Skin pale, warm and dry. NSR on tele. Speaking full sentences.
--- NOTE | 2024-11-07 07:36 | ED_ITS ---
HPI - Nausea/Vomiting/Diarrhea General Chief complaint: Nausea/Vomiting/Diarrhea Stated complaint: n/v Time Seen by Provider: 11/07/24 07:04 History of Present Illness HPI Narrative: Patient is a 24-year-old female presents today with having nausea vomiting generalized malaise has a history of the same. s/p cholecystectomy, with chronic abdominal pain, IBS . Patient had CT scan of the abdomen done in January of last year which showed the same. Be currently being followed by GI. Complaining of nausea vomiting again. Generalized malaise. Vomiting causes burning to the chest. Patient denies any cardiac history. No diabetes no high blood pressure no high cholesterol. Positive history of anxiety. Related Data Home Medications ?Medication ?Instructions ?Recorded ?Confirmed trazodone 50 mg tablet 50 mg PO BEDTIME PRN 03/03/24 11/04/24 lamotrigine 150 mg tablet 150 mg PO DAILY 03/17/24 11/04/24 Previous Rx's ?Medication ?Instructions ?Recorded norelgestromin 150 mcg-e.estradiol 1 patch transdermal QWEEK 3 weeks 09/03/24 35 mcg/24 hr weekly transderm #9 ea patch (Xulane) Allergies Allergy/AdvReac Type Severity Reaction Status Date / Time No Known Allergies Allergy Verified 11/07/24 06:17 Review of Systems 2 Review of Systems: Positive nausea vomiting Yes all other systems are reviewed and are negative PMFSH Past Medical History Attestation statement: The following information was validated with the patient. 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 COVID-19 vaccine series completed Anxiety Depression Gastroesophageal reflux disease Surgical History S/P laparoscopic cholecystectomy (01/23/21) [place] teeth removed H/O eye surgery Family History Family History Maternal Grandfather Lymphoma Family/Other Lung cancer Family/Other History of kidney cancer Sister Anxiety Depression Maternal Grandmother Depression Social History Social History Household Members: Family Household Members Other:: Patient lives with Grandmother Housing: House Are you a primary animal care worker to a significant other at home: No Do you presently have visiting nurse or other home services: No Alcohol intake: never Comment: medicated in pacu Patient Tobacco Use Status: Never used Tobacco Smoked in Last 30 Days: No e-Cigarette/Vaping Use: Never Used Second Hand Smoke Exposure: No Use of substances other than those prescribed or required for medical reasons: No Advance Directives: No Advance Directives Information Provided: Yes Patient : No service: No Current occupational status: unemployed Current occupational exposures/hazards: No Cognitive needs: No Hearing needs: No Vision needs: No Physical Exam 2 Vital Signs: Vital Signs: Last Vital Signs Temp 98.2 F 11/07/24 06:37 Pulse 71 11/07/24 07:57 Resp 16 11/07/24 07:57 BP 114/69 11/07/24 07:57 Pulse Ox 98 11/07/24 07:57 O2 Del Method Room Air 11/07/24 07:57 BMI result Body Mass Index 23.6 Appearance: Alert. Oriented X3. No acute distress. Eyes: Pupils equal, round and reactive to light. ENT: Pharynx normal. Neck: Normal inspection. Neck supple. No lymph nodes noted. No crepitus CVS: Normal heart rate and rhythm. Pulses normal. Normal S1 and S2 Respiratory: No respiratory distress. Breath sounds normal. No Wheezing. No rales Abdomen: Soft and nontender. No rigidity. No distention. good BS x4 Skin: Skin warm and dry. Normal skin color. Normal skin turgor. Extremities: No lower extremity edema. Neurovascular intact to all extremities. No Lacerations. No Rash Neuro: Oriented X 3. No motor deficit. No sensory deficit. Moving all extermities. No slurred speech Medications Administered Discontinued Medications Generic Name Dose Route Start Last Admin Trade Name Freq PRN Reason Stop Dose Admin Sodium Chloride 1,000 mls @ 999 mls/hr 11/07/24 07:45 11/07/24 09:07 Ns IV 11/07/24 08:45 Infused .Q1H1M FRANCISCO Infusion Sodium Chloride 1,000 mls @ 999 mls/hr 11/07/24 07:45 11/07/24 09:07 Ns IV 11/07/24 08:45 999 mls/hr .Q1H1M FRANCISCO Administration Metoclopramide HCl 10 mg 11/07/24 09:15 11/07/24 09:23 Metoclopramide Hcl 10 Mg/2 Ml Vial IVPUSH 11/07/24 09:16 10 mg ONCE ONE Administration Ondansetron HCl 4 mg 11/07/24 07:36 11/07/24 07:56 Ondansetron Hcl 4 Mg/2 Ml Vial IVPUSH 11/07/24 07:37 4 mg ONCE ONE Administration Medical Decision Making Medical Decision Making [facility] Narrative: patient has a history of the same. Been worked up by GI in the past. Status post cholecystectomy. In no acute distress. Complaining of nausea vomiting. Given Zofran given Reglan with good relief of symptoms. Electrolytes unremarkable. Elected not to do another CT on patient as she had 1 done last year for similar complaints and had notable follow-up with GI in the past. Will discharge patient home currently Differential Diagnosis Differential Diagnoses: The differential diagnosis associated with the presentation includes obstruction, nausea vomiting, reflux, anxiety Lab Data [facility] Lab Attestation statement: I reviewed the patient's lab results. 11/07/24 06:35 11/07/24 06:35 Labs: Lab Results 11/07/24 Range/Units 06:35 WBC 12.1 H (4.8-10.8) X10*3/uL RBC 4.43 (4.20-5.50) X10*6/uL Hgb 12.6 (12.0-16.0) g/dl Hct 37.5 (37.0-47.0) % MCV 84.7 (80.0-98.0) fL MCH 28.4 (27.0-33.0) pg MCHC 33.6 (31.0-35.0) g/dl RDW 12.2 (11.0-16.0) % Plt Count 312 (160-400) X10*3/uL MPV 10.9 (9.4-12.3) fL Immature Gran % (Auto) 0.2 (0.0-0.4) % Neut % (Auto) 80.5 H (45-73) % Lymph % (Auto) 14.1 L (20-40) % [place] % (Auto) 4.6 (2-11) % Eos % (Auto) 0.2 (0-4) % Baso % (Auto) 0.4 (0-2) % Lymph # (Auto) 1.7 (1.2-4.9) X10*3/uL [place] # (Auto) 0.6 (0.1-1.2) X10*3/uL Eos # (Auto) 0.0 (0.0-0.4) X10*3/uL Baso # (Auto) 0.1 (0.0-0.2) X10*3/uL Abs Immat Gran (auto) 0.03 (0.00-0.03) X10*3/uL Absolute Neuts (auto) 9.8 H (2.0-8.3) x10*3/uL Absolute Nucleated RBC 0.000 (0.0-0.012) X10*3/uL Nucleated RBC % (auto) 0.0 (0.0-0.2) /100WBC Sodium 140 (135-145) mmol/L Potassium 4.2 (3.3-5.1) mmol/L Chloride 107 (96-108) mmol/L Carbon Dioxide 23 (22-29) mmol/L Anion Gap 14 (12-20) BUN 6 L (9-16) mg/dL Creatinine 0.74 (0.5-1.4) mg/dL Estim Creat Clear Calc 123.5 Estimated GFR > 60 Random Glucose 111 (60-115) mg/dL Calcium 9.1 (8.4-10.2) mg/dL Total Bilirubin 0.4 (0.0-1.0) mg/dL AST 22 (5-31) U/L ALT 13 (0-31) U/L Alkaline Phosphatase 82 (39-117) U/L Total Protein 7.2 (6.5-8.0) g/dL Albumin 4.2 (3.5-5.0) g/dL Independent Historian Clinical information obtained from an independent historian. History obtained from or confirmed by: Parent External Record Review External record reviewed: Inpatient record and Office record Chronic Conditions history of irritable bowel syndrome Social Determinants Patient?s care significantly limited by Social Determinants of Health including: Problems related to primary support group Discharge Plan Discharge Clinical Impression: Nausea & vomiting Qualifiers: Vomiting type: unspecified Qualified Code(s): R11.2 - Nausea with vomiting, unspecified Patient Disposition: Home, Self-Care Instructions: Acute Nausea and Vomiting (ED) Prescriptions: No Action lamotrigine 150 mg tablet 150 mg PO DAILY Patient Comments: TAKING 250 MG trazodone 50 mg tablet 50 mg PO BEDTIME PRN norelgestromin-ethin.estradiol [Xulane] 150-35 mcg/24 hr patch weekly 1 patch transdermal QWEEK 21 Days Qty: 9 2RF Rx Instructions: wear one patch a week, for 3 weeks, then one week is patch free (off for one week). Referrals: Jia Lane FNP-BC [Primary Care Provider] - 11/10/24 Print Language: Greenlandic
[2024-11-07] MEDS: 0.9 % Sodium Chloride 1,000 ML 999 ML IV ×2 (07:56→09:07)
[2024-11-07] MEDS: ondansetron HCL 4 MG/2 ML VIAL IVPUSH (07:56)
[2024-11-07 07:57] VITALS: BP 114/69; PULSE 71; RESP 16; O2SAT 98
[2024-11-07] MEDS: Metoclopramide HCl 10 MG/2 ML VIAL IVPUSH (09:23)
[2024-11-07 10:34] VITALS: BP 95/56; PULSE 91; RESP 16; TEMP 36.1; O2SAT 100
== END 2024-11-07 10:36 | disposition home or self-care (01) ==
PROVIDERS: Emergency Provider Emergency Medicine Emergency Medical Services; PCP Nurse Practitioner Family
DX: R11.2 Nausea with vomiting, unspecified (principal); Z79.899 Other long term (current) drug therapy
CPT/HCPCS: 36415; 80053; 85025; 93005; 96361; 96374; 96375; 99284; J2405; J2765

== ENCOUNTER → 2024-11-07 06:30 | Outpatient (BNV) | payer OTHER, SELFPAY | PROVIDERS: Emergency Provider Emergency Medicine Emergency Medical Services; PCP Nurse Practitioner Family; Visit Provider Internal Medicine | DX: R07.9 Chest pain, unspecified (principal) | CPT/HCPCS: 93010 ==

== ENCOUNTER 2025-01-04 12:44 | Outpatient (AMB) | payer OTHER, SELFPAY ==
--- NOTE | 2025-01-04 12:45 | MHC.OFFVIS ---
Intake Visit Reasons: [phone] Vomiting/abd pain Intake Note: Halle presents as a [facility] today as a new patien for abdominal pains and vomiting. CC: Denies irregular bowel movements but states she has N/V with abdominal pains. No blood in the stool. Material Handling Technician Required: No Allergies No Known Allergies Allergy (Verified 11/07/24 06:17) HPI Comments Details: 24 y.o F with PMH of chronic N/V [facility] Prev [facility] patient. Reports has been ongoing for almost 2 years. Has intermittent episodes of N/V that occurs every few months. When the episode does occur, lasts almost a day. Also has abd discomfort with this which is central. No personal or fam hx of migraines. Says she can almost feel it coming a day prior to the N/V. The N/V is not always related to menstrual cramping. She is back to baseline and fine in between the two episodes. Does not use marijuana. Prev imaging neg for GOO, enteritis. Head CT normal. [facility] Medical History Bilateral congenital wquozr-buwvkdg-orzqw reflux TMJ dysfunction COVID-19 vaccine series completed Anxiety Depression Gastroesophageal reflux disease Surgical History S/P laparoscopic cholecystectomy (01/23/21) [place] teeth removed H/O eye surgery Family History Maternal Grandfather Lymphoma Family/Other Lung cancer Family/Other History of kidney cancer Sister Anxiety Depression Maternal Grandmother Depression Social History Household Members: Family Household Members Other:: Patient lives with Grandmother Housing: House Are you a primary tree care foreman to a significant other at home: No Do you presently have visiting nurse or other home services: No Alcohol intake: never Comment: medicated in pacu Patient Tobacco Use Status: Never used Tobacco e-Cigarette/Vaping Use: Never Used Second Hand Smoke Exposure: No service: No Current occupational status: unemployed Current occupational exposures/hazards: No Cognitive needs: No Hearing needs: No Vision needs: No Female Reproductive History Menstrual Age of Menarche: 17 Review of Systems Const All systems reviewed & are unremarkable except as noted in HPI and below Physical Exam Vital Signs: Video visit: No acute distress No icterus noted No facial asymmetry Speaking in full sentences Telehealth Telehealth Telehealth Platform: [employer] Location of provider rendering services: practice address Location of patient: address on file Patient Identification confirmed using: Name, : Yes Telehealth method: video Patient verbally consented to treatment: Yes Patient verbally consented to billing insurance company: Yes Patient informed of any privacy concerns related to visit: Yes Minutes spent on Phone/Video with Pt.: 25 Assessment & Plan Assessment & Plan (1) Nausea & vomiting: Code(s): R11.2 - Nausea with vomiting, unspecified Category: Medical Qualifiers: Vomiting type: unspecified Qualified Code(s): R11.2 - Nausea with vomiting, unspecified (2) Abdominal pain: Code(s): R10.9 - Unspecified abdominal pain Category: Medical Qualifiers: Abdominal location: generalized Qualified Code(s): R10.84 - Generalized abdominal pain Plan Has episodic N/V with prodromal sx - very suspicious for cyclical vomiting syndrome. Other ddx includes abdominal migraine, delayed gastric emptying - although would not expect this to be episodic, gastritis, PUD. Low suspicion for CHS since does not report marijuana use. has 2-3 episodes a year. plan: - Check labs for thyroid and celiac - EGD to be booked - Trial of sumatriptan for abortive therapy - If has increase in frequency of symptoms can consider TCA trial for prophylaxis Follow up after EGD Orders: Orders TSH reflex Free T4 Today R11.2 - Nausea with vomiting, unspecified Immunoglobulin A Today R11.2 - Nausea with vomiting, unspecified Transglutaminase IgA Today R11.2 - Nausea with vomiting, unspecified Medications: New sumatriptan 10 mg/actuation administer into one nostril as a single dose; if 2nd dose needed,administer into other nostril after at least 2 hrs, do not take more than 2 doses (40 mg) per episode 20 mg intranasal Q2H PRN 6 ea 0RF cyclical vomiting syndrome Coding Level of Care Code Tele New Pt Level 4 (48826) Diagnoses Nausea and vomiting, unspecified vomiting type R11.2 Vomiting type: unspecified Generalized abdominal pain R10.84 Abdominal location: generalized
== END 2025-01-04 16:33 | disposition home or self-care (01) ==
LOC: HO.HGI 12:44
PROVIDERS: PCP Nurse Practitioner Family; Visit Provider Internal Medicine
DX: R11.2 Nausea with vomiting, unspecified (principal); R10.84 Generalized abdominal pain
CPT/HCPCS: 99204

== ENCOUNTER 2025-01-12 09:00 | Outpatient (RCR) | payer OTHER, SELFPAY ==
[2024-12-11 13:11] VITALS: BP 115/80; PULSE 72; O2SAT 96
--- NOTE | 2024-12-11 14:36 | MHC.PT.EP ---
[facility] [place] Office [place] Office [place] Office [address] Aden Blue [address] [phone] F: [phone] F: [phone] F: [phone] F: [phone] Physical Therapy Plan of Care Date of Evaluation: 12/11/24 Date of Surgery: Diagnosis: This is a 24 yo female presenting to skilled PT with a script for BPPV. Assessment: This is a 24 yo female presenting to skilled PT with a script for BPPV. Patient reporting vertigo which she was hospitalized for last year. She said she had good results with PT. Symptoms increase with moving her head side to side too fast. Symptoms are occasional with the last symptoms a few days ago. She endorses nauseous at times. Symptoms are described as blurry vision, hearing goes out and dizziness. Symptoms are for a few seconds only. Examination shows + oculomotor tests with saccades, (-) VBI B, and normal cervical AROM. She was (+) for BPPV with oswald-hallpike R and sara maneuver which was improved s/p tx. Balance was decreased with [place] SOPT and DGI which may be vertigo and or poor balance which she also endorses at baseline. S/S consistent with R PC BPPV and she would benefit from PT 2x/wk for 4wks to address impairments, implement HEP and optimize functional mobility. Frequency and Duration: The patient will be seen 2x/wk for 4wks Short Term Goals: Radiology Asst Goals: I in HEP Negative in all 6 canals for dizziness and nystagmus Return to normal gait pattern without reports fo LOB due to dizziness Treatment Plan: Modalities to reduce pain, spasms and effusion. Manual therapy to restore motion and function. Therapeutic exercise to improve strength and flexibility. Neuromuscular re-education for posture and balance. Therapeutic activities to return to functional activities of daily living. Electronically signed by: Bere Merrill PT Please sign and return to therapist. Thank you for your referral.
--- NOTE | 2025-02-09 08:40 | MHC.PT.DC ---
[facility] [place] Office [place] Office [place] Office [address] Aden Blue [address] [phone] F: [phone] F: [phone] F: [phone] F: [phone] Physical Therapy Discharge Report Diagnosis: This is a 24 yo female presenting to skilled PT with a script for BPPV. Date of Surgery: Date of Evaluation: 12/11/24 Date of Discharge: 02/09/25 Treatments to Date: 6 Cancellations to Date: 0 No Shows to Date: 0 Discharge Status: Achieved Goals Improved Function Patient Elected to Stop Discharge Summary: 01/12: Patient without any nystagmus in all 6 canals. She reported that she also didn't feel symptoms throughout the assessment either. I varied the head angle for the R hallpike without any change in eye movement either. Patient wants to keep her last scheduled appointment and be re-checked once more however ended up cancelling this and self DCing, chart was closed after 30 days. Electronically signed by: Bere Merrill PT Please sign and return to therapist. Thank you for your referral.
== END 2025-02-09 08:41 | disposition home or self-care (01) ==
LOC: HO.PTCHIC 09:00
PROVIDERS: PCP Nurse Practitioner Family; Visit Provider Nurse Practitioner Family
DX: H81.399 Other peripheral vertigo, unspecified ear (principal)
CPT/HCPCS: 95992; 97110; 97161

== ENCOUNTER 2025-04-30 12:49 | Day surgery (SDC) | payer OTHER, SELFPAY ==
--- NOTE | 2025-04-30 13:19 | P.HPSUR_ITS ---
Pre-Procedural Eval Section A - 24 Hr Update-Section A only Date of Service: 04/30/25 Section B - Complete if H&P > 30 days Chief Complaint: Nausea with vomiting, unspecified Details of Present Illness: Medical History Bilateral congenital fukfiv-vbdmdtp-zuovl reflux TMJ dysfunction COVID-19 vaccine series completed Anxiety Depression Gastroesophageal reflux disease Surgical History S/P laparoscopic cholecystectomy (01/23/21) [place] teeth removed H/O eye surgery Present Medications: see Short Stay Collaborative assessment Allergies: Allergies Allergy/AdvReac Type Severity Reaction Status Date / Time No Known Allergies Allergy Verified 11/07/24 06:17 Review of Systems Review of Systems Comment: Ten point ROS negative Exam Exam Comment: Gen appear: No acute distress HEENT: no icterus Chest: No overt resp distress Abd: soft, nontender, nondistended Psych: Stable affect, answering questions appropriately Neuro: A/Ox3 noted to move all extremities spontaneously Ext: no peripheral edema Plan Diagnosis/Plan: Unchanged I have reviewed the history and physical and performed a pertinent physical examination on my patient. No changes have occurred unless specified. Time Spent With Patient Time: Total time managing care of this patient today ____ minutes.
[2025-04-30 13:38] VITALS: BMI 24.2
[2025-04-30 13:39] VITALS: BP 123/77; PULSE 86; RESP 15; TEMP 36.7; O2SAT 98
[2025-04-30 13:45] LABS: UPreg QC Valid YES
[2025-04-30] MEDS: Lactated Ringers 1,000 ML 50 ML IVCONT (13:54)
--- NOTE | 2025-04-30 15:20 | P.OP_ITS ---
Operative Note Operative Note Date of Service: 04/30/25 Narrative: Procedure: Esophagogastroduodenoscopy Endoscopist: Peyton Tabares MD Indication: Abd pain, N,V Anesthesia Provider: Dr Martínez Anesthesia Type: MAC EGD Procedure:?? The procedure, indications, preparation and potential complications were reviewed with the patient, who indicated understanding and gave written informed consent to proceed. A physical exam was performed. The endoscope was introduced through the mouth, and advanced to the second part of duodenum. The mucosa was carefully examined on slow withdrawal of the endoscope. The patient tolerated the procedure well. There were no immediate complications.? ? EGD Findings:? * Esophagus:? Normal mucosa noted in the entire esophagus. The Z line was at 40 cm. Middle and lower esophagus forceps biopsies were obtained to rule out eosinophilic esophagitis. * Stomach:? Erythema and scant heme noted in the body and antrum of the stomach. Retroflexion was performed in the cardia. Random cold forceps gastric biopsies were taken to rule out H Pylori infection. * Duodenum:? Normal mucosa was noted in the whole of the examined duodenum. Cold forceps biopsies were taken from duodenal bulb and second portion of the duodenum to rule out celiac sprue. ? EGD Impressions:? * Normal esophagus (biopsy) * Gastritis (biopsy) * Normal duodenum (biopsy) ?? Recommendations:?? * Follow biopsy results. Our office will call or send a letter with results within 7-10 days. * Start Omeprazole 20 once daily * If H pylori +, patient will be prescribed eradication therapy followed by test of cure. * Avoid NSAIDs. Above has been reviewed with the patient.
[2025-04-30 15:22] VITALS: BP 90/55; PULSE 83; RESP 16; TEMP 36.9; O2SAT 95
[2025-04-30 15:37] VITALS: BP 90/55; PULSE 67; RESP 16; TEMP 36.8; O2SAT 100
--- NOTE | 2025-04-30 15:48 | HO.ANESPROP2 ---
[facility] Active Problems Active Problems: All Active Problems (Updated 04/30/25 @ 13:53 by Jessica Higuera RN) Need for Tdap vaccination (Acute) Influenza vaccination administered at current visit (Acute) Palpitations (Acute) Intractable vomiting (Acute) Peripheral vertigo (Acute) Tricuspid valve regurgitation (Acute) Heart murmur (Acute) Nausea & vomiting (Acute) Dizziness (Acute) Depression (Acute) TMJ dysfunction (Acute) Gastroesophageal reflux disease (Acute) Past Medical History Medical History Murmur Bilateral congenital mqoiuc-ofieaxt-wzgbj reflux TMJ dysfunction COVID-19 vaccine series completed Anxiety Depression Gastroesophageal reflux disease Functional capacity: independent ambulation Family History Family History Maternal Grandfather Lymphoma Family/Other Lung cancer Family/Other History of kidney cancer Sister Anxiety Depression Maternal Grandmother Depression Family history of problems with anesthesia: No Surgical History Surgical History S/P laparoscopic cholecystectomy (01/23/21) [place] teeth removed H/O eye surgery History of Problems with Anesthesia: No Social History Social History Household Members: Family Household Members Other:: Patient lives with Grandmother Housing: House Are you a primary healthcare architect to a significant other at home: No Do you presently have visiting nurse or other home services: No Alcohol intake: never Comment: medicated in pacu Patient Tobacco Use Status: Never used Tobacco e-Cigarette/Vaping Use: Never Used Second Hand Smoke Exposure: No service: No Current occupational status: unemployed Current occupational exposures/hazards: No Cognitive needs: No Hearing needs: No Vision needs: No Meds Allergies Allergy/AdvReac Type Severity Reaction Status Date / Time No Known Allergies Allergy Verified 04/30/25 13:27 Active Medications: Current Medications Lactated Ringer's (Lr) 1,000 mls @ 50 mls/hr IVCONT .Q20H FRANCISCO Last Admin: 04/30/25 13:54 Dose: 50 mls/hr Home Medications ?Medication ?Instructions ?Recorded ?Confirmed ?Last Taken ?Type trazodone 50 mg tablet 50 mg PO BEDTIME PRN Insomnia 07/30/24 09/26/25 Unknown History sertraline 25 mg tablet 25 mg PO DAILY 04/30/25 04/30/25 Unknown History Exam Exam Date and Time: 04/30/2025 Height,Weight and Vital Signs: Height 5 ft 9 in Weight 74.389 kg Last Vital Signs Temp 98.2 F 04/30/25 15:37 Pulse 67 04/30/25 15:37 Resp 16 04/30/25 15:37 BP 90/55 L 04/30/25 15:37 Pulse Ox 100 04/30/25 15:37 O2 Del Method Room Air 04/30/25 15:37 O2 Flow Rate 2 04/30/25 15:22 Pertinent Lab Results Pertinent Lab Results: Laboratory Tests 04/30/25 13:30 Urine Test NEGATIVE Assessment and Plan Final Anesthetic Review Family History of Problems with Anesthesia: No History of Problems with Anesthesia: No
== END 2025-04-30 15:59 | disposition home or self-care (01) ==
PROVIDERS: Anesthesiology; PCP Nurse Practitioner Family; Visit Provider Internal Medicine
PROC: 0DJ08ZZ Inspection of Upper Intestinal Tract, Via Natural or Artificial Opening Endoscopic (ICD-10-PCS; CPT 43235; principal; 2025-04-30 14:20)
DX: K29.50 Unspecified chronic gastritis without bleeding (principal); R11.2 Nausea with vomiting, unspecified; K21.9 Gastro-esophageal reflux disease without esophagitis; N13.732 Vesicoureteral-reflux with reflux nephropathy with hydroureter, bilateral; M26.609 Unspecified temporomandibular joint disorder, unspecified side; F32.A Depression, unspecified; F41.9 Anxiety disorder, unspecified; Z90.49 Acquired absence of other specified parts of digestive tract; Z98.890 Other specified postprocedural states
CPT/HCPCS: 43239; 81025; 88305; 88313; 88342; J2003; J2704; J3010

== ENCOUNTER → 2025-04-30 12:49 | Outpatient (BNV) | payer OTHER, SELFPAY | PROVIDERS: PCP Nurse Practitioner Family; Visit Provider Internal Medicine | DX: R11.2 Nausea with vomiting, unspecified (principal); R10.9 Unspecified abdominal pain; K29.70 Gastritis, unspecified, without bleeding | CPT/HCPCS: 43239 ==